=== PATIENT | female | born 1965 | race African-American/Black ===

== ENCOUNTER 2016-11-20 08:23 | Observation (INO) | payer MEDICARE, MEDICAID ==
[~2016-11-20] VITALS: Ht 170.2 cm; Wt 69.8 kg
[~2016-11-20 08:23] MED LIST: INTE30KI IM; MORP1INJ45 PO
--- NOTE | 2016-11-20 14:21 | MH ---
cc: Donnell MALDONADO M.D. DATE OF ADMISSION: 11/21/2016 ADMITTING DIAGNOSIS Bilateral knee contractures with multiple sclerosis. HISTORY OF PRESENT ILLNESS This is a 51-year-old female, known multiple sclerosis patient, being admitted today due to contractures of both knees. She states she has been like this for about a month, is being followed by Dr. Costello her neurologist as well and will most likely need aggressive therapy after surgery. PAST MEDICAL HISTORY 1. Multiple sclerosis. 2. She has developed an ulcer on the skin of her left anterior collins. 3. Anxiety. MEDICATIONS Current medication includes Percocet. REVIEW OF SYSTEMS Noncontributory. FAMILY HISTORY Noncontributory. SOCIAL HISTORY She does not smoke or drink. ALLERGIES No known allergies. PAST SURGICAL HISTORY Right total knee arthroplasty in the past. PHYSICAL EXAMINATION GENERAL: I find a 51-year-old female cachectic, well-nourished, oriented x3, complaining of pain in her legs. VITAL SIGNS: Blood pressure 102/82, pulse 78 and regular, respirations 22, temperature 98.0. Pulse oximetry 98% on room air. HEENT: PERRLA. EOMI. Ears, nose and mouth clear. NECK: Supple. LUNGS: Clear. HEART: Regular rate. ABDOMEN: Soft. Positive bowel sounds. Nontender. EXTREMITIES: Both lower extremities are contracted to 120 degrees of flexion. Any attempt of motion elicits pain. She has an abrasion on the left lower extremity on the anterior collins just above her ankle from pressure. Otherwise she is neurovascularly intact. IMPRESSION The impression at this time is bilateral knee contractures. PLAN The plan is for the patient to undergo manipulation under anesthesia today to see how much range of motion we can get with her, followed by consult and follow-up with Dr. Costello, neurologist, and possible admission to [place] for aggressive therapy after hospital stay. MD SHILO Herrera/NEVA /2:03 PM /2:13 PM
[2016-11-21] MEDS: SODIUM CHLORID 0.9% 500 ML IV SCH (09:00)
[2016-11-21] MEDS ORDERED: METOPROLOL TARTRATE 25 MG TAB PO PRN (09:00)
[2016-11-21] MEDS ORDERED: INSULIN HUMAN REGULAR 1,000 UNITS/10 ML VIAL SQ PRN (09:00)
[2016-11-21 09:05] VITALS: BP 151/82; PULSE 87; RESP 18; TEMP 98.8; O2SAT 99
[2016-11-21] MEDS: LACTATED RINGER'S 1000 ML IV SCH (09:15)
[2016-11-21] MEDS ORDERED: DULO1CAP3 PO (09:34)
[2016-11-21] MEDS ORDERED: ZINC220C3 PO (09:34)
[2016-11-21] MEDS ORDERED: HYDR-3366 PO (09:34)
[2016-11-21] MEDS ORDERED: SENN8.6T8 PO (09:34)
[2016-11-21] MEDS ORDERED: B-COINJ IM (09:34)
[2016-11-21] MEDS ORDERED: MORP15TA73 PO (09:34)
[2016-11-21] MEDS ORDERED: MULT1TAB84 PO (09:34)
[2016-11-21] MEDS ORDERED: BACL10TA PO (09:34)
[2016-11-21] MEDS ORDERED: DULC10SU3 RECTAL (09:34)
[2016-11-21] MEDS ORDERED: COLA100C3 PO (09:34)
[2016-11-21] MEDS ORDERED: MILKSUS PO (09:34)
[2016-11-21] MEDS ORDERED: COLL30T TOPICAL (09:34)
[2016-11-21] MEDS ORDERED: INTE1KIT4 IM (09:34)
[2016-11-21] MEDS ORDERED: VITA500T PO ×2 (09:34→10:28)
[2016-11-21] MEDS ORDERED: PROP60TA PO (09:34)
[2016-11-21 09:41] LABS: APTT (PATIENT) 27.8 SEC (24.3-30.1); INTERNATIONAL NORMALIZED RATIO 1.1 RATIO; PROTHROMBIN TIME - PATIENT 11.8 SEC (9.8-11.6)
[2016-11-21 09:44] LABS: AUTOMATED NEUTROPHIL # 4.8 TH/MM3 (1.8-7.7); BASOPHIL % 0.2 % (0.0-2.0); EOSINOPHIL % 0.6 % (0.0-4.0); HEMATOCRIT 34.7 % (35.0-46.0); LYMPH % 18.2 % (9.0-44.0); LYMPHOCYTE # 1.2 TH/MM3 (1.0-4.8); MEAN CELL VOLUME 69.9 FL (80.0-100.0); MEAN CORPUSCULAR HEMOGLOBIN 22.3 PG (27.0-34.0); MEAN CORPUSCULAR HGB CONC 31.9 % (32.0-36.0); MONO % 8.3 % (0.0-8.0); NEUT % 72.7 % (16.0-70.0); PLATELET COUNT 252 TH/MM3 (150-450); RED BLOOD COUNT 4.96 MIL/MM3 (4.00-5.30); RED CELL DISTRIBUTION WIDTH 17.6 % (11.6-17.2); WHITE BLOOD COUNT 6.7 TH/MM3 (4.0-11.0)
[2016-11-21 09:47] LABS: HEMO FLAGS AUTO DIFF
[2016-11-21 09:56] LABS: ANION GAP 9 MEQ/L (5-15); AST (GOT) 10 U/L (15-37); BICARBONATE 27.9 MEQ/L (21.0-32.0); BLOOD UREA NITROGEN 17 MG/DL (7-18); CHLORIDE 104 MEQ/L (98-107); GLOMERULAR FILTRATION RATE 174 ML/MIN (>89); POTASSIUM 4.1 MEQ/L (3.5-5.1); SODIUM (NA) 141 MEQ/L (136-145)
[2016-11-21 09:59] LABS: ALKALINE PHOSPHATASE 95 U/L (45-117); ALT (GPT) 17 U/L (10-53); TOTAL BILIRUBIN ADULT 0.4 MG/DL (0.2-1.0)
[2016-11-21] MEDS ORDERED: MIDAZOLAM HCL 2 MG/2 ML VIAL ONE (10:05)
[2016-11-21] MEDS ORDERED: MIDAZOLAM HCL 2 MG/2 ML VIAL IVS ONE (10:05)
[2016-11-21] MEDS ORDERED: fentaNYL CITRATE 250 MCG/5 ML AMP ONE (10:06)
[2016-11-21] MEDS ORDERED: SUGAMMADEX SODIUM 200 MG/2 ML VIAL IV PUSH ONE ×2 (10:23)
[2016-11-21] MEDS ORDERED: FERR325T PO (10:28)
[2016-11-21 10:35] LABS: SCAN/DIFF AUTO DIFF CONFIRMED
[2016-11-21] MEDS: LACTATED RINGER'S 1000 ML INJ 1,000 ML IV SCH ×2 (10:52→22:51)
[2016-11-21] MEDS ORDERED: SODIUM CHLORIDE 0.9% FLUSH 5 ML FLUSH IVF PRN (11:00)
[2016-11-21] MEDS ORDERED: ACETAMINOPHEN 325 MG TAB PO PRN (11:00)
[2016-11-21] MEDS ORDERED: Post-op Orders (for Pharmacy) MISC XX ONE (11:00)
[2016-11-21] MEDS ORDERED: BISACODYL 10 MG SUPP RECTAL PRN (11:00)
[2016-11-21] MEDS ORDERED: INTERFERON BETA 30 MCG IM SCH ×2 (11:00→20:45)
[2016-11-21] MEDS ORDERED: ONDANSETRON HCL 4 MG/2 ML VIAL IVP PRN (11:00)
[2016-11-21] MEDS ORDERED: MAGNESIUM HYDROXIDE SUSP 30 ML CUP PO PRN (11:00)
[2016-11-21] MEDS ORDERED: NALOXONE HCL 0.4 MG/ML AMP IV PRN (11:00)
[2016-11-21] MEDS ORDERED: TEMAZEPAM 15 MG CAP PO PRN (11:00)
[2016-11-21] MEDS ORDERED: B COMPLEX VITAMINS IM SCH (11:00)
[2016-11-21] MEDS ORDERED: diphenhydrAMINE HCL 50 MG/ML VIAL IV PRN (11:00)
[2016-11-21] MEDS ORDERED: *HYDROmorphone PF 1 MG VIAL PERIprocedural Use ONLY ONE (11:23)
[2016-11-21] MEDS ORDERED: fentaNYL 2MCG-BUPIV 0.125% INJ 100 ML ONE ×2 (11:26→21:01)
[2016-11-21] MEDS ORDERED: DO NOT ADM ANY ANTICOAGULANT DRUGS XX PRN (11:30)
[2016-11-21] MEDS ORDERED: *morphine SULFATE 8 MG/ML PERIprocedure ONLY ONE (11:32)
[2016-11-21] MEDS ORDERED: PROPOFOL 200 MG/20 ML AMP IV ONE (12:00)
[2016-11-21] MEDS ORDERED: ONDANSETRON HCL 4 MG/2 ML VIAL IV PUSH ONE (12:00)
[2016-11-21 12:35] VITALS: BP 108/69; PULSE 89; RESP 18; TEMP 98.5; O2SAT 100
[2016-11-21] MEDS ORDERED: ePHEDrine/NS 25 MG/5 ML SYR IV PRN (12:45)
[2016-11-21] MEDS ORDERED: NO SYSTEM NARCOTICS XX PRN (12:45)
[2016-11-21] MEDS ORDERED: DO NOT ADMINISTER ANTICOAGULANTS XX PRN (12:45)
--- NOTE | 2016-11-21 13:26 | PD.CONS ---
[facility] Request[facility] By Reason for Consult medical management Primary Care Physician Kt Costello MD Diagnoses: History of Present Illness patient is a 51 y/o female with history of multiple sclerosis with knee contractures who underwent manipulation of the knees today. at the time of my evaluation she was in no acute distress-however- complaining of pain to both knees. she denies any other complaints ; no chest pain, abdominal pain, nausea. Review of Systems Constitutional: DENIES: Fever, Weight loss, Chills, Night Sweats Eyes: DENIES: Blurred vision, Diplopia, Vision loss, Double Vision Ears, nose, mouth, throat: DENIES: Tinnitus, Vertigo, Throat pain, Epistaxis Respiratory: DENIES: Apneas, Cough, Snoring, Wheezing, Hemoptysis, Sputum production, Shortness of breath Cardiovascular: DENIES: Chest pain, Palpitations, Syncope, Dyspnea on Exertion , PND, Lower Extremity Edema, Orthopnea, Claudication Gastrointestinal: DENIES: Abdominal pain, Black stools, Bloody stools, Constipation, Diarrhea, Nausea, Vomiting, Difficulty Swallowing, Anorexia Genitourinary: DENIES: Urinary frequency, Urgency, Hematuria, Dysuria Musculoskeletal: COMPLAINS OF: Joint pain (knees), DENIES: Muscle aches, Stiffness, Joint Swelling Integumentary: DENIES: Rash Neurologic: DENIES: Abnormal gait, Headache, Localized weakness, Paresthesias, Seizures, Speech Problems, Tremor, Poor Balance Psychiatric: DENIES: Anxiety, Confusion, Mood changes, Depression, Hallucinations, Agitation, Suicidal Ideation, Homicidal Ideation, Delusions Past Family Social History Allergies: Coded Allergies: Lortab (Unverified Allergy, Mild, patient states no allergy, 11/21/16) Past Medical History multiple sclerosis Past Surgical History knee arthroplasty Reported Medications vitamic C vitamin B zinc ferrous sulfate morphine interferon cymbalta propranolol Active Ordered Medications Current Medications Lactated Ringer's 1,000 ml @ 30 mls/hr Q24H IV Last administered on 11/21/16t 09:15; Start 11/21/16 at 09:00 Sodium Chloride (NS 500 ml Inj) 500 ml @ 30 mls/hr [id number] IV ; Start 11/21/16 at 09:00; Stop 11/22/16 at 08:59 Insulin Human Regular (NovoLIN R INJ) See Protocol Table ... UNSCH X1 PRN SQ SEE PROTOCOL; Start 11/21/16 at 09:00; Stop 11/22/16 at 08:59 Metoprolol Tartrate (Lopressor) 25 mg UNSCH X1 PRN PO SEE LABEL COMMENTS; Start 11/21/16 at 09:00; Stop 11/22/16 at 08:59 Midazolam HCl (Versed Inj) 2 mg STK-MED ONCE .ROUTE ; Start 11/21/16 at 10:05; Stop 11/21/16 at 10:06; Status DC Fentanyl Citrate (fentaNYL INJ) 250 mcg STK-MED ONCE .ROUTE ; Start 11/21/16 at 10:06; Stop 11/21/16 at 10:07; Status DC Midazolam HCl (Versed Inj) 2 mg STK-MED ONCE IVS Last administered on 11/21/16t 10:05; Start 11/21/16 at 10:05; Stop 11/21/16 at 10:10; Status DC Sugammadex Sodium (Bridion Inj) 200 mg STK-MED ONCE IV PUSH ; Start 11/21/16 at 10:23; Stop 11/21/16 at 10:24; Status DC Ascorbic Acid (Vitamin C) 500 mg BID PO ; Start 11/21/16 at 21:00 Baclofen (Lioresal) 10 mg TID PO ; Start 11/21/16 at 13:00 Bisacodyl (Dulcolax Supp) 10 mg DAILY PRN RECTAL CONSTIPATION; Start 11/21/16 at 11:00 Collagenase (Santyl Oint) 1 applic DAILY TOP ; Start 11/22/16 at 09:00 Docusate Sodium (Colace) 100 mg BID PO ; Start 11/21/16 at 21:00 Duloxetine HCl (Cymbalta Dr) 60 mg DAILY PO ; Start 11/22/16 at 09:00 Ferrous Sulfate (Ferrous Sulfate) 325 mg DAILY PO ; Start 11/22/16 at 09:00 Acetaminophen/ Hydrocodone Bitart (Jessup 10-325 Mg) 1 tab Q6H PRN PO PAIN 1-10 ; Start 11/21/16 at 11:00 Magnesium Hydroxide (Milk Of Magnesia Liq) 30 ml DAILY PRN PO INDIGESTION OR UPSET STOMACH; Start 11/21/16 at 11:00 Morphine Sulfate (Oramorph Sr) 15 mg BID PO ; Start 11/21/16 at 21:00 Multivitamins/ Minerals Therapeutic (Theragran M Tab) 1 tab DAILY PO ; Start 11/22/16 at 09:00; Status UNV Propranolol HCl (Inderal) 60 mg DAILY PO ; Start 11/22/16 at 09:00 Zinc Sulfate (Zinc Sulfate) 220 mg DAILY PO ; Start 11/22/16 at 09:00 Non-Formulary Medication 1 injection MONTHLY IM ; Start 11/21/16 at 11:00; Status UNV Non-Formulary Medication 30 mcg 30 mcg DIRECTED IM Multiple sclerosis; Start 11/21/16 at 11:00; Status UNV Lactated Ringer's (Lr 1000 ml Inj) 1,000 ml @ 80 mls/hr [id number] IV ; Start 11/21 at 10:52 IV Flush (NS Flush) 2 ml UNSCH PRN IVF FLUSH AFTER USING IV ACCESS; Start at 11:00 IV Flush (NS Flush) 2 ml BID IVF ; Start 11/21/16 at 21:00 Miscellaneous Information (Post-op Orders (for Pharmacy)) STAT ONCE XX ; Start 11/21/16 at 11:00; Stop 11/21/16 at 11:30; Status DC Acetaminophen (Tylenol) 650 mg Q6H PRN PO temp over 101; Start 11/21/16 at 11:00 Multivitamins/ Minerals Therapeutic (Theragran M Tab) 1 tab BID PO ; Start at 21:00; Stop 01/21/17 at 20:59 Ondansetron HCl (Zofran Inj) 4 mg Q6H PRN IVP NAUSEA OR VOMITING; Start at 11:00 Docusate Sodium (Colace) 100 mg BID PO ; Start 11/22/16 at 21:00; Status UNV Temazepam (Restoril) 15 mg HS PRN PO SLEEP; Start 11/21/16 at 11:00 Naloxone HCl (Narcan Inj) 0.4 mg UNSCH PRN IV RESPIRATORY RATE LESS THAN 10; Start 11/21/16 at 11:00 Diphenhydramine HCl (Benadryl Inj) 25 mg Q6H PRN IV ITCHING; Start 11/21/16 at 11:00 Hydromorphone HCl 1 mg 1 mg STK-MED ONCE .ROUTE ; Start 11/21/16 at 11:23; Stop 11/21/16 at 11:24; Status DC Fentanyl/ Bupivacaine HCl (fentaNYL 2MCG-BUPIV 0.125% INJ) 100 ml @ As Directed STK-MED ONCE .ROUTE ; Start 11/21/16 at 11:26; Stop 11/21/16 at 11:27; Status DC Morphine Sulfate (*morphine INJ PERIprocedure ONLY) 8 mg STK-MED ONCE .ROUTE ; Start 11/21/16 at 11:32; Stop 11/21/16 at 11:33; Status DC Miscellaneous Information ALL NURSING DEPARTME... UNSCH PRN XX SEE LABEL COMMENTS; Start 11/21/16 at 11:30; Stop 11/22/16 at 11:29 Fentanyl Citrate (fentaNYL INJ) 100 mcg STK-MED ONCE .ROUTE ; Start 11/21/16 at 11:39; Stop 11/21/16 at 11:40; Status DC Senna/Docusate Sodium (Heather-Colace) 2 tab HS PO ; Start 11/21/16 at 21:00 Miscellaneous Information No systemic narcotics to be given except... UNSCH PRN XX SEE DOSE INSTRUCTIONS; Start 11/21/16 at 12:45; Stop 11/22/16 at 12:44 Miscellaneous Information DO NOT ADMINISTER ANY ANTICOAGUL... UNSCH PRN XX SEE DOSE INSTRUCTIONS; Start 11/21/16 at 12:45; Stop 11/22/16 at 12:44 Ephedrine Sulfate (ePHEDrine/NS 25 MG/5 ML SYR) 10 mg UNSCH PRN IV SEE LABEL COMMENTS; Start 11/21/16 at 12:45; Stop 11/22/16 at 12:44 Family History not relevant to this consult. Social History no smoking or drinking. Physical Exam Vital Signs Vital Signs Date Time Temp Pulse Resp B/P Pulse Ox O2 Delivery O2 Flow Rate FiO2 11/21/16 12:30 85 20 139/82 100 Nasal Cannula 2 11/21/16 12:15 85 20 140/83 100 Nasal Cannula 2 11/21/16 12:00 85 20 142/82 100 Nasal Cannula 2 11/21/16 11:45 85 20 141/84 100 Nasal Cannula 2 11/21/16 11:30 108 20 172/93 100 Nasal Cannula 2 11/21/16 11:13 97.8 117 20 171/103 100 Nasal Cannula 2 11/21/16 09:05 98.8 87 18 151/82 99 Physical Exam GENERAL: in no apparent distress. SKIN: No rashes, ecchymoses or lesions. Cool and dry. HEAD: Atraumatic. Normocephalic. No temporal or scalp tenderness. EYES: Pupils equal round and reactive. Extraocular motions intact. No scleral icterus. No injection or drainage. ENT: Nose without bleeding, purulent drainage or septal hematoma. Throat without erythema, tonsillar hypertrophy or exudate. Uvula midline. Airway patent. NECK: Trachea midline. No JVD or lymphadenopathy. Supple, nontender, no meningeal signs. CARDIOVASCULAR: Regular rate and rhythm without murmurs, gallops, or rubs. RESPIRATORY: Clear to auscultation. Breath sounds equal bilaterally. No wheezes , rales, or rhonchi. GASTROINTESTINAL: Abdomen soft, non-tender, nondistended. No hepato-splenomegaly , or palpable masses. No guarding. MUSCULOSKELETAL: Extremities with no pedal edema. NEUROLOGICAL: Awake and alert. Cranial nerves II through XII intact. Motor and sensory grossly within normal limits. Five out of 5 muscle strength in all muscle groups. Normal speech. Laboratory Laboratory Tests Test 11/21/16 09:05 White Blood Count 6.7 Red Blood Count 4.96 Hemoglobin 11.1 Hematocrit 34.7 Mean Corpuscular Volume 69.9 Mean Corpuscular Hemoglobin 22.3 Mean Corpuscular Hemoglobin 31.9 Concent Red Cell Distribution Width 17.6 Platelet Count 252 Mean Platelet Volume 7.5 Neutrophils (%) (Auto) 72.7 Lymphocytes (%) (Auto) 18.2 Monocytes (%) (Auto) 8.3 Eosinophils (%) (Auto) 0.6 Basophils (%) (Auto) 0.2 Neutrophils # (Auto) 4.8 Lymphocytes # (Auto) 1.2 Monocytes # (Auto) 0.6 Eosinophils # (Auto) 0.0 Basophils # (Auto) 0.0 CBC Comment AUTO DIFF Differential Comment AUTO DIFF CONFIRMED Prothrombin Time 11.8 Prothromb Time International 1.1 Ratio Activated Partial 27.8 Thromboplast Time Sodium Level 141 Potassium Level 4.1 Chloride Level 104 Carbon Dioxide Level 27.9 Anion Gap 9 Blood Urea Nitrogen 17 Creatinine 0.46 Estimat Glomerular Filtration 174 Rate Random Glucose 91 Calcium Level 9.4 Total Bilirubin 0.4 Aspartate Amino Transf 10 (AST/SGOT) Alanine Aminotransferase 17 (ALT/SGPT) Alkaline Phosphatase 95 Total Protein 8.2 Albumin 3.2 Result Diagram: 11/21/1690411/21/16904 Assessment and Plan Assessment and Plan A/P - knee contractures- s/p manipulation under anesthesia continue pain control and rehab efforts- management per ortho. -multiple sclerosis- resumed home meds- neurology consulted. -DVT prophylaxis; SCD's -per ortho. thank you for the consult. Discussed Condition With the patient. Chase Rosales MD Nov 21, 2016 13:26
[2016-11-21 15:48] VITALS: O2SAT 99
[2016-11-21 16:00] VITALS: BP 117/69; PULSE 94; RESP 18; TEMP 99.9; O2SAT 100
[2016-11-21] MEDS: BACLOFEN 10 MG TAB PO SCH (16:00)
--- NOTE | 2016-11-21 16:44 | RADRPT ---
EXAM DATE/TIME: 11/21/2016 16:16 [place] COMPARISON: No previous studies available for comparison. INDICATIONS : Post op Left knee manipulation in the operating room. MEDICAL HISTORY : None. SURGICAL HISTORY : None. ENCOUNTER: Initial ACUITY: 1 day PAIN SCORE: Non-responsive. LOCATION: Left knee FINDINGS: Two view examination of the left knee demonstrates no evidence of fracture or dislocation. Bony mine ralization is normal. The suprapatellar soft tissues have a normal configuration. CONCLUSION: Unremarkable limited examination of the left knee. Tobi Cannon MD on November 21, 2016 at 16:43 Board Certified Radiologist. This report was verified electronically.
[2016-11-21 20:00] VITALS: BP 149/88; PULSE 96; RESP 17; TEMP 98.2; O2SAT 100
[2016-11-21] MEDS: DOCUSATE SODIUM 100 MG CAP PO SCH (21:00)
[2016-11-21] MEDS: SODIUM CHLORIDE 0.9% FLUSH 5 ML FLUSH IVF SCH (21:00)
[2016-11-21] MEDS: DOCUSATE SODIUM 50 MG/SENNA 8.6 MG TAB PO SCH (21:00)
[2016-11-21] MEDS: ASCORBIC ACID 500 MG TAB PO SCH (22:53)
[2016-11-21] MEDS: MORPHINE SULFATE 15 MG CONTROLLED RELEASE TAB PO SCH (22:56)
--- NOTE | 2016-11-21 23:36 | EKG ---
Date Performed: 11/21/2016 Time Performed: 08:49:25 PTAGE: 51 years EKG: Sinus rhythm NORMAL ECG PREVIOUS TRACING : 11/18/2012 11.25 Compared to the previous tracing, sinus tachycardia is no longer present DOCTOR: Tristen Patterson Interpretating Date/Time 11/21/2016 23:35:28
[2016-11-22] VITALS (7 sets, daily range): BP systolic 88–135; BP diastolic 54–76; PULSE 80–122; RESP 14–18; TEMP 96.4–100.1; O2SAT 98–100
[2016-11-22] MEDS: BACLOFEN 10 MG TAB PO SCH ×4 (00:57→18:00)
[2016-11-22] MEDS: SODIUM CHLORID 0.9% 500 ML IV SCH (01:40)
[2016-11-22] MEDS: PROPRANOLOL HCL 20 MG TAB PO SCH (08:20)
[2016-11-22] MEDS: MORPHINE SULFATE 15 MG CONTROLLED RELEASE TAB PO SCH ×2 (08:20→22:05)
[2016-11-22] MEDS: DOCUSATE SODIUM 100 MG CAP PO SCH ×2 (08:20→21:00)
[2016-11-22] MEDS: ASCORBIC ACID 500 MG TAB PO SCH ×2 (08:20→22:04)
[2016-11-22] MEDS: FERROUS SULFATE 325 MG (65 MG ELEMENTAL IRON) TAB PO SCH (08:20)
[2016-11-22] MEDS: DULoxetine HCl DR 60 MG CAP PO SCH (08:21)
--- NOTE | 2016-11-22 08:25 | HHI.PR ---
Objective Vital Signs Date Time Temp Pulse Resp B/P Pulse Ox O2 Delivery O2 Flow Rate FiO2 11/22/16 04:00 99.7 122 16 135/71 100 11/22/16 00:00 99.8 122 16 127/72 100 11/21/16 20:00 98.2 96 17 149/88 100 11/21/16 19:47 3.00 11/21/16 16:00 99.9 94 18 117/69 100 11/21/16 15:48 99 Nasal Cannula 3.00 11/21/16 15:48 99 Nasal Cannula 21 11/21/16 12:35 98.5 89 18 108/69 100 11/21/16 12:30 85 20 139/82 100 Nasal Cannula 2 11/21/16 12:15 85 20 140/83 100 Nasal Cannula 2 11/21/16 12:00 85 20 142/82 100 Nasal Cannula 2 11/21/16 11:45 85 20 141/84 100 Nasal Cannula 2 11/21/16 11:30 108 20 172/93 100 Nasal Cannula 2 11/21/16 11:13 97.8 117 20 171/103 100 Nasal Cannula 2 11/21/16 09:05 98.8 87 18 151/82 99 I/O 11/21/16 11/21/16 11/21/16 11/22/16 11/22/16 11/22/16 06:59 14:59 22:59 06:59 14:59 22:59 Intake Total 600 ml 956 ml 566 ml Output Total 0 ml Balance 600 ml 956 ml 566 ml Intake Oral 0 ml 120 ml IV Total 400 ml 956 ml 446 ml Other 200 ml Output Urine Total 0 ml Estimated Blood Loss 0 ml Other 0 ml # Voids 1 # Bowel Movements 0 Result Diagram: 11/21/16 0905 11/21/16 0905 Other Results b12 nl Objective Remarks pain inc still bad ctx Assessment and Plan Assessment and Plan imp i am hoping rehab can do botox today I put in contact with dr hinson needs pain drip inc? Kt Costello MD Nov 22, 2016 08:25
[2016-11-22] MEDS ORDERED: MORPHINE SULFATE PF 5 MG/10 ML VIAL ONE (08:30)
--- NOTE | 2016-11-22 08:40 | MB ---
cc: ASH LAO DATE OF CONSULTATION: 11/21/2016 HISTORY OF PRESENT ILLNESS The patient is well-known to me for many years with MS, somewhat atypical MS on MRI findings, been on Avonex for years. Had chronic lower extremity pain, some pain in her knees but was ambulatory up until about a [id number] or two months ago when she wound up in the hospital [facility] in [facility] in [facility]. Since that time she has not walked and developed contractures of the knees where she keeps her knees flexed about almost 180 degrees and unable to straighten out due to so much pain in the knees however with rehab. So we brought her in the hospital today and Dr. Colon was kind enough to try to under anesthesia straighten her knees out; unfortunately, he could only get her to about 80 degrees and we are going to try Botox on her. MEDICATIONS She has got a fentanyl epidural drip in. She is on other meds - 1. Multivitamin. 2. Cymbalta 60 a day. 3. Inderal 60 a day. 4. Some vitamins. 5. Morphine orally 15 b.i.d. 6. Baclofen 10 t.i.d. ALLERGIES LORTAB. SOCIAL HISTORY Not a smoker or drinker. Used to live alone independently in [facility] and walk down the sidewalk, walk to [facility] but not anymore. NEUROLOGIC EXAMINATION VITAL SIGNS: 99 is her T-max but generally afebrile, 94, 18, 117/69. She is awake and alert. She recognizes me. Visual sinha are full. Face is symmetric. Moves her upper extremities well. She still has marked spasm of the hamstring with some atrophy there bilaterally. She is at about 80 degrees on the left, 60 degrees on the right now. We can move her knees a bit better than we could before without her yelling out in too much pain. LABORATORY DATA Her CBC is essentially unremarkable. Basic metabolic profile, LFTs normal. Albumin is 3.2. Coags normal. IMAGING Knee x-ray unremarkable, limited of the left knee. IMPRESSION AND RECOMMENDATION MS, spasticity in bilateral lower extremities. At this point, we will contact Dr. Mccollum of Rehab and she is going to try to set her up for Botox and maybe try to get her up into [place]. We need to get the Botox done MARIEL while she is still on the pain drip as we have had a lot of difficulty trying to straighten her legs out at the skilled nursing due to so much knee pain, i.e., pain in the knee itself. MD LARRY Calderón/BJF /5:57 PM /8:31 AM
--- NOTE | 2016-11-22 08:42 | PD.ORT.PN ---
Subjective Subjective Remarks patient still very painful. Range of Motion On CPMs. No calf tenderness. Moving toes well. Objective Vitals Vital Signs Date Time Temp Pulse Resp B/P Pulse Ox O2 Delivery O2 Flow Rate FiO2 11/22/16 04:00 99.7 122 16 135/71 100 11/22/16 00:00 99.8 122 16 127/72 100 11/21/16 20:00 98.2 96 17 149/88 100 11/21/16 19:47 3.00 11/21/16 16:00 99.9 94 18 117/69 100 11/21/16 15:48 99 Nasal Cannula 3.00 11/21/16 15:48 99 Nasal Cannula 21 11/21/16 12:35 98.5 89 18 108/69 100 11/21/16 12:30 85 20 139/82 100 Nasal Cannula 2 11/21/16 12:15 85 20 140/83 100 Nasal Cannula 2 11/21/16 12:00 85 20 142/82 100 Nasal Cannula 2 11/21/16 11:45 85 20 141/84 100 Nasal Cannula 2 11/21/16 11:30 108 20 172/93 100 Nasal Cannula 2 11/21/16 11:13 97.8 117 20 171/103 100 Nasal Cannula 2 11/21/16 09:05 98.8 87 18 151/82 99 I/O 11/21/16 11/21/16 11/21/16 11/22/16 11/22/16 11/22/16 07:00 15:00 23:00 07:00 15:00 23:00 Intake Total 600 ml 956 ml 566 ml Output Total 0 ml Balance 600 ml 956 ml 566 ml Intake Oral 0 ml 120 ml IV Total 400 ml 956 ml 446 ml Other 200 ml Output Urine Total 0 ml Estimated Blood Loss 0 ml Other 0 ml # Voids 1 # Bowel Movements 0 Result Diagram: 11/21/16 0905 11/21/16 0905 Other Results Laboratory Tests Test 11/21/16 09:05 Prothrombin Time 11.8 SEC (9.8-11.6) Prothromb Time International 1.1 RATIO Ratio Imaging Last 24 hours Impressions Knee X-Ray 11/21/16 1052 Signed Impressions: Service Date/Time: November 16:16 - CONCLUSION: Unremarkable limited examination of the left knee. Tobi Cannon MD Assessment & Plan Ortho Post Op Day #: 1 Problem List: Assessment and Plan Rehab per Dr Hernandes. Donnell Colon MD Nov 22, 2016 08:42
[2016-11-22] MEDS: COLLAGENASE OINT 30 GM TUBE TOP SCH (09:00)
[2016-11-22] MEDS ORDERED: HYDROmorphone HCL PF 1 MG/ML VIAL IV PUSH ONE (09:00)
[2016-11-22] MEDS ORDERED: MULTIVITAMINS/MINERALS THERAPEUTIC TAB PO SCH (09:00)
[2016-11-22] MEDS: ZINC SULFATE 220 MG CAP PO SCH (09:00)
[2016-11-22] MEDS: LACTATED RINGER'S 1000 ML IV SCH (09:08)
[2016-11-22] MEDS: SODIUM CHLORIDE 0.9% FLUSH 5 ML FLUSH IVF SCH ×2 (09:08→21:00)
--- NOTE | 2016-11-22 10:00 | MP ---
cc: Donnell COLON DATE OF SURGERY: 11/21/2016 PREOPERATIVE DIAGNOSIS Knee contractures, both right and left knees. POSTOPERATIVE DIAGNOSIS Knee contractures, both right and left knees. SURGERY PERFORMED Manipulation under anesthesia, both knees. SURGEON Dr. Colon ANESTHESIA General intubation. PROCEDURE The patient was brought to the operating room and was placed on the operating table in supine position. After successful induction of general anesthesia and muscle relaxants, the patient's right and left knees were manipulated. Prior to manipulation she had 120 degrees of flexion contracture both knees. After manipulation she had 80-120 degrees. The knees were placed in CPM machines and the patient received an epidural for postoperative pain control to help with physical therapy. She will be receiving treatment by Dr. Costello and hopefully transfer her to [place] for rehab. The patient left the operating room in satisfactory condition. J. MD SHILO Jimenez/NEVA /11:22 AM /9:43 AM
[2016-11-22] MEDS ORDERED: ONABOTULINUMTOXINA INJ 100 UNITS/VIAL SCH (11:00)
--- NOTE | 2016-11-22 11:19 | HHI.PR ---
Subjective Remarks in no distress. pain is better controlled. looks more comfortable now. d/w the RN. Objective Vitals Vital Signs Date Time Temp Pulse Resp B/P Pulse Ox O2 Delivery O2 Flow Rate FiO2 11/22/16 09:56 99 Nasal Cannula 2.00 11/22/16 08:00 98.3 84 14 120/69 100 11/22/16 04:00 99.7 122 16 135/71 100 11/22/16 00:00 99.8 122 16 127/72 100 11/21/16 20:00 98.2 96 17 149/88 100 11/21/16 19:47 3.00 11/21/16 16:00 99.9 94 18 117/69 100 11/21/16 15:48 99 Nasal Cannula 3.00 11/21/16 15:48 99 Nasal Cannula 21 11/21/16 12:35 98.5 89 18 108/69 100 11/21/16 12:30 85 20 139/82 100 Nasal Cannula 2 11/21/16 12:15 85 20 140/83 100 Nasal Cannula 2 11/21/16 12:00 85 20 142/82 100 Nasal Cannula 2 11/21/16 11:45 85 20 141/84 100 Nasal Cannula 2 11/21/16 11:30 108 20 172/93 100 Nasal Cannula 2 I/O 11/21/16 11/21/16 11/21/16 11/22/16 11/22/16 11/22/16 07:00 15:00 23:00 07:00 15:00 23:00 Intake Total 600 ml 956 ml 566 ml Output Total 0 ml Balance 600 ml 956 ml 566 ml Intake Oral 0 ml 120 ml IV Total 400 ml 956 ml 446 ml Other 200 ml Output Urine Total 0 ml Estimated Blood Loss 0 ml Other 0 ml # Voids 1 # Bowel Movements 0 Result Diagram: 11/21/16 0905 11/21/16 0905 Imaging Last Impressions Knee X-Ray 11/21/16 1052 Signed Impressions: Service Date/Time: November 16:16 - CONCLUSION: Unremarkable limited examination of the left knee. Tobi Cannon MD Objective Remarks GENERAL: This is a well-nourished, well-developed patient, in no apparent distress. CARDIOVASCULAR: Regular rate and regular rhythm without murmurs, gallops, or rubs. RESPIRATORY: Clear to auscultation. Breath sounds equal bilaterally. No wheezes , rales, or rhonchi. GASTROINTESTINAL: Abdomen soft, non-tender, nondistended. Normal, active bowel sounds MUSCULOSKELETAL: Extremities without clubbing, cyanosis, or edema. NEURO: awake and alert Medications and IVs Current Medications Lactated Ringer's 1,000 ml @ 30 mls/hr Q24H IV Last administered on 11/22/16 09:08; Start 11/21/16 at 09:00 Sodium Chloride (NS 500 ml Inj) 500 ml @ 30 mls/hr [id number] IV ; Start 11/21/16 at 09:00; Stop 11/22/16 at 08:59; Status DC Insulin Human Regular (NovoLIN R INJ) See Protocol Table ... UNSCH X1 PRN SQ SEE PROTOCOL; Start 11/21/16 at 09:00; Stop 11/22/16 at 08:59; Status DC Metoprolol Tartrate (Lopressor) 25 mg UNSCH X1 PRN PO SEE LABEL COMMENTS; Start 11/21/16 at 09:00; Stop 11/22/16 at 08:59; Status DC Midazolam HCl (Versed Inj) 2 mg STK-MED ONCE .ROUTE ; Start 11/21/16 at 10:05; Stop 11/21/16 at 10:06; Status DC Fentanyl Citrate (fentaNYL INJ) 250 mcg STK-MED ONCE .ROUTE ; Start 11/21/16 at 10:06; Stop 11/21/16 at 10:07; Status DC Midazolam HCl (Versed Inj) 2 mg STK-MED ONCE IVS Last administered on 11/21/16 10:05; Start 11/21/16 at 10:05; Stop 11/21/16 at 10:10; Status DC Sugammadex Sodium (Bridion Inj) 200 mg STK-MED ONCE IV PUSH ; Start 11/21/16 at 10:23; Stop 11/21/16 at 10:24; Status DC Ascorbic Acid (Vitamin C) 500 mg BID PO Last administered on 11/22/16 08:20; Start 11/21/16 at 21:00 Baclofen (Lioresal) 10 mg TID PO Last administered on 11/22/16 08:20; Start 11/21/16 at 13:00 Bisacodyl (Dulcolax Supp) 10 mg DAILY PRN RECTAL CONSTIPATION; Start 11/21/16 at 11:00 Collagenase (Santyl Oint) 1 applic DAILY TOP ; Start 11/22/16 at 09:00 Docusate Sodium (Colace) 100 mg BID PO Last administered on 11/22/16 08:20; Start 11/21/16 at 21:00 Duloxetine HCl (Cymbalta Dr) 60 mg DAILY PO Last administered on 11/22/16 08:21 ; Start 11/22/16 at 09:00 Ferrous Sulfate (Ferrous Sulfate) 325 mg DAILY PO Last administered on 08:20; Start 11/22/16 at 09:00 Acetaminophen/ Hydrocodone Bitart ([place] 10-325 Mg) 1 tab Q6H PRN PO PAIN 1-10 ; Start 11/21/16 at 11:00 Magnesium Hydroxide (Milk Of Magnesia Liq) 30 ml DAILY PRN PO INDIGESTION OR UPSET STOMACH; Start 11/21/16 at 11:00 Morphine Sulfate (Oramorph Sr) 15 mg BID PO Last administered on 11/22/16 08:20 ; Start 11/21/16 at 21:00 Multivitamins/ Minerals Therapeutic (Theragran M Tab) 1 tab DAILY PO ; Start 11/22/16 at 09:00; Status UNV Propranolol HCl (Inderal) 60 mg DAILY PO Last administered on 11/22/16 08:20; Start 11/22/16 at 09:00 Zinc Sulfate (Zinc Sulfate) 220 mg DAILY PO ; Start 11/22/16 at 09:00 Non-Formulary Medication 1 injection MONTHLY IM ; Start 11/21/16 at 11:00; Status UNV Non-Formulary Medication 30 mcg 30 mcg DIRECTED IM Multiple sclerosis; Start 11/21/16 at 11:00; Stop 11/21/16 at 20:37; Status DC Lactated Ringer's (Lr 1000 ml Inj) 1,000 ml @ 80 mls/hr [id number] IV Last administered on 11/21/16 22:51; Start 11/21/16 at 10:52 IV Flush (NS Flush) 2 ml UNSCH PRN IVF FLUSH AFTER USING IV ACCESS; Start at 11:00 IV Flush (NS Flush) 2 ml BID IVF Last administered on 11/22/16 09:08; Start 11/21/16 at 21:00 Miscellaneous Information (Post-op Orders (for Pharmacy)) STAT ONCE XX ; Start 11/21/16 at 11:00; Stop 11/21/16 at 11:30; Status DC Acetaminophen (Tylenol) 650 mg Q6H PRN PO temp over 101; Start 11/21/16 at 11:00 Multivitamins/ Minerals Therapeutic (Theragran M Tab) 1 tab BID PO ; Start at 21:00; Stop 01/21/17 at 20:59 Ondansetron HCl (Zofran Inj) 4 mg Q6H PRN IVP NAUSEA OR VOMITING; Start at 11:00 Docusate Sodium (Colace) 100 mg BID PO ; Start 11/22/16 at 21:00; Status UNV Temazepam (Restoril) 15 mg HS PRN PO SLEEP; Start 11/21/16 at 11:00 Naloxone HCl (Narcan Inj) 0.4 mg UNSCH PRN IV RESPIRATORY RATE LESS THAN 10; Start 11/21/16 at 11:00 Diphenhydramine HCl (Benadryl Inj) 25 mg Q6H PRN IV ITCHING; Start 11/21/16 at 11:00 Hydromorphone HCl 1 mg 1 mg STK-MED ONCE .ROUTE Last administered on 11/21/16 11:23; Start 11/21/16 at 11:23; Stop 11/21/16 at 11:24; Status DC Fentanyl/ Bupivacaine HCl (fentaNYL 2MCG-BUPIV 0.125% INJ) 100 ml @ As Directed STK-MED ONCE .ROUTE ; Start 11/21/16 at 11:26; Stop 11/21/16 at 11:27; Status DC Morphine Sulfate (*morphine INJ PERIprocedure ONLY) 8 mg STK-MED ONCE .ROUTE Last administered on 11/21/16 11:32; Start 11/21/16 at 11:32; Stop 11/21/16 at 11: 33; Status DC Miscellaneous Information ALL NURSING DEPARTME... UNSCH PRN XX SEE LABEL COMMENTS; Start 11/21/16 at 11:30; Stop 11/22/16 at 11:29 Fentanyl Citrate (fentaNYL INJ) 100 mcg STK-MED ONCE .ROUTE ; Start 11/21/16 at 11:39; Stop 11/21/16 at 11:40; Status DC Senna/Docusate Sodium (Heather-Colace) 2 tab HS PO ; Start 11/21/16 at 21:00 Miscellaneous Information No systemic narcotics to be given except... UNSCH PRN XX SEE DOSE INSTRUCTIONS; Start 11/21/16 at 12:45; Stop 11/22/16 at 12:44 Miscellaneous Information DO NOT ADMINISTER ANY ANTICOAGUL... UNSCH PRN XX SEE DOSE INSTRUCTIONS; Start 11/21/16 at 12:45; Stop 11/22/16 at 12:44 Ephedrine Sulfate (ePHEDrine/NS 25 MG/5 ML SYR) 10 mg UNSCH PRN IV SEE LABEL COMMENTS; Start 11/21/16 at 12:45; Stop 11/22/16 at 12:44 Non-Formulary Medication 30 mcg 30 mcg DIRECTED IM Multiple sclerosis; Start 11/21/16 at 20:45; Status UNV Fentanyl/ Bupivacaine HCl (fentaNYL 2MCG-BUPIV 0.125% INJ) 100 ml @ As Directed STK-MED ONCE .ROUTE ; Start 11/21/16 at 21:01; Stop 11/21/16 at 21:02; Status DC Onabotulinumtoxina (Botox Inj) 200 units UNSCH .XX ; Start 11/22/16 at 11:00 Hydromorphone HCl (Dilaudid Pf Inj) 0.5 mg NOW ONCE IV PUSH Last administered on 11/22/16t 09:01; Start 11/22/16 at 09:00; Stop 11/22/16 at 09:01; Status DC Morphine Sulfate (Duramorph Pf 0.5 Mg/ml Inj) 5 mg STK-MED ONCE .ROUTE ; Start 11/22/16 at 08:30; Stop 11/22/16 at 08:56; Status DC Fentanyl Citrate (fentaNYL INJ) 100 mcg STK-MED ONCE .ROUTE ; Start 11/22/16 at 08:31; Stop 11/22/16 at 08:56; Status DC Propofol (Diprivan 200 Mg/20 ml Inj) 200 mg STK-MED ONCE IV ; Start 11/21/16 at 12:00; Stop 11/22/16 at 10:45; Status DC Ondansetron HCl (Zofran Inj) 4 mg STK-MED ONCE IV PUSH ; Start 11/21/16 at 12:00 ; Stop 11/22/16 at 10:45; Status DC A/P Assessment and Plan - knee contractures- s/p manipulation under anesthesia continue pain control and rehab efforts- management per ortho. rehab medicine consulted- -multiple sclerosis- resumed home meds- neurology following. -DVT prophylaxis; SCD's -per ortho. Chase Rosales MD Nov 22, 2016 11:19
[2016-11-22] MEDS: LACTATED RINGER'S 1000 ML INJ 1,000 ML IV SCH (11:52)
[2016-11-22] MEDS ORDERED: fentaNYL 2MCG-BUPIV 0.125% INJ 100 ML ONE (12:35)
--- NOTE | 2016-11-22 17:54 | PD.CONS ---
[facility] Service Rehabilitation Medicine Consult Requested By Luis Colon M.D. and Kt Costello M.D. Reason for Consult Comprehensive rehabilitation evaluation. Primary Care Physician Unknown History of Present Illness Denia Anaya is a 51-year-old right-hand dominant female admitted [facility] 11/21/16 with history of multiple sclerosis. Patient apparently was able to ambulate with a walker until approximately 2 months ago when she was hospitalized. She was subsequently transferred to alf facility and developed significant lower extremity spasticity/contracture. She's undergone manipulation under anesthesia for knee flexion contractures of 120. Postmanipulation she is at [address] Costello is currently requesting chemodenervation botulinum toxin A to the knee flexors. Patient reports pain in the lower extremities primarily the knees bilaterally. She has an epidural in place which is being adjusted by anesthesia for better pain control. She denies any history of neuromuscular disorders and no allergies except for Lortab. She does not feel that baclofen has been helpful with her lower extremity spasticity and pain. Review of Systems ROS Limitations: Clinical Condition (patient with epidural steroid in place but reporting significant pain) Eyes: DENIES: Diplopia Respiratory: DENIES: Shortness of breath Cardiovascular: DENIES: Chest pain Gastrointestinal: DENIES: Abdominal pain Musculoskeletal: COMPLAINS OF: Joint pain (bilateral knees and hips), Stiffness Neurologic: COMPLAINS OF: Localized weakness Past Family Social History Allergies: Coded Allergies: Lortab (Unverified Allergy, Mild, patient states no allergy, 11/21/16) Past Medical History Multiple sclerosis Anxiety Left anterior collins wound Past Surgical History None noted except for knee manipulation under anesthesia Current Medications Current Medications Medications (Trade) Dose Ordered Sig/Raffi Route Start Time Stop Time Status Last Admin (Lr 1000 ml Inj) 1,000 ml @ 30 mls/hr Q24H IV 11/21/16 09:00 11/22/16 09:08 (Vitamin C) 500 mg BID PO 11/21/16 21:00 11/22/16 08:20 (Lioresal) 10 mg TID PO 11/21/16 13:00 11/22/16 08:20 (Dulcolax Supp) 10 mg DAILY PRN RECTAL 11/21/16 11:00 (Santyl Oint) 1 applic DAILY TOP 11/22/16 09:00 (Colace) 100 mg BID PO 11/21/16 21:00 11/22/16 08:20 (Cymbalta Dr) 60 mg DAILY PO 11/22/16 09:00 11/22/16 08:21 (Ferrous Sulfate) 325 mg DAILY PO 11/22/16 09:00 11/22/16 08:20 ([place] 10-325 Mg) 1 tab Q6H PRN PO 11/21/16 11:00 (Milk Of Magnesia Liq) 30 ml DAILY PRN PO 11/21/16 11:00 (Oramorph Sr) 15 mg BID PO 11/21/16 21:00 11/22/16 08:20 (Inderal) 60 mg DAILY PO 11/22/16 09:00 11/22/16 08:20 Zinc Sulfate 220 mg 220 mg DAILY PO 11/22/16 09:00 (Lr 1000 ml Inj) 1,000 ml @ 80 mls/hr [id number] IV 11/21/16 10:52 11/21/16 22:51 (NS Flush) 2 ml UNSCH PRN IVF 11/21/16 11:00 (NS Flush) 2 ml BID IVF 11/21/16 21:00 11/22/16 09:08 (Tylenol) 650 mg Q6H PRN PO 11/21/16 11:00 (Theragran M Tab) 1 tab BID PO 11/22/16 21:00 01/21/17 20:59 (Zofran Inj) 4 mg Q6H PRN IVP 11/21/16 11:00 (Restoril) 15 mg HS PRN PO 11/21/16 11:00 (Narcan Inj) 0.4 mg UNSCH PRN IV 11/21/16 11:00 (Benadryl Inj) 25 mg Q6H PRN IV 11/21/16 11:00 (Heather-Colace) 2 tab HS PO 11/21/16 21:00 (Botox Inj) 200 units UNSCH .XX 11/22/16 11:00 Family History Mother with multiple sclerosis Social History Prior to previous hospital admission patient ambulated with a walker and lived in [place], [place] Exam I&O / VS 11/21/16 11/21/16 11/22/16 15:00 23:00 07:00 Intake Total 600 ml 956 ml 566 ml Output Total 0 ml Balance 600 ml 956 ml 566 ml Intake Oral 0 ml 120 ml IV Total 400 ml 956 ml 446 ml Other 200 ml Output Urine Total 0 ml Estimated Blood Loss 0 ml Other 0 ml # Voids 1 # Bowel Movements 0 Vital Signs Date Time Temp Pulse Resp B/P Pulse Ox O2 Delivery O2 Flow Rate FiO2 11/22/16 12:00 96.4 80 14 88/54 100 11/22/16 09:56 99 Nasal Cannula 2.00 11/22/16 08:00 98.3 84 14 120/69 100 11/22/16 04:00 99.7 122 16 135/71 100 11/22/16 00:00 99.8 122 16 127/72 100 11/21/16 20:00 98.2 96 17 149/88 100 11/21/16 19:47 3.00 General: Moderate distress (patient reporting significant knee pain) Respiratory: Lungs CTA, Non-labored respirations, BS equal Gastrointestinal: Positive Bowel Sounds, Non-Distended Cardiovascular: Normal rate, Regular Rhythm Skin: Wound(s) (left anterior collins wound with dressing in place) Musculoskeletal: Swelling (none) Psychiatric: Cooperative ( in the lower extremities) Orientation: oriented to Self, oriented to Place Neurologic: Speech (intelligible) Motor: Right Upper Extremity (4/5 with ataxia), Left Upper Extremity (4/5 with ataxia), Right Lower Extremity (CPM in place and knee flexor tone MAS 34 with prominence of the medial hamstring), Left Lower Extremity (CPM in place and knee flexor tone MAS 34 with prominence of the medial hamstring) Spasticity No increased tone in the upper extremities; hip flexors MAS 34; ankle plantar flexors NAS2 Sensory Intact to light touch DTRs: Abnormal Clonus: Negative Assessment and Plan Diagnosis: (1) Multiple sclerosis (2) Bilateral knee contractures (3) Spastic paraplegia Assessment 1. 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 Anxiety 3. Left anterior collins wound Plan 1. Will proceed with chemodenervation botulinum toxin A to bilateral hamstrings to help facilitate range of motion status post manipulation under anesthesia to bilateral knees 2. Continue with continuous passive motion to bilateral knees 3. Pain management per anesthesia. Currently with epidural steroid. Anticipate patient will need ongoing narcotics likely Duragesic patch 4. Physical therapy to mobilize to sitting once epidural catheter has been removed 5. Anticipate the patient will need ongoing inpatient rehabilitation. We'll follow in conjunction with case management. Thank you for this consult Lety Mccollum MD Nov 22, 2016 17:54
--- NOTE | 2016-11-22 17:59 | HHI.PR ---
Assessment and Plan Diagnosis: (1) Multiple sclerosis (2) Bilateral knee contractures (3) Spastic paraplegia Plan CHEMODENERVATION WITH BOTULINUM TOXIN A TO THE Right and Left Medial Hamstrings Informed consent for the above procedure obtained using the standard form. See worksheet for the changes in medications, intercurring medical illnesses, vital signs, and exam. All were reviewed with no contraindications to the above procedure were noted. The patient was placed in the supine position. Ground electrode was then placed over the right patella and reference electrode was placed over the right medial hamstrings. The area was prepped with alcohol. Needle electrode was inserted and when increased electrical activity was noted with right knee extension, the right medial hamstrings was injected with 100 units of Botulinum Toxin A (25 units in 4 sites). Ground electrode was then placed over the left patella and reference electrode was placed over the left medial hamstrings. The area was prepped with alcohol. Needle electrode was inserted and when increased electrical activity was noted with left knee extension, the leftt medial hamstrings was injected with 100 units of Botulinum Toxin A (25 units in 4 sites). Electromyography was used to determine the proper injection site. Care was taken to aspirate prior to all injections. Muscles injected / Number of units used: Right medial hamstrings/100 units (25 units in 4 sites) Left medial hamstrings/100 units (25 units in 4 sites) Total number of units used: 200 Total number of units discarded: 0 Lot number: [id number] Expiration: May 2019 Lety Mccollum MD Nov 22, 2016 17:59
[2016-11-22] MEDS ORDERED: DOCUSATE SODIUM 100 MG CAP PO SCH (21:00)
[2016-11-22] MEDS: DOCUSATE SODIUM 50 MG/SENNA 8.6 MG TAB PO SCH (21:00)
[2016-11-22] MEDS: MULTIVITAMINS/MINERALS THERAPEUTIC TAB PO SCH (22:04)
[2016-11-22] MEDS ORDERED: fentaNYL 2MCG-BUPIV 0.125% INJ 100 ML EPIDURAL SCH (22:30)
[2016-11-23] VITALS (7 sets, daily range): BP systolic 92–121; BP diastolic 51–72; PULSE 90–100; RESP 15–18; TEMP 96.5–99.8; O2SAT 98–100
[2016-11-23] MEDS: LACTATED RINGER'S 1000 ML INJ 1,000 ML IV SCH ×3 (00:22→21:38)
[2016-11-23] MEDS: SODIUM CHLORIDE 0.9% FLUSH 5 ML FLUSH IVF SCH ×2 (09:00→21:00)
[2016-11-23] MEDS: DOCUSATE SODIUM 100 MG CAP PO SCH ×2 (09:00→21:00)
[2016-11-23] MEDS: ZINC SULFATE 220 MG CAP PO SCH (09:33)
[2016-11-23] MEDS: ASCORBIC ACID 500 MG TAB PO SCH ×2 (09:33→20:16)
[2016-11-23] MEDS: FERROUS SULFATE 325 MG (65 MG ELEMENTAL IRON) TAB PO SCH (09:33)
[2016-11-23] MEDS: MULTIVITAMINS/MINERALS THERAPEUTIC TAB PO SCH ×2 (09:33→20:16)
[2016-11-23] MEDS: PROPRANOLOL HCL 20 MG TAB PO SCH (09:33)
[2016-11-23] MEDS: MORPHINE SULFATE 15 MG CONTROLLED RELEASE TAB PO SCH ×2 (09:34→20:16)
[2016-11-23] MEDS: BACLOFEN 10 MG TAB PO SCH ×3 (09:34→17:39)
[2016-11-23] MEDS: DULoxetine HCl DR 60 MG CAP PO SCH (09:34)
[2016-11-23] MEDS: LACTATED RINGER'S 1000 ML IV SCH (09:36)
[2016-11-23] MEDS: COLLAGENASE OINT 30 GM TUBE TOP SCH (10:12)
--- NOTE | 2016-11-23 10:57 | HHI.PR ---
Subjective Remarks in no acute distress. complaining of pain to the right leg. on Fentanyl drip. low grade fever last night. d/w the RN and no other acute issues over night. Objective Vitals Vital Signs Date Time Temp Pulse Resp B/P Pulse Ox O2 Delivery O2 Flow Rate FiO2 11/23/16 09:35 Nasal Cannula 2.00 21 11/23/16 04:45 98.1 93 18 113/61 99 11/23/16 00:30 98.9 97 18 92/53 100 11/22/16 20:55 100.1 90 18 132/76 98 11/22/16 19:19 3.00 11/22/16 16:00 97.1 90 16 115/70 100 11/22/16 12:00 96.4 80 14 88/54 100 I/O 11/22/16 11/22/16 11/22/16 11/23/16 11/23/16 11/23/16 07:00 15:00 23:00 07:00 15:00 23:00 Intake Total 566 ml 480 ml 948 ml 463 ml Output Total 500 ml Balance 566 ml -20 ml 948 ml 463 ml Intake Oral 120 ml 480 ml 240 ml 240 ml IV Total 446 ml 708 ml 223 ml Output Urine Total 500 ml # Voids 1 1 1 1 # Bowel Movements 0 0 0 Result Diagram: 11/21/1690411/21/16 0905 Imaging Last Impressions Knee X-Ray 11/21/16 1052 Signed Impressions: Service Date/Time: November 16:16 - CONCLUSION: Unremarkable limited examination of the left knee. Tobi Cannon MD Objective Remarks GENERAL: in no apparent distress. CARDIOVASCULAR: Regular rate and regular rhythm without murmurs, gallops, or rubs. RESPIRATORY: Clear to auscultation. Breath sounds equal bilaterally. No wheezes , rales, or rhonchi. GASTROINTESTINAL: Abdomen soft, non-tender, nondistended. Normal, active bowel sounds MUSCULOSKELETAL: Extremities without clubbing, cyanosis, or edema. NEURO: awake and alert Medications and IVs Current Medications Lactated Ringer's 1,000 ml @ 30 mls/hr Q24H IV Last administered on 11/23/16t 09:36; Start 11/21/16 at 09:00 Sodium Chloride (NS 500 ml Inj) 500 ml @ 30 mls/hr [id number] IV ; Start 11/21/16 at 09:00; Stop 11/22/16 at 08:59; Status DC Insulin Human Regular (NovoLIN R INJ) See Protocol Table ... UNSCH X1 PRN SQ SEE PROTOCOL; Start 11/21/16 at 09:00; Stop 11/22/16 at 08:59; Status DC Metoprolol Tartrate (Lopressor) 25 mg UNSCH X1 PRN PO SEE LABEL COMMENTS; Start 11/21/16 at 09:00; Stop 11/22/16 at 08:59; Status DC Midazolam HCl (Versed Inj) 2 mg STK-MED ONCE .ROUTE ; Start 11/21/16 at 10:05; Stop 11/21/16 at 10:06; Status DC Fentanyl Citrate (fentaNYL INJ) 250 mcg STK-MED ONCE .ROUTE ; Start 11/21/16 at 10:06; Stop 11/21/16 at 10:07; Status DC Midazolam HCl (Versed Inj) 2 mg STK-MED ONCE IVS Last administered on 11/21/16 10:05; Start 11/21/16 at 10:05; Stop 11/21/16 at 10:10; Status DC Sugammadex Sodium (Bridion Inj) 200 mg STK-MED ONCE IV PUSH ; Start 11/21/16 at 10:23; Stop 11/21/16 at 10:24; Status DC Ascorbic Acid (Vitamin C) 500 mg BID PO Last administered on 11/23/16 09:33; Start 11/21/16 at 21:00 Baclofen (Lioresal) 10 mg TID PO Last administered on 11/23/16 09:34; Start 11/21/16 at 13:00 Bisacodyl (Dulcolax Supp) 10 mg DAILY PRN RECTAL CONSTIPATION; Start 11/21/16 at 11:00 Collagenase (Santyl Oint) 1 applic DAILY TOP ; Start 11/22/16 at 09:00 Docusate Sodium (Colace) 100 mg BID PO Last administered on 11/22/16 08:20; Start 11/21/16 at 21:00 Duloxetine HCl (Cymbalta Dr) 60 mg DAILY PO Last administered on 11/23/16 09:34 ; Start 11/22/16 at 09:00 Ferrous Sulfate (Ferrous Sulfate) 325 mg DAILY PO Last administered on 09:33; Start 11/22/16 at 09:00 Acetaminophen/ Hydrocodone Bitart ([place] 10-325 Mg) 1 tab Q6H PRN PO PAIN 1-10 ; Start 11/21/16 at 11:00 Magnesium Hydroxide (Milk Of Magnesau Liq) 30 ml DAILY PRN PO INDIGESTION OR UPSET STOMACH; Start 11/21/16 at 11:00 Morphine Sulfate (Oramorph Sr) 15 mg BID PO Last administered on 11/23/16 09:34 ; Start 11/21/16 at 21:00 Multivitamins/ Minerals Therapeutic (Theragran M Tab) 1 tab DAILY PO ; Start 11/22/16 at 09:00; Status UNV Propranolol HCl (Inderal) 60 mg DAILY PO Last administered on 11/23/16 09:33; Start 11/22/16 at 09:00 Zinc Sulfate (Zinc Sulfate) 220 mg DAILY PO Last administered on 11/23/16 09:33 ; Start 11/22/16 at 09:00 Non-Formulary Medication 1 injection MONTHLY IM ; Start 11/21/16 at 11:00; Status UNV Non-Formulary Medication 30 mcg 30 mcg DIRECTED IM Multiple sclerosis; Start 11/21/16 at 11:00; Stop 11/21/16 at 20:37; Status DC Lactated Ringer's (Lr 1000 ml Inj) 1,000 ml @ 80 mls/hr [id number] IV Last administered on 11/21/16 22:51; Start 11/21/16 at 10:52 IV Flush (NS Flush) 2 ml UNSCH PRN IVF FLUSH AFTER USING IV ACCESS; Start at 11:00 IV Flush (NS Flush) 2 ml BID IVF Last administered on 11/22/16 09:08; Start 11/21/16 at 21:00 Miscellaneous Information (Post-op Orders (for Pharmacy)) STAT ONCE XX ; Start 11/21/16 at 11:00; Stop 11/21/16 at 11:30; Status DC Acetaminophen (Tylenol) 650 mg Q6H PRN PO temp over 101; Start 11/21/16 at 11:00 Multivitamins/ Minerals Therapeutic (Theragran M Tab) 1 tab BID PO Last administered on 11/23/16 09:33; Start 11/22/16 at 21:00; Stop 01/21/17 at 20:59 Ondansetron HCl (Zofran Inj) 4 mg Q6H PRN IVP NAUSEA OR VOMITING; Start at 11:00 Docusate Sodium (Colace) 100 mg BID PO ; Start 11/22/16 at 21:00; Status UNV Temazepam (Restoril) 15 mg HS PRN PO SLEEP; Start 11/21/16 at 11:00 Naloxone HCl (Narcan Inj) 0.4 mg UNSCH PRN IV RESPIRATORY RATE LESS THAN 10; Start 11/21/16 at 11:00 Diphenhydramine HCl (Benadryl Inj) 25 mg Q6H PRN IV ITCHING; Start 11/21/16 at 11:00 Hydromorphone HCl 1 mg 1 mg STK-MED ONCE .ROUTE Last administered on 11/21/16 11:23; Start 11/21/16 at 11:23; Stop 11/21/16 at 11:24; Status DC Fentanyl/ Bupivacaine HCl (fentaNYL 2MCG-BUPIV 0.125% INJ) 100 ml @ As Directed STK-MED ONCE .ROUTE ; Start 11/21/16 at 11:26; Stop 11/21/16 at 11:27; Status DC Morphine Sulfate (*morphine INJ PERIprocedure ONLY) 8 mg STK-MED ONCE .ROUTE Last administered on 11/21/16 11:32; Start 11/21/16 at 11:32; Stop 11/21/16 at 11: 33; Status DC Miscellaneous Information ALL NURSING DEPARTME... UNSCH PRN XX SEE LABEL COMMENTS; Start 11/21/16 at 11:30; Stop 11/22/16 at 11:29; Status DC Fentanyl Citrate (fentaNYL INJ) 100 mcg STK-MED ONCE .ROUTE ; Start 11/21/16 at 11:39; Stop 11/21/16 at 11:40; Status DC Senna/Docusate Sodium (Heather-Colace) 2 tab HS PO ; Start 11/21/16 at 21:00 Miscellaneous Information No systemic narcotics to be given except... UNSCH PRN XX SEE DOSE INSTRUCTIONS; Start 11/21/16 at 12:45; Stop 11/22/16 at 12:44; Status DC Miscellaneous Information DO NOT ADMINISTER ANY ANTICOAGUL... UNSCH PRN XX SEE DOSE INSTRUCTIONS; Start 11/21/16 at 12:45; Stop 11/22/16 at 12:44; Status DC Ephedrine Sulfate (ePHEDrine/NS 25 MG/5 ML SYR) 10 mg UNSCH PRN IV SEE LABEL COMMENTS; Start 11/21/16 at 12:45; Stop 11/22/16 at 12:44; Status DC Non-Formulary Medication 30 mcg 30 mcg DIRECTED IM Multiple sclerosis; Start 11/21/16 at 20:45; Status UNV Fentanyl/ Bupivacaine HCl (fentaNYL 2MCG-BUPIV 0.125% INJ) 100 ml @ As Directed STK-MED ONCE .ROUTE ; Start 11/21/16 at 21:01; Stop 11/21/16 at 21:02; Status DC Onabotulinumtoxina (Botox Inj) 200 units UNSCH .XX ; Start 11/22/16 at 11:00 Hydromorphone HCl (Dilaudid Pf Inj) 0.5 mg NOW ONCE IV PUSH Last administered on 11/22/16t 09:01; Start 11/22/16 at 09:00; Stop 11/22/16 at 09:01; Status DC Morphine Sulfate (Duramorph Pf 0.5 Mg/ml Inj) 5 mg STK-MED ONCE .ROUTE ; Start 11/22/16 at 08:30; Stop 11/22/16 at 08:56; Status DC Fentanyl Citrate (fentaNYL INJ) 100 mcg STK-MED ONCE .ROUTE ; Start 11/22/16 at 08:31; Stop 11/22/16 at 08:56; Status DC Propofol (Diprivan 200 Mg/20 ml Inj) 200 mg STK-MED ONCE IV ; Start 11/21/16 at 12:00; Stop 11/22/16 at 10:45; Status DC Ondansetron HCl 4 mg 4 mg STK-MED ONCE IV PUSH ; Start 11/21/16 at 12:00; Stop at 10:45; Status DC Fentanyl/ Bupivacaine HCl 100 ml @ As Directed STK-MED ONCE .ROUTE ; Start 11/22 at 12:35; Stop 11/22/16 at 12:36; Status DC Fentanyl/ Bupivacaine HCl (fentaNYL 2MCG-BUPIV 0.125% INJ) 100 ml @ 0 mls/hr Q0M EPIDURAL ; Start 11/22/16 at 22:30; Stop 11/23/16 at 05:59; Status DC A/P Assessment and Plan - knee contractures- s/p manipulation under anesthesia s/p botox injection to the right and left medial hamstrings continue pain control and rehab efforts- management per ortho. rehab medicine following. -low grade fever; missy monitor temps for now -multiple sclerosis- resumed home meds- neurology following. -DVT prophylaxis; SCD's -per ortho. Chase Rosales MD Nov 23, 2016 10:57
[2016-11-23] MEDS ORDERED: fentaNYL 2MCG-BUPIV 0.125% INJ 100 ML ONE (17:46)
[2016-11-23] MEDS: DOCUSATE SODIUM 50 MG/SENNA 8.6 MG TAB PO SCH (21:00)
[2016-11-24] VITALS (7 sets, daily range): BP systolic 94–128; BP diastolic 58–72; PULSE 76–88; RESP 16–20; TEMP 96.7–98.7; O2SAT 94–100
[2016-11-24] MEDS ORDERED: fentaNYL 2MCG-BUPIV 0.125% INJ 100 ML ONE ×2 (07:36→18:20)
[2016-11-24] MEDS: COLLAGENASE OINT 30 GM TUBE TOP SCH (09:00)
[2016-11-24] MEDS: DULoxetine HCl DR 60 MG CAP PO SCH (10:30)
[2016-11-24] MEDS: FERROUS SULFATE 325 MG (65 MG ELEMENTAL IRON) TAB PO SCH (10:30)
[2016-11-24] MEDS: MULTIVITAMINS/MINERALS THERAPEUTIC TAB PO SCH ×2 (10:30→20:16)
[2016-11-24] MEDS: BACLOFEN 10 MG TAB PO SCH ×3 (10:31→18:27)
[2016-11-24] MEDS: MORPHINE SULFATE 15 MG CONTROLLED RELEASE TAB PO SCH ×2 (10:31→20:16)
[2016-11-24] MEDS: ASCORBIC ACID 500 MG TAB PO SCH ×2 (10:31→20:16)
[2016-11-24] MEDS: LACTATED RINGER'S 1000 ML IV SCH (10:31)
[2016-11-24] MEDS: SODIUM CHLORIDE 0.9% FLUSH 5 ML FLUSH IVF SCH ×2 (10:31→20:16)
[2016-11-24] MEDS: DOCUSATE SODIUM 100 MG CAP PO SCH ×2 (10:31→20:16)
[2016-11-24] MEDS: PROPRANOLOL HCL 20 MG TAB PO SCH (10:31)
[2016-11-24] MEDS: ZINC SULFATE 220 MG CAP PO SCH (10:32)
--- NOTE | 2016-11-24 11:58 | HHI.PR ---
Subjective Remarks pain is fairly controlled on Fentanyl drip. no other complaints. d/w the RN and no acute issues over night. Objective Vitals Vital Signs Date Time Temp Pulse Resp B/P Pulse Ox O2 Delivery O2 Flow Rate FiO2 11/24/16 09:15 94 Nasal Cannula 2.00 11/24/16 08:00 96.8 88 18 95/63 100 11/24/16 04:00 96.7 88 16 113/64 97 11/24/16 00:05 98.7 85 16 128/72 100 11/23/16 20:43 98 Nasal Cannula 2.00 11/23/16 20:00 99.8 95 16 121/72 100 11/23/16 16:00 98.5 91 16 106/58 100 11/23/16 12:25 98.6 90 15 96/51 100 I/O 11/23/16 11/23/16 11/23/16 11/24/16 11/24/16 11/24/16 07:00 15:00 23:00 07:00 15:00 23:00 Intake Total 463 ml 480 ml 120 ml 240 ml Balance 463 ml 480 ml 120 ml 240 ml Intake Oral 240 ml 480 ml 120 ml 240 ml IV Total 223 ml # Voids 1 1 1 1 # Bowel Movements 0 1 Result Diagram: 11/21/16 0905 11/21/16 0905 Imaging Last Impressions Knee X-Ray 11/21/16 1052 Signed Impressions: Service Date/Time: November 16:16 - CONCLUSION: Unremarkable limited examination of the left knee. Tobi Cannon MD Objective Remarks GENERAL: in no apparent distress. CARDIOVASCULAR: Regular rate and regular rhythm without murmurs, gallops, or rubs. RESPIRATORY: Clear to auscultation. Breath sounds equal bilaterally. No wheezes , rales, or rhonchi. GASTROINTESTINAL: Abdomen soft, non-tender, nondistended. Normal, active bowel sounds MUSCULOSKELETAL: Extremities without clubbing, cyanosis, or edema. NEURO: awake and alert Medications and IVs Current Medications Lactated Ringer's 1,000 ml @ 30 mls/hr Q24H IV Last administered on 11/24/16t 10:31; Start 11/21/16 at 09:00 Sodium Chloride (NS 500 ml Inj) 500 ml @ 30 mls/hr [id number] IV ; Start 11/21/16 at 09:00; Stop 11/22/16 at 08:59; Status DC Insulin Human Regular (NovoLIN R INJ) See Protocol Table ... UNSCH X1 PRN SQ SEE PROTOCOL; Start 11/21/16 at 09:00; Stop 11/22/16 at 08:59; Status DC Metoprolol Tartrate (Lopressor) 25 mg UNSCH X1 PRN PO SEE LABEL COMMENTS; Start 11/21/16 at 09:00; Stop 11/22/16 at 08:59; Status DC Midazolam HCl (Versed Inj) 2 mg STK-MED ONCE .ROUTE ; Start 11/21/16 at 10:05; Stop 11/21/16 at 10:06; Status DC Fentanyl Citrate (fentaNYL INJ) 250 mcg STK-MED ONCE .ROUTE ; Start 11/21/16 at 10:06; Stop 11/21/16 at 10:07; Status DC Midazolam HCl (Versed Inj) 2 mg STK-MED ONCE IVS Last administered on 11/21/16 10:05; Start 11/21/16 at 10:05; Stop 11/21/16 at 10:10; Status DC Sugammadex Sodium (Bridion Inj) 200 mg STK-MED ONCE IV PUSH ; Start 11/21/16 at 10:23; Stop 11/21/16 at 10:24; Status DC Ascorbic Acid (Vitamin C) 500 mg BID PO Last administered on 11/24/16 10:31; Start 11/21/16 at 21:00 Baclofen (Lioresal) 10 mg TID PO Last administered on 11/24/16 10:31; Start 11/21/16 at 13:00 Bisacodyl (Dulcolax Supp) 10 mg DAILY PRN RECTAL CONSTIPATION; Start 11/21/16 at 11:00 Collagenase (Santyl Oint) 1 applic DAILY TOP ; Start 11/22/16 at 09:00 Docusate Sodium (Colace) 100 mg BID PO Last administered on 11/24/16 10:31; Start 11/21/16 at 21:00 Duloxetine HCl (Cymbalta Dr) 60 mg DAILY PO Last administered on 11/24/16 10:30 ; Start 11/22/16 at 09:00 Ferrous Sulfate (Ferrous Sulfate) 325 mg DAILY PO Last administered on 10:30; Start 11/22/16 at 09:00 Acetaminophen/ Hydrocodone Bitart ([place] 10-325 Mg) 1 tab Q6H PRN PO PAIN 1-10 ; Start 11/21/16 at 11:00 Magnesium Hydroxide (Milk Of [place] Liq) 30 ml DAILY PRN PO INDIGESTION OR UPSET STOMACH; Start 11/21/16 at 11:00 Morphine Sulfate (Oramorph Sr) 15 mg BID PO Last administered on 11/24/16 10:31 ; Start 11/21/16 at 21:00 Multivitamins/ Minerals Therapeutic (Theragran M Tab) 1 tab DAILY PO ; Start 11/22/16 at 09:00; Status UNV Propranolol HCl (Inderal) 60 mg DAILY PO Last administered on 11/24/16 10:31; Start 11/22/16 at 09:00 Zinc Sulfate (Zinc Sulfate) 220 mg DAILY PO Last administered on 11/23/16 09:33 ; Start 11/22/16 at 09:00 Non-Formulary Medication 1 injection MONTHLY IM ; Start 11/21/16 at 11:00; Status UNV Non-Formulary Medication 30 mcg 30 mcg DIRECTED IM Multiple sclerosis; Start 11/21/16 at 11:00; Stop 11/21/16 at 20:37; Status DC Lactated Ringer's (Lr 1000 ml Inj) 1,000 ml @ 80 mls/hr [id number] IV Last administered on 11/21/16 22:51; Start 11/21/16 at 10:52 IV Flush (NS Flush) 2 ml UNSCH PRN IVF FLUSH AFTER USING IV ACCESS; Start at 11:00 IV Flush (NS Flush) 2 ml BID IVF Last administered on 11/24/16 10:31; Start 11/21/16 at 21:00 Miscellaneous Information (Post-op Orders (for Pharmacy)) STAT ONCE XX ; Start 11/21/16 at 11:00; Stop 11/21/16 at 11:30; Status DC Acetaminophen (Tylenol) 650 mg Q6H PRN PO temp over 101; Start 11/21/16 at 11:00 Multivitamins/ Minerals Therapeutic (Theragran M Tab) 1 tab BID PO Last administered on 11/24/16 10:30; Start 11/22/16 at 21:00; Stop 01/21/17 at 20:59 Ondansetron HCl (Zofran Inj) 4 mg Q6H PRN IVP NAUSEA OR VOMITING; Start at 11:00 Docusate Sodium (Colace) 100 mg BID PO ; Start 11/22/16 at 21:00; Status UNV Temazepam (Restoril) 15 mg HS PRN PO SLEEP; Start 11/21/16 at 11:00 Naloxone HCl (Narcan Inj) 0.4 mg UNSCH PRN IV RESPIRATORY RATE LESS THAN 10; Start 11/21/16 at 11:00 Diphenhydramine HCl (Benadryl Inj) 25 mg Q6H PRN IV ITCHING; Start 11/21/16 at 11:00 Hydromorphone HCl 1 mg 1 mg STK-MED ONCE .ROUTE Last administered on 11/21/16 11:23; Start 11/21/16 at 11:23; Stop 11/21/16 at 11:24; Status DC Fentanyl/ Bupivacaine HCl (fentaNYL 2MCG-BUPIV 0.125% INJ) 100 ml @ As Directed STK-MED ONCE .ROUTE ; Start 11/21/16 at 11:26; Stop 11/21/16 at 11:27; Status DC Morphine Sulfate (*morphine INJ PERIprocedure ONLY) 8 mg STK-MED ONCE .ROUTE Last administered on 11/21/16 11:32; Start 11/21/16 at 11:32; Stop 11/21/16 at 11: 33; Status DC Miscellaneous Information ALL NURSING DEPARTME... UNSCH PRN XX SEE LABEL COMMENTS; Start 11/21/16 at 11:30; Stop 11/22/16 at 11:29; Status DC Fentanyl Citrate (fentaNYL INJ) 100 mcg STK-MED ONCE .ROUTE ; Start 11/21/16 at 11:39; Stop 11/21/16 at 11:40; Status DC Senna/Docusate Sodium (Heather-Colace) 2 tab HS PO ; Start 11/21/16 at 21:00 Miscellaneous Information No systemic narcotics to be given except... UNSCH PRN XX SEE DOSE INSTRUCTIONS; Start 11/21/16 at 12:45; Stop 11/22/16 at 12:44; Status DC Miscellaneous Information DO NOT ADMINISTER ANY ANTICOAGUL... UNSCH PRN XX SEE DOSE INSTRUCTIONS; Start 11/21/16 at 12:45; Stop 11/22/16 at 12:44; Status DC Ephedrine Sulfate (ePHEDrine/NS 25 MG/5 ML SYR) 10 mg UNSCH PRN IV SEE LABEL COMMENTS; Start 11/21/16 at 12:45; Stop 11/22/16 at 12:44; Status DC Non-Formulary Medication 30 mcg 30 mcg DIRECTED IM Multiple sclerosis; Start 11/21/16 at 20:45; Status UNV Fentanyl/ Bupivacaine HCl (fentaNYL 2MCG-BUPIV 0.125% INJ) 100 ml @ As Directed STK-MED ONCE .ROUTE ; Start 11/21/16 at 21:01; Stop 11/21/16 at 21:02; Status DC Onabotulinumtoxina (Botox Inj) 200 units UNSCH .XX ; Start 11/22/16 at 11:00 Hydromorphone HCl (Dilaudid Pf Inj) 0.5 mg NOW ONCE IV PUSH Last administered on 11/22/16t 09:01; Start 11/22/16 at 09:00; Stop 11/22/16 at 09:01; Status DC Morphine Sulfate (Duramorph Pf 0.5 Mg/ml Inj) 5 mg STK-MED ONCE .ROUTE ; Start 11/22/16 at 08:30; Stop 11/22/16 at 08:56; Status DC Fentanyl Citrate (fentaNYL INJ) 100 mcg STK-MED ONCE .ROUTE ; Start 11/22/16 at 08:31; Stop 11/22/16 at 08:56; Status DC Propofol (Diprivan 200 Mg/20 ml Inj) 200 mg STK-MED ONCE IV ; Start 11/21/16 at 12:00; Stop 11/22/16 at 10:45; Status DC Ondansetron HCl 4 mg 4 mg STK-MED ONCE IV PUSH ; Start 11/21/16 at 12:00; Stop at 10:45; Status DC Fentanyl/ Bupivacaine HCl 100 ml @ As Directed STK-MED ONCE .ROUTE ; Start 11/22 at 12:35; Stop 11/22/16 at 12:36; Status DC Fentanyl/ Bupivacaine HCl 100 ml @ 0 mls/hr Q0M EPIDURAL ; Start 11/22/16 at 22: 30; Stop 11/23/16 at 05:59; Status DC Fentanyl/ Bupivacaine HCl 100 ml @ As Directed STK-MED ONCE .ROUTE ; Start 11/23 at 17:46; Stop 11/23/16 at 17:47; Status DC Fentanyl/ Bupivacaine HCl (fentaNYL 2MCG-BUPIV 0.125% INJ) 100 ml @ As Directed STK-MED ONCE .ROUTE ; Start 11/24/16 at 07:36; Stop 11/24/16 at 07:37; Status DC A/P Assessment and Plan A/P - knee contractures- s/p manipulation under anesthesia s/p botox injection to the right and left medial hamstrings continue pain control and rehab efforts- management per ortho. rehab medicine following. -low grade fever; temps better- missy monitor temps for now -multiple sclerosis- resumed home meds- neurology following. -DVT prophylaxis; SCD's -per ortho. Chase Rosales MD Nov 24, 2016 11:58
[2016-11-24] MEDS: LACTATED RINGER'S 1000 ML INJ 1,000 ML IV SCH ×2 (13:52→22:51)
[2016-11-24] MEDS: DOCUSATE SODIUM 50 MG/SENNA 8.6 MG TAB PO SCH (20:17)
--- NOTE | 2016-11-24 21:10 | PD.ORT.PN ---
Subjective Subjective Remarks According to RN patient is less painful today and being weaned off epidural. Objective Vitals Vital Signs Date Time Temp Pulse Resp B/P Pulse Ox O2 Delivery O2 Flow Rate FiO2 11/24/16 20:25 Nasal Cannula 2.00 Humidified 11/24/16 16:00 97.7 77 18 100/61 99 11/24/16 12:00 98.0 76 18 94/58 99 11/24/16 09:15 94 Nasal Cannula 2.00 11/24/16 08:00 96.8 88 18 95/63 100 11/24/16 04:00 96.7 88 16 113/64 97 11/24/16 00:05 98.7 85 16 128/72 100 I/O 11/23/16 11/23/16 11/23/16 11/24/16 11/24/16 11/24/16 07:00 15:00 23:00 07:00 15:00 23:00 Intake Total 463 ml 480 ml 120 ml 240 ml Balance 463 ml 480 ml 120 ml 240 ml Intake Oral 240 ml 480 ml 120 ml 240 ml IV Total 223 ml # Voids 1 1 1 1 1 # Bowel Movements 0 1 Result Diagram: 11/21/16 0905 11/21/16 0905 Imaging Last 24 hours Impressions Knee X-Ray 11/21/16 1052 Signed Impressions: Service Date/Time: November 16:16 - CONCLUSION: Unremarkable limited examination of the left knee. Tobi Cannon MD Objective Remarks RN states patient is on CPM Assessment & Plan Ortho Post Op Day #: 3 Problem List: Assessment and Plan Rehab per Dr Hernandes. Donnell Colon MD Nov 24, 2016 21:10
[2016-11-24] MEDS: ACETAMINOPHEN/HYDROcodone 325 MG/10 MG TAB PO PRN (21:22)
[2016-11-25] VITALS: BP 105/63; PULSE 88; RESP 22; TEMP 98.4; O2SAT 96
[2016-11-25] MEDS: ACETAMINOPHEN/HYDROcodone 325 MG/10 MG TAB PO PRN ×3 (03:41→17:44)
[2016-11-25 04:00] VITALS: BP 142/75; PULSE 99; RESP 24; TEMP 98; O2SAT 94
[2016-11-25] MEDS ORDERED: fentaNYL 50 MCG/HR PATCH TD SCH (07:00)
[2016-11-25 08:00] VITALS: BP 125/73; PULSE 88; RESP 18; TEMP 97.3; O2SAT 97
[2016-11-25] MEDS: PROPRANOLOL HCL 20 MG TAB PO SCH (08:41)
[2016-11-25] MEDS: MULTIVITAMINS/MINERALS THERAPEUTIC TAB PO SCH ×2 (08:42→21:22)
[2016-11-25] MEDS: FERROUS SULFATE 325 MG (65 MG ELEMENTAL IRON) TAB PO SCH (08:42)
[2016-11-25] MEDS: ASCORBIC ACID 500 MG TAB PO SCH ×2 (08:42→21:22)
[2016-11-25] MEDS: BACLOFEN 10 MG TAB PO SCH ×3 (08:42→17:55)
[2016-11-25] MEDS: MORPHINE SULFATE 15 MG CONTROLLED RELEASE TAB PO SCH ×2 (08:42→21:22)
[2016-11-25] MEDS: DULoxetine HCl DR 60 MG CAP PO SCH (08:42)
[2016-11-25] MEDS: ZINC SULFATE 220 MG CAP PO SCH (08:42)
--- NOTE | 2016-11-25 08:46 | HHI.PR ---
Objective Vital Signs Date Time Temp Pulse Resp B/P Pulse Ox O2 Delivery O2 Flow Rate FiO2 11/25/16 08:00 97.3 88 18 125/73 97 11/25/16 04:00 98.0 99 24 142/75 94 11/25/16 00:00 98.4 88 22 105/63 96 11/24/16 20:25 Nasal Cannula 2.00 Humidified 11/24/16 20:00 97.3 82 20 110/70 98 11/24/16 16:00 97.7 77 18 100/61 99 11/24/16 12:00 98.0 76 18 94/58 99 11/24/16 09:15 94 Nasal Cannula 2.00 I/O 11/24/16 11/24/16 11/24/16 11/25/16 11/25/16 11/25/16 07:00 15:00 23:00 07:00 15:00 23:00 Intake Total 240 ml 220 ml 160 ml Balance 240 ml 220 ml 160 ml Intake Oral 240 ml 220 ml 160 ml # Voids 1 1 2 3 # Bowel Movements 1 0 0 Result Diagram: 11/21/1690411/21/16904 Objective Remarks pain maybe a little less r knee up in chest i can get to 90 degrees still bad ctx Assessment and Plan Assessment and Plan imp ok to rehab by wi Kt Costello MD Nov 25, 2016 08:46
[2016-11-25] MEDS: DOCUSATE SODIUM 100 MG CAP PO SCH ×2 (08:47→21:00)
[2016-11-25] MEDS: SODIUM CHLORIDE 0.9% FLUSH 5 ML FLUSH IVF SCH ×2 (08:47→21:22)
[2016-11-25] MEDS: COLLAGENASE OINT 30 GM TUBE TOP SCH (08:48)
[2016-11-25] MEDS: LACTATED RINGER'S 1000 ML IV SCH (09:00)
--- NOTE | 2016-11-25 10:13 | PD.ORT.PN ---
Subjective Subjective Remarks pt comfortable as long as she is not moving. Objective Vitals Vital Signs Date Time Temp Pulse Resp B/P Pulse Ox O2 Delivery O2 Flow Rate FiO2 11/25/16 08:00 97.3 88 18 125/73 97 11/25/16 04:00 98.0 99 24 142/75 94 11/25/16 00:00 98.4 88 22 105/63 96 11/24/16 20:25 Nasal Cannula 2.00 Humidified 11/24/16 20:00 97.3 82 20 110/70 98 11/24/16 16:00 97.7 77 18 100/61 99 11/24/16 12:00 98.0 76 18 94/58 99 I/O 11/24/16 11/24/16 11/24/16 11/25/16 11/25/16 11/25/16 07:00 15:00 23:00 07:00 15:00 23:00 Intake Total 240 ml 220 ml 160 ml Balance 240 ml 220 ml 160 ml Intake Oral 240 ml 220 ml 160 ml # Voids 1 1 2 3 # Bowel Movements 1 0 0 Result Diagram: 11/21/16 0905 11/21/16 0905 Imaging Last 24 hours Impressions Knee X-Ray 11/21/16 1052 Signed Impressions: Service Date/Time: November 16:16 - CONCLUSION: Unremarkable limited examination of the left knee. Tobi Cannon MD Objective Remarks Still contracted. On CPM. Assessment & Plan Ortho Post Op Day #: 4 Problem List: Assessment and Plan Rehab per Dr Hernandes. Donnell Colon MD Nov 25, 2016 10:13
[2016-11-25 11:00] LABS: CKMB 1.5 NG/ML (0.5-3.6)
--- NOTE | 2016-11-25 11:28 | HHI.PR ---
Subjective Remarks in no acute distress. knee pain is fairly controlled. has mild headache. Objective Vitals Vital Signs Date Time Temp Pulse Resp B/P Pulse Ox O2 Delivery O2 Flow Rate FiO2 11/25/16 08:00 97.3 88 18 125/73 97 11/25/16 04:00 98.0 99 24 142/75 94 11/25/16 00:00 98.4 88 22 105/63 96 11/24/16 20:25 Nasal Cannula 2.00 Humidified 11/24/16 20:00 97.3 82 20 110/70 98 11/24/16 16:00 97.7 77 18 100/61 99 11/24/16 12:00 98.0 76 18 94/58 99 I/O 11/24/16 11/24/16 11/24/16 11/25/16 11/25/16 11/25/16 07:00 15:00 23:00 07:00 15:00 23:00 Intake Total 240 ml 220 ml 160 ml Balance 240 ml 220 ml 160 ml Intake Oral 240 ml 220 ml 160 ml # Voids 1 1 2 3 # Bowel Movements 1 0 0 Result Diagram: 11/21/1690411/21/16904 Imaging Last Impressions Knee X-Ray 11/21/16 1052 Signed Impressions: Service Date/Time: November 16:16 - CONCLUSION: Unremarkable limited examination of the left knee. Tobi Cnanon MD Objective Remarks GENERAL: in no apparent distress. CARDIOVASCULAR: Regular rate and regular rhythm without murmurs, gallops, or rubs. RESPIRATORY: Clear to auscultation. Breath sounds equal bilaterally. No wheezes , rales, or rhonchi. GASTROINTESTINAL: Abdomen soft, non-tender, nondistended. Normal, active bowel sounds MUSCULOSKELETAL: Extremities without clubbing, cyanosis, or edema. NEURO: awake and alert Medications and IVs Current Medications Lactated Ringer's 1,000 ml @ 30 mls/hr Q24H IV Last administered on 11/24/16t 10:31; Start 11/21/16 at 09:00 Sodium Chloride (NS 500 ml Inj) 500 ml @ 30 mls/hr [id number] IV ; Start 11/21/16 at 09:00; Stop 11/22/16 at 08:59; Status DC Insulin Human Regular (NovoLIN R INJ) See Protocol Table ... UNSCH X1 PRN SQ SEE PROTOCOL; Start 11/21/16 at 09:00; Stop 11/22/16 at 08:59; Status DC Metoprolol Tartrate (Lopressor) 25 mg UNSCH X1 PRN PO SEE LABEL COMMENTS; Start 11/21/16 at 09:00; Stop 11/22/16 at 08:59; Status DC Midazolam HCl (Versed Inj) 2 mg STK-MED ONCE .ROUTE ; Start 11/21/16 at 10:05; Stop 11/21/16 at 10:06; Status DC Fentanyl Citrate (fentaNYL INJ) 250 mcg STK-MED ONCE .ROUTE ; Start 11/21/16 at 10:06; Stop 11/21/16 at 10:07; Status DC Midazolam HCl (Versed Inj) 2 mg STK-MED ONCE IVS Last administered on 11/21/16 10:05; Start 11/21/16 at 10:05; Stop 11/21/16 at 10:10; Status DC Sugammadex Sodium (Bridion Inj) 200 mg STK-MED ONCE IV PUSH ; Start 11/21/16 at 10:23; Stop 11/21/16 at 10:24; Status DC Ascorbic Acid (Vitamin C) 500 mg BID PO Last administered on 11/25/16 08:42; Start 11/21/16 at 21:00 Baclofen (Lioresal) 10 mg TID PO Last administered on 11/25/16 08:42; Start 11/21/16 at 13:00 Bisacodyl (Dulcolax Supp) 10 mg DAILY PRN RECTAL CONSTIPATION; Start 11/21/16 at 11:00 Collagenase (Santyl Oint) 1 applic DAILY TOP Last administered on 11/25/16 08: 48; Start 11/22/16 at 09:00 Docusate Sodium (Colace) 100 mg BID PO Last administered on 11/24/16 10:31; Start 11/21/16 at 21:00 Duloxetine HCl (Cymbalta Dr) 60 mg DAILY PO Last administered on 11/25/16 08:42 ; Start 11/22/16 at 09:00 Ferrous Sulfate (Ferrous Sulfate) 325 mg DAILY PO Last administered on 08:42; Start 11/22/16 at 09:00 Acetaminophen/ Hydrocodone Bitart ([place] 10-325 Mg) 1 tab Q6H PRN PO PAIN 1-10 Last administered on 11/25/16 11:13; Start 11/21/16 at 11:00 Magnesium Hydroxide (Milk Of [place] Liq) 30 ml DAILY PRN PO INDIGESTION OR UPSET STOMACH; Start 11/21/16 at 11:00 Morphine Sulfate (Oramorph Sr) 15 mg BID PO Last administered on 11/25/16 08:42 ; Start 11/21/16 at 21:00 Multivitamins/ Minerals Therapeutic (Theragran M Tab) 1 tab DAILY PO ; Start 11/22/16 at 09:00; Status UNV Propranolol HCl (Inderal) 60 mg DAILY PO Last administered on 11/25/16 08:41; Start 11/22/16 at 09:00 Zinc Sulfate (Zinc Sulfate) 220 mg DAILY PO Last administered on 11/25/16 08:42 ; Start 11/22/16 at 09:00 Non-Formulary Medication 1 injection MONTHLY IM ; Start 11/21/16 at 11:00; Status UNV Non-Formulary Medication 30 mcg 30 mcg DIRECTED IM Multiple sclerosis; Start 11/21/16 at 11:00; Stop 11/21/16 at 20:37; Status DC Lactated Ringer's (Lr 1000 ml Inj) 1,000 ml @ 80 mls/hr [id number] IV Last administered on 11/21/16 22:51; Start 11/21/16 at 10:52 IV Flush (NS Flush) 2 ml UNSCH PRN IVF FLUSH AFTER USING IV ACCESS; Start at 11:00 IV Flush (NS Flush) 2 ml BID IVF Last administered on 11/25/16 08:47; Start 11/21/16 at 21:00 Miscellaneous Information (Post-op Orders (for Pharmacy)) STAT ONCE XX ; Start 11/21/16 at 11:00; Stop 11/21/16 at 11:30; Status DC Acetaminophen (Tylenol) 650 mg Q6H PRN PO temp over 101; Start 11/21/16 at 11:00 Multivitamins/ Minerals Therapeutic (Theragran M Tab) 1 tab BID PO Last administered on 11/25/16 08:42; Start 11/22/16 at 21:00; Stop 01/21/17 at 20:59 Ondansetron HCl (Zofran Inj) 4 mg Q6H PRN IVP NAUSEA OR VOMITING; Start at 11:00 Docusate Sodium (Colace) 100 mg BID PO ; Start 11/22/16 at 21:00; Status UNV Temazepam (Restoril) 15 mg HS PRN PO SLEEP; Start 11/21/16 at 11:00 Naloxone HCl (Narcan Inj) 0.4 mg UNSCH PRN IV RESPIRATORY RATE LESS THAN 10; Start 11/21/16 at 11:00 Diphenhydramine HCl (Benadryl Inj) 25 mg Q6H PRN IV ITCHING; Start 11/21/16 at 11:00 Hydromorphone HCl 1 mg 1 mg STK-MED ONCE .ROUTE Last administered on 11/21/16 11:23; Start 11/21/16 at 11:23; Stop 11/21/16 at 11:24; Status DC Fentanyl/ Bupivacaine HCl (fentaNYL 2MCG-BUPIV 0.125% INJ) 100 ml @ As Directed STK-MED ONCE .ROUTE ; Start 11/21/16 at 11:26; Stop 11/21/16 at 11:27; Status DC Morphine Sulfate (*morphine INJ PERIprocedure ONLY) 8 mg STK-MED ONCE .ROUTE Last administered on 11/21/16 11:32; Start 11/21/16 at 11:32; Stop 11/21/16 at 11: 33; Status DC Miscellaneous Information ALL NURSING DEPARTME... UNSCH PRN XX SEE LABEL COMMENTS; Start 11/21/16 at 11:30; Stop 11/22/16 at 11:29; Status DC Fentanyl Citrate (fentaNYL INJ) 100 mcg STK-MED ONCE .ROUTE ; Start 11/21/16 at 11:39; Stop 11/21/16 at 11:40; Status DC Senna/Docusate Sodium (Heather-Colace) 2 tab HS PO ; Start 11/21/16 at 21:00 Miscellaneous Information No systemic narcotics to be given except... UNSCH PRN XX SEE DOSE INSTRUCTIONS; Start 11/21/16 at 12:45; Stop 11/22/16 at 12:44; Status DC Miscellaneous Information DO NOT ADMINISTER ANY ANTICOAGUL... UNSCH PRN XX SEE DOSE INSTRUCTIONS; Start 11/21/16 at 12:45; Stop 11/22/16 at 12:44; Status DC Ephedrine Sulfate (ePHEDrine/NS 25 MG/5 ML SYR) 10 mg UNSCH PRN IV SEE LABEL COMMENTS; Start 11/21/16 at 12:45; Stop 11/22/16 at 12:44; Status DC Non-Formulary Medication 30 mcg 30 mcg DIRECTED IM Multiple sclerosis; Start 11/21/16 at 20:45; Status UNV Fentanyl/ Bupivacaine HCl (fentaNYL 2MCG-BUPIV 0.125% INJ) 100 ml @ As Directed STK-MED ONCE .ROUTE ; Start 11/21/16 at 21:01; Stop 11/21/16 at 21:02; Status DC Onabotulinumtoxina (Botox Inj) 200 units UNSCH .XX ; Start 11/22/16 at 11:00 Hydromorphone HCl (Dilaudid Pf Inj) 0.5 mg NOW ONCE IV PUSH Last administered on 11/22/16t 09:01; Start 11/22/16 at 09:00; Stop 11/22/16 at 09:01; Status DC Morphine Sulfate (Duramorph Pf 0.5 Mg/ml Inj) 5 mg STK-MED ONCE .ROUTE ; Start 11/22/16 at 08:30; Stop 11/22/16 at 08:56; Status DC Fentanyl Citrate (fentaNYL INJ) 100 mcg STK-MED ONCE .ROUTE ; Start 11/22/16 at 08:31; Stop 11/22/16 at 08:56; Status DC Propofol (Diprivan 200 Mg/20 ml Inj) 200 mg STK-MED ONCE IV ; Start 11/21/16 at 12:00; Stop 11/22/16 at 10:45; Status DC Ondansetron HCl 4 mg 4 mg STK-MED ONCE IV PUSH ; Start 11/21/16 at 12:00; Stop at 10:45; Status DC Fentanyl/ Bupivacaine HCl 100 ml @ As Directed STK-MED ONCE .ROUTE ; Start 11/22 at 12:35; Stop 11/22/16 at 12:36; Status DC Fentanyl/ Bupivacaine HCl 100 ml @ 0 mls/hr Q0M EPIDURAL ; Start 11/22/16 at 22: 30; Stop 11/23/16 at 05:59; Status DC Fentanyl/ Bupivacaine HCl 100 ml @ As Directed STK-MED ONCE .ROUTE ; Start 11/23 at 17:46; Stop 11/23/16 at 17:47; Status DC Fentanyl/ Bupivacaine HCl (fentaNYL 2MCG-BUPIV 0.125% INJ) 100 ml @ As Directed STK-MED ONCE .ROUTE ; Start 11/24/16 at 07:36; Stop 11/24/16 at 07:37; Status DC Fentanyl 1 patch 1 patch Q3D TD Last administered on 11/25/16t 05:52; Start 11/25 at 07:00 Fentanyl/ Bupivacaine HCl (fentaNYL 2MCG-BUPIV 0.125% INJ) 100 ml @ As Directed STK-MED ONCE .ROUTE ; Start 11/24/16 at 18:20; Stop 11/24/16 at 18:21; Status DC A/P Assessment and Plan A/P - knee contractures- s/p manipulation under anesthesia s/p botox injection to the right and left medial hamstrings continue pain control Fentanyl drip was converted to Fentanyl patch- continue rehab efforts- ortho f/u appreciated. rehab medicine following. -low grade fever; temps better- missy monitor temps for now -multiple sclerosis- resumed home meds- neurology following. -DVT prophylaxis; SCD's -per ortho. Discharge Planning dc planning to inpatient rehab- providing that long-term post-rehab dc planning is in place. d/w the case management. Chase Rosales MD Nov 25, 2016 11:28
[2016-11-25 12:00] VITALS: BP 124/70; PULSE 87; RESP 18; TEMP 97.9; O2SAT 93
[2016-11-25] MEDS ORDERED: PILL SPLITTER OTHER PRN (13:00)
[2016-11-25] MEDS: LACTATED RINGER'S 1000 ML INJ 1,000 ML IV SCH ×2 (14:52→23:28)
--- NOTE | 2016-11-25 15:11 | HHI.PR ---
Subjective Subjective Comments Patient awake and alert. Resting comfortably in bed. Sitting with physical therapy. Pain with knee range of motion left greater than right but able to tolerate to 90 on the right with distraction. Allergies: Coded Allergies: Lortab (Unverified Allergy, Mild, patient states no allergy, 11/21/16) Review of Systems All other ROS: ROS reviewed as documented in chart Exam I&O / VS 11/24/16 11/24/16 11/25/16 15:00 23:00 07:00 Intake Total 220 ml 160 ml Balance 220 ml 160 ml Intake Oral 220 ml 160 ml # Voids 1 2 3 # Bowel Movements 0 0 Vital Signs Date Time Temp Pulse Resp B/P Pulse Ox O2 Delivery O2 Flow Rate FiO2 11/25/16 12:00 97.9 87 18 124/70 93 11/25/16 08:00 97.3 88 18 125/73 97 11/25/16 04:00 98.0 99 24 142/75 94 11/25/16 00:00 98.4 88 22 105/63 96 11/24/16 20:25 Nasal Cannula 2.00 Humidified 11/24/16 20:00 97.3 82 20 110/70 98 11/24/16 16:00 97.7 77 18 100/61 99 General: No acute distress Skin: Wound(s) (Left anterior collins wound with dressing in place) Musculoskeletal: Swelling (None in the distal lower extremities) Psychiatric: Cooperative Orientation: oriented to Self, oriented to Situation Neurologic: Speech (Clear) Motor: Right Upper Extremity (5/5 with decreased coordination), Left Upper Extremity (5/5 decreased coordination), Right Lower Extremity (knee extension to 90), Left Lower Extremity (difficult to assess due to pain but knee extension is approximately 90) Clonus: Negative Objective Micro and Labs Laboratory Tests Test 11/25/16 09:45 Total Creatine Kinase 299 Creatine Kinase MB 1.5 Creatine Kinase MB % 0.5 C-Reactive Protein 10.80 Date/Time Procedure Status Source Growth 11/25/16 14:00 Gram Stain Received Wound Other Pending 11/25/16 14:00 Wound Culture Received Wound Other Pending Assessment and Plan Diagnosis: (1) Multiple sclerosis (2) Bilateral knee contractures (3) Spastic paraplegia Assessment 1. 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 Anxiety 3. Left anterior collins wound Plan 1. Continue daily physical therapy for range of motion mobilizing up to sitting as tolerated. 2. Continue with continuous passive motion to bilateral knees 3. Increase baclofen to 15 mg by mouth 3 times a day 4. Occupational therapy for ADL training 5. Anticipate the patient will need ongoing inpatient rehabilitation. Clarification of discharge disposition is in process. 6. Will follow. Lety Mccollum MD Nov 25, 2016 15:11
[2016-11-25 16:00] VITALS: BP 126/72; PULSE 88; RESP 18; TEMP 97.2; O2SAT 93
[2016-11-25 21:00] VITALS: BP 107/69; PULSE 111; RESP 17; TEMP 98.4; O2SAT 99
[2016-11-25] MEDS: DOCUSATE SODIUM 50 MG/SENNA 8.6 MG TAB PO SCH (21:00)
[2016-11-26 00:35] VITALS: BP 97/60; PULSE 106; RESP 17; TEMP 96.4; O2SAT 99
[2016-11-26 04:55] VITALS: BP 105/63; PULSE 105
[2016-11-26] MEDS: DULoxetine HCl DR 60 MG CAP PO SCH (08:22)
[2016-11-26] MEDS: ASCORBIC ACID 500 MG TAB PO SCH ×2 (08:23→20:33)
[2016-11-26] MEDS: FERROUS SULFATE 325 MG (65 MG ELEMENTAL IRON) TAB PO SCH (08:23)
[2016-11-26] MEDS: MORPHINE SULFATE 15 MG CONTROLLED RELEASE TAB PO SCH ×2 (08:23→20:33)
[2016-11-26] MEDS: PROPRANOLOL HCL 20 MG TAB PO SCH (08:23)
[2016-11-26] MEDS: BACLOFEN 10 MG TAB PO SCH ×3 (08:23→17:32)
[2016-11-26] MEDS: ZINC SULFATE 220 MG CAP PO SCH (08:23)
[2016-11-26] MEDS: MULTIVITAMINS/MINERALS THERAPEUTIC TAB PO SCH ×2 (08:23→20:32)
[2016-11-26 08:30] VITALS: BP 112/64; PULSE 101; RESP 16; TEMP 97.4; O2SAT 99
[2016-11-26] MEDS: SODIUM CHLORIDE 0.9% FLUSH 5 ML FLUSH IVF SCH ×2 (08:30→20:33)
[2016-11-26] MEDS: LACTATED RINGER'S 1000 ML IV SCH ×2 (08:31→23:10)
[2016-11-26] MEDS: DOCUSATE SODIUM 100 MG CAP PO SCH ×2 (08:31→20:32)
[2016-11-26] MEDS: LACTATED RINGER'S 1000 ML INJ 1,000 ML IV SCH ×2 (08:32→23:10)
[2016-11-26] MEDS: COLLAGENASE OINT 30 GM TUBE TOP SCH (08:32)
--- NOTE | 2016-11-26 09:42 | HHI.PR ---
Subjective Subjective Comments Patient denies any sedation with increased baclofen and feels that her lower extremity spasticity is slightly improved. Slept fairly well last night. Allergies: Coded Allergies: No Known Allergies (Unverified , 11/28/16) Review of Systems All other ROS: ROS reviewed as documented in chart Exam I&O / VS 11/25/16 11/25/16 11/26/16 15:00 23:00 07:00 Intake Total 480 ml 120 ml Balance 480 ml 120 ml Intake Oral 480 ml 120 ml # Voids 2 2 # Bowel Movements 2 1 Vital Signs Date Time Temp Pulse Resp B/P Pulse Ox O2 Delivery O2 Flow Rate FiO2 11/26/16 04:55 105 105/63 11/26/16 00:35 96.4 106 17 97/60 99 11/25/16 21:00 98.4 111 17 107/69 99 11/25/16 19:08 Room Air 11/25/16 16:00 97.2 88 18 126/72 93 11/25/16 12:00 97.9 87 18 124/70 93 General: No acute distress Skin: Wound(s) (Left anterior collins wound with dressing in place) Musculoskeletal: Swelling (None in the distal lower extremities) Psychiatric: Cooperative Orientation: oriented to Self, oriented to Situation Motor: Right Upper Extremity (4+/5), Left Upper Extremity (4+/5), Right Lower Extremity (Unable to tolerate range of motion), Left Lower Extremity (Unable to tolerate range of motion) Objective Micro and Labs Laboratory Tests Test 11/25/16 09:45 Total Creatine Kinase 299 Creatine Kinase MB 1.5 Creatine Kinase MB % 0.5 C-Reactive Protein 10.80 Date/Time Procedure Status Source Growth 11/25/16 14:00 Gram Stain - Final Resulted Wound Other 11/25/16 14:00 Wound Culture Resulted Wound Other Pending Assessment and Plan Diagnosis: (1) Multiple sclerosis (2) Bilateral knee contractures (3) Spastic paraplegia Assessment 1. 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 Anxiety 3. Left anterior collins wound Plan 1. Continue daily physical therapy for range of motion. Patient is max assist of 2 for sitting 2. Continue with continuous passive motion to bilateral knees 3. Tolerating increase in baclofen to 15 mg by mouth 3 times a day. Will further adjust as tolerated. 4. Occupational therapy following for ADLs 5. Anticipate the patient will need ongoing inpatient rehabilitation. Clarification of discharge disposition is in process per case management. 6. Will continue to follow. Lety Mccollum MD Nov 26, 2016 09:42
--- NOTE | 2016-11-26 10:45 | PD.ORT.PN ---
Subjective Subjective Remarks pt more comfortable today. Objective Vitals Vital Signs Date Time Temp Pulse Resp B/P Pulse Ox O2 Delivery O2 Flow Rate FiO2 11/26/16 08:30 97.4 101 16 112/64 99 11/26/16 04:55 105 105/63 11/26/16 00:35 96.4 106 17 97/60 99 11/25/16 21:00 98.4 111 17 107/69 99 11/25/16 19:08 Room Air 11/25/16 16:00 97.2 88 18 126/72 93 11/25/16 12:00 97.9 87 18 124/70 93 I/O 11/25/16 11/25/16 11/25/16 11/26/16 11/26/16 11/26/16 07:00 15:00 23:00 07:00 15:00 23:00 Intake Total 160 ml 480 ml 120 ml 120 ml Balance 160 ml 480 ml 120 ml 120 ml Intake Oral 160 ml 480 ml 120 ml 120 ml # Voids 3 2 2 2 # Bowel Movements 0 2 1 0 Imaging Last 24 hours Impressions Knee X-Ray 11/21/16 1052 Signed Impressions: Service Date/Time: November 16:16 - CONCLUSION: Unremarkable limited examination of the left knee. Tobi Cannon MD Objective Remarks Still contracted. Wound culture neg. Assessment & Plan Ortho Post Op Day #: 5 Problem List: Assessment and Plan Rehab per Dr Hernandes. Donnell Colon MD Nov 26, 2016 10:45
--- NOTE | 2016-11-26 10:45 | HHI.PR ---
Subjective Remarks Follow-up visit knee contractures, status post manipulation under anesthesia status post Botox injection to the right and left medial hamstrings. Patient seen today. Reports she is doing well. States she is eating well. Pain is manageable with pain medications. Denies pain and discomfort. Denies SOB/ dyspnea. Denies chest pain, palpitations, headaches, dizziness. Denies fevers, chills, n/v/d. Objective Vitals Vital Signs Date Time Temp Pulse Resp B/P Pulse Ox O2 Delivery O2 Flow Rate FiO2 11/26/16 08:30 97.4 101 16 112/64 99 11/26/16 04:55 105 105/63 11/26/16 00:35 96.4 106 17 97/60 99 11/25/16 21:00 98.4 111 17 107/69 99 11/25/16 19:08 Room Air 11/25/16 16:00 97.2 88 18 126/72 93 11/25/16 12:00 97.9 87 18 124/70 93 I/O 11/25/16 11/25/16 11/25/16 11/26/16 11/26/16 11/26/16 07:00 15:00 23:00 07:00 15:00 23:00 Intake Total 160 ml 480 ml 120 ml 120 ml Balance 160 ml 480 ml 120 ml 120 ml Intake Oral 160 ml 480 ml 120 ml 120 ml # Voids 3 2 2 2 # Bowel Movements 0 2 1 0 Imaging Last Impressions Knee X-Ray 11/21/16 1052 Signed Impressions: Service Date/Time: November 16:16 - CONCLUSION: Unremarkable limited examination of the left knee. Tobi Cannon MD Objective Remarks GENERAL: This is a thin-appearing, pleasant patient, in no apparent distress. HEENT: Normocephalic. Pupils equal round and reactive. Nose without bleeding. Airway patent. NECK: Trachea midline. No JVD. Supple. CARDIOVASCULAR: Regular rate and rhythm without murmurs, gallops, or rubs. RESPIRATORY: Clear to auscultation. Breath sounds equal bilaterally. No wheezes , rales, or rhonchi. GASTROINTESTINAL: Abdomen soft, non-tender, nondistended. Bowel Sounds normoactive x4. MUSCULOSKELETAL: Extremities without clubbing, cyanosis, or edema. Contracture right knee. NEUROLOGICAL: Awake and alert. Oriented to self and place. Normal speech. 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 She states she has been like this for about a month, is being followed by Dr. Costello her neurologist as well and will most likely need aggressive therapy after surgery. - knee contractures- s/p manipulation under anesthesia s/p botox injection to the right and left medial hamstrings continue pain control previously on Fentanyl drip was converted to Fentanyl patch, with relief continue rehab efforts- ortho f/u appreciated. Continues to contractures. rehab medicine following. -low grade fever; temps better- missy monitor temps for now No temps reported in the past 3 days. - Tachycardia -may be pain related. Encouraged by mouth fluid intake. On exam , heart rate in the 90s. Check BMP. -multiple sclerosis- resumed home meds- neurology following. -DVT prophylaxis; SCD's -per ortho. Discussed with patient, nursing Written by Wilman Escobar, on behalf of Dr. Doran on 11/26/16 at 10:44. Discharge Planning DC planning to inpatient rehab- providing that long-term post-rehab dc planning is in place. D/W the case management. Attending Statement patient was seen today. overall doing fine. pain is controlled. awaiting discharge planning to be finalized. rest of assessment and plan as noted above. Wilman Ferrer Nov 26, 2016 10:45 Chase Rosales MD Nov 26, 2016 11:18
[2016-11-26] MEDS: ACETAMINOPHEN/HYDROcodone 325 MG/10 MG TAB PO PRN (11:21)
[2016-11-26 12:50] VITALS: BP 124/70; PULSE 106; RESP 18; TEMP 97.6; O2SAT 98
[2016-11-26 16:46] VITALS: BP 100/62; PULSE 98; RESP 16; TEMP 96.2; O2SAT 100
--- NOTE | 2016-11-26 18:37 | HHI.PR ---
Subjective Subjective Comments Patient resting comfortably in bed. Reports the pain is well-controlled at rest but increases with movement. Reports that she slept well last night. Allergies: Coded Allergies: Lortab (Unverified Allergy, Mild, patient states no allergy, 11/21/16) Review of Systems All other ROS: ROS reviewed as documented in chart Exam I&O / VS 11/25/16 11/25/16 11/26/16 15:00 23:00 07:00 Intake Total 480 ml 120 ml Balance 480 ml 120 ml Intake Oral 480 ml 120 ml # Voids 2 2 # Bowel Movements 2 1 Vital Signs Date Time Temp Pulse Resp B/P Pulse Ox O2 Delivery O2 Flow Rate FiO2 11/26/16 16:46 96.2 98 16 100/62 100 11/26/16 12:50 97.6 106 18 124/70 98 11/26/16 08:30 97.4 101 16 112/64 99 11/26/16 04:55 105 105/63 11/26/16 00:35 96.4 106 17 97/60 99 11/25/16 21:00 98.4 111 17 107/69 99 11/25/16 19:08 Room Air General: No acute distress Skin: Wound(s) (Left anterior collins wound with dressing in place) Musculoskeletal: Swelling (None in the distal lower extremities) Psychiatric: Cooperative Orientation: oriented to Self, oriented to Situation Neurologic: Speech (Clear) Motor: Right Lower Extremity (Unable to perform range of motion due to pain), Left Lower Extremity (Knee extension to approximately 90) Objective Micro and Labs Date/Time Procedure Status Source Growth 11/25/16 14:00 Gram Stain - Final Resulted Wound Other 11/25/16 14:00 Wound Culture - Preliminary Resulted Proteus Species Assessment and Plan Diagnosis: (1) Multiple sclerosis (2) Bilateral knee contractures (3) Spastic paraplegia Assessment 1. 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 Anxiety 3. Left anterior collins wound Plan 1. Continue daily physical therapy for range of motion. Patient is max assist of 2 for for bed mobility. Patient seen in conjunction with rehabilitation therapist today 2. Continue with continuous passive motion to bilateral knees 3. Tolerating increase in baclofen to 15 mg by mouth 3 times a day. Will further adjust as tolerated. 4. Occupational therapy following for ADLs 5. Anticipate the patient will need ongoing inpatient rehabilitation. Clarification of discharge disposition is in process per case management. 6. Will continue to follow. Lety Mccollum MD Nov 26, 2016 18:37
[2016-11-26] MEDS: DOCUSATE SODIUM 50 MG/SENNA 8.6 MG TAB PO SCH (20:32)
[2016-11-26 21:04] VITALS: BP 100/60; PULSE 78; RESP 18; TEMP 98.6; O2SAT 99
[2016-11-27 00:30] VITALS: BP 97/58; PULSE 100; RESP 18; TEMP 97.7; O2SAT 96
[2016-11-27] MEDS: ACETAMINOPHEN/HYDROcodone 325 MG/10 MG TAB PO PRN ×2 (06:47→11:26)
[2016-11-27 08:00] VITALS: BP 93/58; PULSE 93; RESP 16; TEMP 98; O2SAT 98
--- NOTE | 2016-11-27 08:06 | HHI.PR ---
Objective Vital Signs Date Time Temp Pulse Resp B/P Pulse Ox O2 Delivery O2 Flow Rate FiO2 11/27/16 00:30 97.7 100 18 97/58 96 11/26/16 21:04 98.6 78 18 100/60 99 11/26/16 18:52 Room Air 11/26/16 16:46 96.2 98 16 100/62 100 11/26/16 12:50 97.6 106 18 124/70 98 11/26/16 08:30 97.4 101 16 112/64 99 I/O 11/26/16 11/26/16 11/26/16 11/27/16 11/27/16 11/27/16 07:00 15:00 23:00 07:00 15:00 23:00 Intake Total 600 ml 480 ml 240 ml Balance 600 ml 480 ml 240 ml Intake Oral 600 ml 480 ml 240 ml # Voids 5 3 3 # Bowel Movements 0 0 0 Objective Remarks pain maybe a little less b knee up in chest i can get to 90 degrees still bad ctx Assessment and Plan Assessment and Plan imp ok to rehab by me crp and esr up ua pend i believe i checked a lot of rheum labs in office i will check Kt Costello MD Nov 27, 2016 08:06
[2016-11-27 08:31] LABS: BACTERIA, URINE OCC /hpf; BLOOD, URINE NEG (NEG); COMMENT (UR) CULT NOT INDICATED; CULTURE IF INDICATED CULT NOT INDICATED; GLUCOSE,URINE NEG (NEG); KETONE, URINE NEG (NEG); MUCUS URINE FEW /lpf (OCC); NITRITE,URINE NEG (NEG); PH, URINE 5.5 (5.0-8.5); SQUAMOUS EPITHELIAL CELL URINE <1 /hpf (0-5); URINE COLOR YELLOW (YELLW/STRAW)
[2016-11-27] MEDS: DOCUSATE SODIUM 100 MG CAP PO SCH (09:00)
[2016-11-27] MEDS: ZINC SULFATE 220 MG CAP PO SCH (09:02)
[2016-11-27] MEDS: BACLOFEN 10 MG TAB PO SCH (09:02)
[2016-11-27] MEDS: DULoxetine HCl DR 60 MG CAP PO SCH (09:02)
[2016-11-27] MEDS: PROPRANOLOL HCL 20 MG TAB PO SCH (09:03)
[2016-11-27] MEDS: MULTIVITAMINS/MINERALS THERAPEUTIC TAB PO SCH (09:03)
[2016-11-27] MEDS: FERROUS SULFATE 325 MG (65 MG ELEMENTAL IRON) TAB PO SCH (09:04)
[2016-11-27] MEDS: MORPHINE SULFATE 15 MG CONTROLLED RELEASE TAB PO SCH (09:04)
[2016-11-27] MEDS: ASCORBIC ACID 500 MG TAB PO SCH (09:04)
--- NOTE | 2016-11-27 10:06 | HHI.PR ---
Subjective Remarks resting comfortably with no distress. pain is controlled. no new complaints. Objective Vitals Vital Signs Date Time Temp Pulse Resp B/P Pulse Ox O2 Delivery O2 Flow Rate FiO2 11/27/16 08:00 98.0 93 16 93/58 98 11/27/16 00:30 97.7 100 18 97/58 96 11/26/16 21:04 98.6 78 18 100/60 99 11/26/16 18:52 Room Air 11/26/16 16:46 96.2 98 16 100/62 100 11/26/16 12:50 97.6 106 18 124/70 98 I/O 11/26/16 11/26/16 11/26/16 11/27/16 11/27/16 11/27/16 07:00 15:00 23:00 07:00 15:00 23:00 Intake Total 600 ml 480 ml 240 ml Balance 600 ml 480 ml 240 ml Intake Oral 600 ml 480 ml 240 ml # Voids 5 3 3 # Bowel Movements 0 0 0 Imaging Last Impressions Knee X-Ray 11/21/16 1052 Signed Impressions: Service Date/Time: November 16:16 - CONCLUSION: Unremarkable limited examination of the left knee. Tobi Cannon MD Objective Remarks GENERAL: in no apparent distress. CARDIOVASCULAR: Regular rate and regular rhythm without murmurs, gallops, or rubs. RESPIRATORY: Clear to auscultation. Breath sounds equal bilaterally. No wheezes , rales, or rhonchi. GASTROINTESTINAL: Abdomen soft, non-tender, nondistended. Normal, active bowel sounds MUSCULOSKELETAL: Extremities without clubbing, cyanosis, or edema. NEURO: awake and alert Procedures knee manipulation under anesthesia Medications and IVs Current Medications Lactated Ringer's 1,000 ml @ 30 mls/hr Q24H IV Last administered on 11/24/16t 10:31; Start 11/21/16 at 09:00 Sodium Chloride (NS 500 ml Inj) 500 ml @ 30 mls/hr [id number] IV ; Start 11/21/16 at 09:00; Stop 11/22/16 at 08:59; Status DC Insulin Human Regular (NovoLIN R INJ) See Protocol Table ... UNSCH X1 PRN SQ SEE PROTOCOL; Start 11/21/16 at 09:00; Stop 11/22/16 at 08:59; Status DC Metoprolol Tartrate (Lopressor) 25 mg UNSCH X1 PRN PO SEE LABEL COMMENTS; Start 11/21/16 at 09:00; Stop 11/22/16 at 08:59; Status DC Midazolam HCl (Versed Inj) 2 mg STK-MED ONCE .ROUTE ; Start 11/21/16 at 10:05; Stop 11/21/16 at 10:06; Status DC Fentanyl Citrate (fentaNYL INJ) 250 mcg STK-MED ONCE .ROUTE ; Start 11/21/16 at 10:06; Stop 11/21/16 at 10:07; Status DC Midazolam HCl (Versed Inj) 2 mg STK-MED ONCE IVS Last administered on 11/21/16 10:05; Start 11/21/16 at 10:05; Stop 11/21/16 at 10:10; Status DC Sugammadex Sodium (Bridion Inj) 200 mg STK-MED ONCE IV PUSH ; Start 11/21/16 at 10:23; Stop 11/21/16 at 10:24; Status DC Ascorbic Acid (Vitamin C) 500 mg BID PO Last administered on 11/27/16 09:04; Start 11/21/16 at 21:00 Baclofen (Lioresal) 10 mg TID PO Last administered on 11/25/16 08:42; Start 11/21/16 at 13:00; Stop 11/25/16 at 11:29; Status DC Bisacodyl (Dulcolax Supp) 10 mg DAILY PRN RECTAL CONSTIPATION; Start 11/21/16 at 11:00 Collagenase (Santyl Oint) 1 applic DAILY TOP Last administered on 11/25/16 08: 48; Start 11/22/16 at 09:00 Docusate Sodium (Colace) 100 mg BID PO Last administered on 11/26/16 20:32; Start 11/21/16 at 21:00 Duloxetine HCl (Cymbalta Dr) 60 mg DAILY PO Last administered on 11/27/16 09:02 ; Start 11/22/16 at 09:00 Ferrous Sulfate (Ferrous Sulfate) 325 mg DAILY PO Last administered on 09:04; Start 11/22/16 at 09:00 Acetaminophen/ Hydrocodone Bitart (Felicity 10-325 Mg) 1 tab Q6H PRN PO PAIN 1-10 Last administered on 11/27/16 06:47; Start 11/21/16 at 11:00 Magnesium Hydroxide (Milk Of Magnesau Liq) 30 ml DAILY PRN PO INDIGESTION OR UPSET STOMACH; Start 11/21/16 at 11:00 Morphine Sulfate (Oramorph Sr) 15 mg BID PO Last administered on 11/27/16 09:04 ; Start 11/21/16 at 21:00 Multivitamins/ Minerals Therapeutic (Theragran M Tab) 1 tab DAILY PO ; Start 11/22/16 at 09:00; Status UNV Propranolol HCl (Inderal) 60 mg DAILY PO Last administered on 11/27/16 09:03; Start 11/22/16 at 09:00 Zinc Sulfate (Zinc Sulfate) 220 mg DAILY PO Last administered on 11/27/16 09:02 ; Start 11/22/16 at 09:00 Non-Formulary Medication 1 injection MONTHLY IM ; Start 11/21/16 at 11:00; Status UNV Non-Formulary Medication 30 mcg 30 mcg DIRECTED IM Multiple sclerosis; Start 11/21/16 at 11:00; Stop 11/21/16 at 20:37; Status DC Lactated Ringer's (Lr 1000 ml Inj) 1,000 ml @ 80 mls/hr [id number] IV Last administered on 11/21/16 22:51; Start 11/21/16 at 10:52 IV Flush (NS Flush) 2 ml UNSCH PRN IVF FLUSH AFTER USING IV ACCESS; Start at 11:00 IV Flush (NS Flush) 2 ml BID IVF Last administered on 11/26/16 20:33; Start 11/21/16 at 21:00 Miscellaneous Information (Post-op Orders (for Pharmacy)) STAT ONCE XX ; Start 11/21/16 at 11:00; Stop 11/21/16 at 11:30; Status DC Acetaminophen (Tylenol) 650 mg Q6H PRN PO FEVER/HEADACHE; Start 11/21/16 at 11: 00 Multivitamins/ Minerals Therapeutic (Theragran M Tab) 1 tab BID PO Last administered on 11/27/16 09:03; Start 11/22/16 at 21:00; Stop 01/21/17 at 20:59 Ondansetron HCl (Zofran Inj) 4 mg Q6H PRN IVP NAUSEA OR VOMITING; Start at 11:00 Docusate Sodium (Colace) 100 mg BID PO ; Start 11/22/16 at 21:00; Status UNV Temazepam (Restoril) 15 mg HS PRN PO SLEEP; Start 11/21/16 at 11:00 Naloxone HCl (Narcan Inj) 0.4 mg UNSCH PRN IV RESPIRATORY RATE LESS THAN 10; Start 11/21/16 at 11:00 Diphenhydramine HCl (Benadryl Inj) 25 mg Q6H PRN IV ITCHING; Start 11/21/16 at 11:00 Hydromorphone HCl 1 mg 1 mg STK-MED ONCE .ROUTE Last administered on 11/21/16 11:23; Start 11/21/16 at 11:23; Stop 11/21/16 at 11:24; Status DC Fentanyl/ Bupivacaine HCl (fentaNYL 2MCG-BUPIV 0.125% INJ) 100 ml @ As Directed STK-MED ONCE .ROUTE ; Start 11/21/16 at 11:26; Stop 11/21/16 at 11:27; Status DC Morphine Sulfate (*morphine INJ PERIprocedure ONLY) 8 mg STK-MED ONCE .ROUTE Last administered on 11/21/16 11:32; Start 11/21/16 at 11:32; Stop 11/21/16 at 11: 33; Status DC Miscellaneous Information ALL NURSING DEPARTME... UNSCH PRN XX SEE LABEL COMMENTS; Start 11/21/16 at 11:30; Stop 11/22/16 at 11:29; Status DC Fentanyl Citrate (fentaNYL INJ) 100 mcg STK-MED ONCE .ROUTE ; Start 11/21/16 at 11:39; Stop 11/21/16 at 11:40; Status DC Senna/Docusate Sodium (Heather-Colace) 2 tab HS PO Last administered on 11/26/16 20:32; Start 11/21/16 at 21:00 Miscellaneous Information No systemic narcotics to be given except... UNSCH PRN XX SEE DOSE INSTRUCTIONS; Start 11/21/16 at 12:45; Stop 11/22/16 at 12:44; Status DC Miscellaneous Information DO NOT ADMINISTER ANY ANTICOAGUL... UNSCH PRN XX SEE DOSE INSTRUCTIONS; Start 11/21/16 at 12:45; Stop 11/22/16 at 12:44; Status DC Ephedrine Sulfate (ePHEDrine/NS 25 MG/5 ML SYR) 10 mg UNSCH PRN IV SEE LABEL COMMENTS; Start 11/21/16 at 12:45; Stop 11/22/16 at 12:44; Status DC Non-Formulary Medication 30 mcg 30 mcg DIRECTED IM Multiple sclerosis; Start 11/21/16 at 20:45; Status UNV Fentanyl/ Bupivacaine HCl (fentaNYL 2MCG-BUPIV 0.125% INJ) 100 ml @ As Directed STK-MED ONCE .ROUTE ; Start 11/21/16 at 21:01; Stop 11/21/16 at 21:02; Status DC Onabotulinumtoxina (Botox Inj) 200 units UNSCH .XX ; Start 11/22/16 at 11:00 Hydromorphone HCl (Dilaudid Pf Inj) 0.5 mg NOW ONCE IV PUSH Last administered on 11/22/16t 09:01; Start 11/22/16 at 09:00; Stop 11/22/16 at 09:01; Status DC Morphine Sulfate (Duramorph Pf 0.5 Mg/ml Inj) 5 mg STK-MED ONCE .ROUTE ; Start 11/22/16 at 08:30; Stop 11/22/16 at 08:56; Status DC Fentanyl Citrate (fentaNYL INJ) 100 mcg STK-MED ONCE .ROUTE ; Start 11/22/16 at 08:31; Stop 11/22/16 at 08:56; Status DC Propofol (Diprivan 200 Mg/20 ml Inj) 200 mg STK-MED ONCE IV ; Start 11/21/16 at 12:00; Stop 11/22/16 at 10:45; Status DC Ondansetron HCl 4 mg 4 mg STK-MED ONCE IV PUSH ; Start 11/21/16 at 12:00; Stop at 10:45; Status DC Fentanyl/ Bupivacaine HCl 100 ml @ As Directed STK-MED ONCE .ROUTE ; Start 11/22 at 12:35; Stop 11/22/16 at 12:36; Status DC Fentanyl/ Bupivacaine HCl 100 ml @ 0 mls/hr Q0M EPIDURAL ; Start 3/3/17 at 22: 30; Stop 11/23/16 at 05:59; Status DC Fentanyl/ Bupivacaine HCl 100 ml @ As Directed STK-MED ONCE .ROUTE ; Start 11/23 at 17:46; Stop 11/23/16 at 17:47; Status DC Fentanyl/ Bupivacaine HCl (fentaNYL 2MCG-BUPIV 0.125% INJ) 100 ml @ As Directed STK-MED ONCE .ROUTE ; Start 11/24/16 at 07:36; Stop 11/24/16 at 07:37; Status DC Fentanyl 1 patch 1 patch Q3D TD Last administered on 11/25/16 05:52; Start 11/25 at 07:00 Fentanyl/ Bupivacaine HCl (fentaNYL 2MCG-BUPIV 0.125% INJ) 100 ml @ As Directed STK-MED ONCE .ROUTE ; Start 11/24/16 at 18:20; Stop 11/24/16 at 18:21; Status DC Baclofen (Lioresal) 15 mg TID PO Last administered on 11/27/16 09:02; Start 11/25/16 at 13:00 Miscellaneous (Pill Splitter) 1 ea UNSCH PRN OTHER SEE LABEL COMMENTS; Start at 13:00 A/P Assessment and Plan A/P - knee contractures- s/p manipulation under anesthesia s/p botox injection to the right and left medial hamstrings continue pain control Fentanyl drip was converted to Fentanyl patch- continue rehab efforts- ortho f/u appreciated. rehab medicine following. -low grade fever; temps better- missy monitor temps for now -multiple sclerosis- resumed home meds- neurology following. -wound of the left- wound care -DVT prophylaxis; SCD's -per ortho. Discharge Planning dc to inpatient rehab. f/u; pcp and neurology. see med list. d/w the patient and RN. Chase Rosales MD Nov 27, 2016 10:06
[2016-11-27] MEDS ORDERED: FENT50T TD (10:08)
[2016-11-27] MEDS ORDERED: BACL10TA PO (10:08)
--- NOTE | 2016-11-27 10:09 | HHI.DCPOC ---
Discharge Care Plan Diagnosis: (1) Bilateral knee contractures Your Health Problems Are: Chronic Pain Goals to Promote Your Health * To prevent worsening of your condition and complications * To maintain your health at the optimal level Directions to Meet Your Goals Take your medications as prescribed Follow your dietary instruction Follow activity as directed Keep your appointments as scheduled Take your immunizations and boosters as scheduled If your symptoms worsen call your PCP, if no PCP go to Urgent Care Center or Emergency Room Smoking is Dangerous to Your Health. Avoid second hand smoke Call the 24-hour hour crisis hotline for domestic abuse at Chase Rosales MD Nov 27, 2016 10:09
--- NOTE | 2016-11-27 10:10 | HHI.DS ---
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 at the time of my evaluation she was in no acute distress-however- complaining of pain to both knees. she denies any other complaints ; no chest pain, abdominal pain, nausea. Significant Findings Laboratory Tests Test 11/25/16 11/27/16 09:45 07:40 Total Creatine Kinase 299 U/L (26-192) C-Reactive Protein 10.80 MG/DL (0.00-0.30) Urine Turbidity HAZY (CLEAR) Urine Leukocyte Esterase SMALL (NEG) Urine Bacteria OCC /hpf (NONE) Urine Mucus FEW /lpf (OCC) Imaging Last Impressions Knee X-Ray 11/21/16 1052 Signed Impressions: Service Date/Time: November 16:16 - CONCLUSION: Unremarkable limited examination of the left knee. Tobi Cannon MD PE at Discharge GENERAL: This is a thin-appearing, pleasant patient, in no apparent distress. HEENT: Normocephalic. Pupils equal round and reactive. Nose without bleeding. Airway patent. NECK: Trachea midline. No JVD. Supple. CARDIOVASCULAR: Regular rate and rhythm without murmurs, gallops, or rubs. RESPIRATORY: Clear to auscultation. Breath sounds equal bilaterally. No wheezes , rales, or rhonchi. GASTROINTESTINAL: Abdomen soft, non-tender, nondistended. Bowel Sounds normoactive x4. MUSCULOSKELETAL: Extremities without clubbing, cyanosis, or edema. Contracture right knee. NEUROLOGICAL: Awake and alert. Oriented to self and place. Normal speech. Hospital Course - knee contractures- s/p manipulation under anesthesia s/p botox injection to the right and left medial hamstrings continue pain control Fentanyl drip was converted to Fentanyl patch- continue rehab efforts- ortho f/u appreciated. rehab medicine following. -low grade fever; temps better- missy monitor temps for now -multiple sclerosis- resumed home meds- neurology following. -DVT prophylaxis; SCD's -per ortho. Pt Condition on Discharge: Good Discharge Disposition: Rehab Inpatient Discharge Time: <= 30 minutes Discharge Instructions DIET: Follow Instructions for: As Tolerated, No Restrictions Activities you can perform: Regular-No Restrictions Follow up Referrals: Neurology PCP Follow-up Wound [facility] New Medications: Baclofen (Baclofen) 10 Mg Tab 15 MG PO TID spasm Days 30 Ref 0 TAB Fentanyl Patch 72 HR (Duragesic Patch 72 HR) 50 Mcg/Hr Patch 1 PATCH TD Q3D Pain Management #2 PATCH Continued Medications: Ascorbic Acid (Vitamin C) 500 Mg Tab 500 MG PO BID Nutritional Supplement Ref 0 TAB B-Complex Vitamins Inj (Vitamin B-Complex 100 Inj) 1 Inj Inj 1 INJECTION IM MONTHLY Bisacodyl Supp (Dulcolax Supp) 10 Mg Supp 10 MG RECTAL DAILY PRN CONSTIPATION #12 Ref 0 SUPP Collagenase Topical (Santyl Topical) 250 Unit/Gm Oint 1 APPLIC TOPICAL DAILY Wound Management #15 Ref 0 GM Docusate Sodium (Colace) 100 Mg Cap 100 MG PO BID Constipation #[address] (Duloxetine DR) 60 Mg Capdr 60 MG PO DAILY #30 Ref 0 CAP Ferrous Sulfate (Ferrous Sulfate) 325 Mg Tab 325 MG PO DAILY Nutritional Supplement #30 Ref 0 TAB Hydrocodone-Acetaminophen ([place]) 10-325 Mg Tab 1 TAB PO Q6H PRN PAIN Ref 0 TAB Interferon Beta-1A Pen Inj Kit (Avonex Pen Inj Kit) 30 Mcg/0.5 Ml Pen 30 MCG IM DIRECTED on Multiple sclerosis Ref 0 KIT Magnesium Hydroxide Liq (Milk of Magnesia Liq) 400 Mg/5 Ml Susp 30 ML PO DAILY PRN INDIGESTION OR UPSET STOMACH #1 Ref 0 BOTTLE Morphine Sulfate CR (Morphine Sulfate CR) 15 Mg Tab 15 MG PO BID Multiple Vitamins W/ Minerals (Multivitamin Adults) 1 Tab 1 TAB PO DAILY Nutritional Supplement Ref 0 TAB Propranolol (Propranolol) 60 Mg Tab 60 MG PO DAILY #60 Ref 0 TAB Sennosides-Docusate Sodium (Senna S) 8.6-50 Mg Tab 2 PO HS Constipation Zinc Sulfate (Zinc Sulfate) 220 Mg Cap 220 MG PO DAILY Nutritional Supplement Ref 0 CAP Discontinued Medications: Baclofen (Baclofen) 10 Mg Tab 10 MG PO TID Muscle Spasm Ref 0 TAB Chase Rosales MD Nov 27, 2016 10:10
[2016-11-27 14:39] LABS: TOTAL PROTEIN SPE 6.3 GM/DL (6.0-7.6)
[2016-11-28 10:16] LABS: RAPID PLASMA REAGIN SCREEN NON-REACTIVE (NON-REACTVE)
[2016-11-28 11:45] LABS: ALBUMIN SPE 2.47 GM/DL (3.50-5.00); ALPHA 1 GLOBULIN 0.47 GM/DL (0.11-0.29); ALPHA 2 GLOBULIN 1.06 GM/DL (0.22-1.00); BETA GLOBULINS (SPE) 0.86 GM/DL (0.53-1.03)
[2016-11-29 14:23] LABS: ANA SCREEN NEG (NEG)
[2016-12-12] MEDS ORDERED: PRED20 PO (08:29)
[2016-12-12] MEDS ORDERED: MULT1TAB84 PO (08:29)
[2016-12-12] MEDS ORDERED: B-COINJ IM (08:29)
[2016-12-12] MEDS ORDERED: BACL10TA PO (08:29)
[2016-12-12] MEDS ORDERED: SENN8.6T8 PO (08:29)
[2016-12-12] MEDS ORDERED: VITA500T PO (08:29)
[2016-12-12] MEDS ORDERED: DULO1CAP3 PO (08:29)
[2016-12-12] MEDS ORDERED: AQUAOIN2 TOP (08:29)
[2016-12-12] MEDS ORDERED: PROP60TA PO (08:29)
[2016-12-12] MEDS ORDERED: PANT40TA3 PO (08:29)
[2016-12-12] MEDS ORDERED: GABA100C4 PO (08:29)
[2016-12-12] MEDS ORDERED: FERR325T PO (08:29)
[2016-12-12] MEDS ORDERED: POLY17S PO (08:29)
[2016-12-12] MEDS ORDERED: ZINC220C3 PO (08:29)
[2016-12-12] MEDS ORDERED: TIZA4 PO (08:32)
[2016-12-12] MEDS ORDERED: HEPA10003 SQ (08:42)
[2016-12-12] MEDS ORDERED: MORP1TAB25 PO (08:49)
[2016-12-12] MEDS ORDERED: HYDR-3583 PO (08:49)
[2017-01-10] MEDS ORDERED: PRED20 PO (15:10)
[2017-02-24] MEDS ORDERED: TYLE325T PO (10:36)
[2017-02-24] MEDS ORDERED: MULTTAB67 PO (10:36)
== END 2016-11-27 11:30 ==
LOC: HSDI 11-21 08:31 → UNDOADMIN 11-21 08:31 → HSDI 11-21 08:31 → EDSTATUS 11-21 10:30 → HSDI 11-21 12:39 → N06A 11-21 12:39
PROVIDERS: ADMIT Internal Medicine; ATTEND Internal Medicine
DX: M24.561 Contracture, right knee (principal); M24.562 Contracture, left knee; G35 Multiple sclerosis; M16.0 Bilateral primary osteoarthritis of hip; Q65.89 Other specified congenital deformities of hip; M24.551 Contracture, right hip; B96.4 Proteus (mirabilis) (morganii) as the cause of diseases classified elsewhere
CPT/HCPCS: 01380; 27570; 73560; 76000; 80053; 82550; 82552; 82607; 83921; 85025; 85610; 85652; 85730; 86140; 87070; 87077; 87186; 87205; 93005; 94150; 97110; 97161; 97167; 97530; G0378; G8987; G8988; J0585; J1170; J2250; J2270; J2274; J2405; J3010; J7120; L1830; 81001; 84165; 86038; 86592

== ENCOUNTER 2017-01-30 19:24 | Inpatient (IN) | payer MEDICARE, OTHER ==
[~2017-01-30] VITALS: Ht 154.9 cm; Wt 43.0 kg
[~2017-01-30 19:24] MED LIST changes: +AQUAOIN2 TOP; +BACL10TA PO; +DULO1CAP3 PO; +FERR325T PO; +GABA100C4 PO; +HYDR-3583 PO; -INTE30KI IM; -MORP1INJ45 PO; +MORP1TAB25 PO; +MULT1TAB84 PO; +PANT40TA3 PO; +POLY17S PO; +PRED20 PO; +PROP60TA PO; +SENN8.6T8 PO; +TIZA4 PO; +VITA500T PO; +ZINC220C3 PO
[2017-01-30] MEDS ORDERED: SODIUM CHLOR 0.9% 1000 ML INJ 1,000 ML IV ONE ×2 (19:31)
[2017-01-30] MEDS ORDERED: SODIUM CHLOR 0.9% 1000 ML INJ 100 ML IV ONE (19:31)
--- NOTE | 2017-01-30 19:53 | PD ---
HPI Chief Complaint: altered mental status Time Seen by Provider: 19:36 Travel History International Travel<30 days: No Contact w/Intl Traveler<30days: No History of Present Illness HPI 52 year old female with PMH of MS, spastic paraplegia, HTN, anxiety, chronic R knee pain presents to the ED via EMS for evaluation of altered mental status. According to EMS the patient was administered her pain meds as per normal, but upon return to the room the patient was found crying out, unresponsive. It is unknown what time she was last normal. On presentation the patient is squeezing her eyes shut, crying out, pushing the care providers away. She is not answering questions and is unavailable to provide any meaningful history. PFSH Past Medical History Arthritis: Yes Autoimmune Disease: Yes (ms) Anxiety: No Depression: No Cancer: No Cardiovascular Problems: Yes Chest Pain: No Congestive Heart Failure: No Cerebrovascular Accident: No Diabetes: No Endocrine: No Genitourinary: No Hiatal Hernia: No Immune Disorder: Yes (ms) Musculoskeletal: Yes Neurologic: Yes (ms) Psychiatric: No Reproductive: No Respiratory: No Migraines: No Seizures: No Thyroid Disease: No Past Surgical History AICD: No Joint Replacement: Yes (right knee) Pacemaker: No Social History Alcohol Use: Yes Tobacco Use: No Substance Use: No Allergies-Medications (Allergen,Severity, Reaction): Coded Allergies: No Known Allergies (Unverified , 01/30/17) Reported Meds & Prescriptions Reported Meds & Active Scripts Active Morphine ER (Morphine Sulfate) 30 Mg Tab 30 Mg PO Q8HR Hydrocodone-Acetaminophen 10-325 mg Tab 1 Tab PO Q6H PRN Zanaflex (Tizanidine HCl) 4 Mg Tab 2 Mg PO Q6HR PRN 30 Days Polyethylene Glycol 3350 Powder (Polyethylene Glycol) 17 Gm Pow 17 Gm PO DAILY PRN 30 Days Vitamin C (Ascorbic Acid) 500 Mg Tab 500 Mg PO BID 30 Days Ferrous Sulfate 325 Mg Tab 325 Mg PO DAILY Zinc Sulfate 220 Mg Cap 220 Mg PO DAILY 30 Days Multivitamin Adults (Multiple Vitamins W/ Minerals) 1 Tab 1 Tab PO DAILY [address] (Duloxetine HCl) 60 Mg Capdr 60 Mg PO DAILY 30 Days Propranolol (Propranolol HCl) 60 Mg Tab 60 Mg PO DAILY 30 Days Senna S (Sennosides-Docusate Sodium) 8.6-50 Mg Tab 1 Cap PO HS 30 Days Reported Milk of Magnesia Liq (Magnesium Hydroxide) 400 Mg/5 Ml Susp 30 Ml PO HS PRN Fleet Enema Rectal (Sodium Phosphates Rectal) 7-19 Gm/118 Ml Enem 118 Ml RECTAL DAILY PRN Dulcolax Supp (Bisacodyl) 10 Mg Supp 10 Mg RECTAL DAILY IN THE MORNING PRN Magnesium Citrate Liq (Magnesium Citrate) 300 Ml Liq 296 Ml PO DAILY IN THE MORNING PRN Baclofen 10 Mg Tab 10 Mg PO TID Gabapentin 100 Mg Cap 200 Mg PO BID Prednisone 5 Mg Tab 5 Mg PO DAILY Omeprazole 40 Mg Cap 40 Mg PO DAILY Avonex Inj Kit (Interferon Beta 1a) 30 Mcg/0.5 Ml Syr 30 Mcg IM FRIDAY IN AM Review of Systems ROS Limitations: Clinical Condition, Other: (unable to obtain any meaningful ROS ) Physical Exam Exam Limitations: Altered Mental Status, Uncooperative, Combative Narrative GENERAL: Well-nourished black female, crying out, resistant to exam SKIN: Focused skin assessment warm/dry. Pressure ulcers right knee and foot. No signs of infection. HEAD: Normocephalic. EYES: No scleral icterus. No injection or drainage. NECK: Supple, trachea midline. No JVD or lymphadenopathy. CARDIOVASCULAR: Regular rate and rhythm without murmurs, gallops, or rubs. RESPIRATORY: Breath sounds clear and equal bilaterally. No accessory muscle use. GASTROINTESTINAL: Abdomen non-tender, nondistended. Voluntary guarding. MUSCULOSKELETAL: No cyanosis, or edema. Contractures of bilateral knees and hips. Patient is moving the upper extremities freely, strongly pushing the providers away. BACK: Nontender. No CVA tenderness. Data Data Last Documented VS Vital Signs Date Time Temp Pulse Resp B/P Pulse Ox O2 Delivery O2 Flow Rate FiO2 01/30/17 21:24 114 18 110/53 99 01/30/17 19:56 102.9 Orders Electrocardiogram (01/30/17 19:31) Complete Blood Count With Diff (01/30/17 19:31) Comprehensive Metabolic Panel (01/30/17 19:31) Prothrombin Time / Inr (Pt) (01/30/17 19:31) Act Partial Throm Time (Ptt) (01/30/17 19:31) Lactic Acid Sepsis Protocol (01/30/17 19:31) Magnesium (Mg) (01/30/17 19:31) Lipase (01/30/17:31) Ckmb (Isoenzyme) Profile (01/30/17:) Troponin I (01/30/17:) Urinalysis - C+S If Indicated (01/30/17 19:31) Blood Culture (01/30/17:) Chest, Single Ap (01/30/17:31) Blood Glucose (01/30/17:) Ecg Monitoring (01/30/17) Iv Access Insert/Monitor (01/30/17:) Cath For Specimen (01/30/17:) Oximetry (01/30/17:) Oxygen Administration (01/30/17:) Ct Brain W/O Iv Contrast(Rout) (01/30/17 19:31) Sodium Chlor 0.9% 1000 Ml Inj (Ns 1000 M (01/30/17 19:31) Sodium Chlor 0.9% 1000 Ml Inj (Ns 1000 M (01/30/17:31) Sodium Chlor 0.9% 1000 Ml Inj (Ns 1000 M (01/30/17 19:31) Acetaminophen Supp (Tylenol Supp) (01/30/17 20:00) Vancomycin Inj (Vancomycin Inj) (01/30/17 19:58) Piperacil-Tazo 4.5 Gm Premix (Zosyn 4.5 (01/30/17 19:58) Admit Order (Ed Use Only) (01/30/17 21:39) Labs Laboratory Tests Test 01/30/17 19:45 White Blood Count 10.0 TH/MM3 Red Blood Count 5.11 MIL/MM3 Hemoglobin 11.9 GM/DL Hematocrit 37.5 % Mean Corpuscular Volume 73.3 FL Mean Corpuscular Hemoglobin 23.2 PG Mean Corpuscular Hemoglobin 31.7 % Concent Red Cell Distribution Width 18.4 % Platelet Count 258 TH/MM3 Mean Platelet Volume 8.0 FL Neutrophils (%) (Auto) 77.5 % Lymphocytes (%) (Auto) 8.9 % Monocytes (%) (Auto) 13.1 % Eosinophils (%) (Auto) 0.4 % Basophils (%) (Auto) 0.1 % Neutrophils # (Auto) 7.8 TH/MM3 Lymphocytes # (Auto) 0.9 TH/MM3 Monocytes # (Auto) 1.3 TH/MM3 Eosinophils # (Auto) 0.0 TH/MM3 Basophils # (Auto) 0.0 TH/MM3 CBC Comment AUTO DIFF Prothrombin Time 11.4 SEC Prothromb Time International 1.0 RATIO Ratio Activated Partial 27.0 SEC Thromboplast Time Urine Color YELLOW Urine Turbidity CLEAR Urine pH 6.0 Urine Specific [place] 1.016 Urine Protein NEG mg/dL Urine Glucose (UA) NEG mg/dL Urine Ketones NEG mg/dL Urine Occult Blood NEG Urine Nitrite NEG Urine Bilirubin NEG Urine Urobilinogen 4.0 MG/DL Urine Leukocyte Esterase TRACE Urine RBC 1 /hpf Urine WBC 1 /hpf Urine Squamous Epithelial <1 /hpf Cells Microscopic Urinalysis Comment CATH-CULT NOT IND Sodium Level 138 MEQ/L Potassium Level 3.8 MEQ/L Chloride Level 101 MEQ/L Carbon Dioxide Level 28.2 MEQ/L Anion Gap 9 MEQ/L Blood Urea Nitrogen 27 MG/DL Creatinine 0.67 MG/DL Estimat Glomerular Filtration 112 ML/MIN Rate Random Glucose 105 MG/DL Lactic Acid Level 1.5 mmol/L Calcium Level 8.3 MG/DL Magnesium Level 1.6 MG/DL Total Bilirubin 0.6 MG/DL Aspartate Amino Transf 23 U/L (AST/SGOT) Alanine Aminotransferase 40 U/L (ALT/SGPT) Alkaline Phosphatase 76 U/L Total Creatine Kinase 36 U/L Troponin I LESS THAN 0.02 NG/ML Total Protein 6.9 GM/DL Albumin 3.2 GM/DL Lipase 106 U/L MDM Medical Decision Making Medical Screen Exam Complete: Yes Emergency Medical Condition: Yes Differential Diagnosis urosepsis versus pneumonia versus cellulitis versus acute on chronic pain versus Narrative Course 52 year old female with PMH of MS, spastic paraplegia, HTN, anxiety, chronic R knee pain presents to the ED via EMS for evaluation of altered mental status. According to EMS the patient was administered her pain meds as per normal, but upon return to the room the patient was found crying out, unresponsive. It is unknown what time she was last normal. On presentation the patient is squeezing her eyes shut, crying out, pushing the care providers away. She is not answering questions and is unavailable to provide any meaningful history. Patient lives in [facility]. On exam the patient is crying out, clenching her eyes shut, pushing the providers away. No appreciable M/R/G, chest CT AB. Abdomen nontender, nondistended. Voluntary guarding. There are contractures of the bilateral lower extremities. There are 2 pressure ulcers of the right lower extremity without signs of infection. IV was established. Patient was placed on continuous monitoring. Old cultures were obtained. Acetaminophen suppository was administered. Sepsis fluid bolus was administered. IV vancomycin and Zosyn were initiated. Vitals: Temp 102.9. Pulse 120. BP 165/75. RR 18, 98% ORA CBC: WBC 10, hemoglobin 11.9. CMP: BUN 27, creatinine 0.67. UA: indicated. Lactic acid 1.5. Cardiac enzymes negative 1. CXR: No acute disease per radiology read. EKG: Rate 108, sinus tachycardia. OH interval 167, QRS 81, QTC 372. Normal axis. No ST elevations or depressions. Reviewed by Dr. Galdamez. Patient meets SIRS criteria, uncertain of the source of this time. CT of the brain pending. PCP Dr. Luis Bills. Spoke with Dr. Bills by phone. He agrees to admission for further evaluation. Please see his notes for disposition. Sepsis Criteria SIRS Criteria (2 or more): Temp > 100.9 or < 96.8, Heart rate over 90 Criteria Outcome: Meets SIRS criteria Verónica Tinsley January 30, 2017 19:53
[2017-01-30 19:56] VITALS: BP 165/75; PULSE 120; RESP 18; TEMP 102.9; O2SAT 98
[2017-01-30 19:58] VITALS: RESP 18; O2SAT 98
[2017-01-30] MEDS ORDERED: VANCOMYCIN INJ 1,000 MG in SODIUM CHLOR 0.9% 250 ML INJ 250 ML IV STA (19:58)
[2017-01-30] MEDS ORDERED: PIPERACIL-TAZO 4.5 GM PREMIX 100 ML IV STA (19:58)
[2017-01-30] MEDS ORDERED: ACETAMINOPHEN 650 MG SUPP RECTAL ONE (20:00)
--- NOTE | 2017-01-30 20:19 | RADRPT ---
EXAM DATE/TIME: 01/30/2017 19:49 [facility] COMPARISON: No previous studies available for comparison. INDICATIONS : Short of breath. MEDICAL HISTORY : Unobtainable. SURGICAL HISTORY : Unobtainable. ENCOUNTER: Initial ACUITY: 1 day PAIN SCORE: Non-responsive. LOCATION: Bilateral chest FINDINGS: Lungs appear grossly clear. Cardiac contours appears satisfactory accounting for substantial rotation . Thoracic skeleton is grossly intact. CONCLUSION: No acute disease. Miguel Ángel Barajas MD on January 30, 2017 at 20:16 Board Certified Radiologist. This report was verified electronically.
[2017-01-30 20:22] LABS: AUTOMATED NEUTROPHIL # 7.8 TH/MM3 (1.8-7.7); BASOPHIL % 0.1 % (0.0-2.0); BLOOD, URINE NEG (NEG); EOSINOPHIL % 0.4 % (0.0-4.0); GLUCOSE,URINE NEG (NEG); HEMATOCRIT 37.5 % (35.0-46.0); KETONE, URINE NEG (NEG); LYMPH % 8.9 % (9.0-44.0); LYMPHOCYTE # 0.9 TH/MM3 (1.0-4.8); MEAN CELL VOLUME 73.3 FL (80.0-100.0); MEAN CORPUSCULAR HEMOGLOBIN 23.2 PG (27.0-34.0); MEAN CORPUSCULAR HGB CONC 31.7 % (32.0-36.0); MONO % 13.1 % (0.0-8.0); NEUT % 77.5 % (16.0-70.0); NITRITE,URINE NEG (NEG); PLATELET COUNT 258 TH/MM3 (150-450); RED BLOOD COUNT 5.11 MIL/MM3 (4.00-5.30); RED CELL DISTRIBUTION WIDTH 18.4 % (11.6-17.2); SQUAMOUS EPITHELIAL CELL URINE <1 /hpf (0-5); URINE COLOR YELLOW (YELLW/STRAW)
[2017-01-30 20:24] LABS: COMMENT (UR) CATH-CULT NOT IND; CULTURE IF INDICATED CATH CULTURE NOT IND
[2017-01-30 20:28] LABS: HEMO FLAGS AUTO DIFF
[2017-01-30 20:33] LABS: PROTHROMBIN TIME - PATIENT 11.4 SEC (9.8-11.6)
[2017-01-30 20:40] LABS: ANION GAP 9 MEQ/L (5-15); AST (GOT) 23 U/L (15-37); BICARBONATE 28.2 MEQ/L (21.0-32.0); BLOOD UREA NITROGEN 27 MG/DL (7-18); CHLORIDE 101 MEQ/L (98-107); GLOMERULAR FILTRATION RATE 112 ML/MIN (>89); MAGNESIUM 1.6 MG/DL (1.5-2.5); POTASSIUM 3.8 MEQ/L (3.5-5.1); SODIUM (NA) 138 MEQ/L (136-145)
[2017-01-30 20:45] LABS: ALKALINE PHOSPHATASE 76 U/L (45-117); ALT (GPT) 40 U/L (10-53); TOTAL BILIRUBIN ADULT 0.6 MG/DL (0.2-1.0)
[2017-01-30 20:53] LABS: CREATINE KINASE 36 U/L (26-192)
[2017-01-30] MEDS ORDERED: INTE1KIT3 IM (21:17)
[2017-01-30] MEDS ORDERED: PRED5TAB PO (21:17)
[2017-01-30] MEDS ORDERED: OMEP40CA2 PO (21:17)
[2017-01-30] MEDS ORDERED: BACL10TA PO (21:22)
[2017-01-30] MEDS ORDERED: GABA100C4 PO (21:22)
[2017-01-30 21:24] VITALS: BP 110/53; PULSE 114; RESP 18; O2SAT 99
[2017-01-30] MEDS ORDERED: MAGNSOL2 PO (21:30)
[2017-01-30] MEDS ORDERED: FLEEENE3 RECTAL (21:30)
[2017-01-30] MEDS ORDERED: DULC10SU3 RECTAL (21:30)
[2017-01-30] MEDS ORDERED: MILKSUS PO (21:30)
[2017-01-30 21:41] LABS: PLATELET ESTIMATE SMEAR NORMAL (NORMAL); PLATELET MORPHOLOGY NORMAL (NORMAL); SCAN/DIFF AUTO DIFF CONFIRMED; STOMATOCYTES 1+ (NORMAL)
[2017-01-30 22:25] VITALS: BP 116/59; PULSE 107; RESP 18; O2SAT 99
--- NOTE | 2017-01-30 22:44 | RADRPT ---
EXAM DATE/TIME: 01/30/2017 22:34 [facility] COMPARISON: No previous studies available for comparison. INDICATIONS : Altered mental status. RADIATION DOSE: 33.81 CTDIvol (mGy) MEDICAL HISTORY : Multple sclerosis. SURGICAL HISTORY : None. ENCOUNTER: Initial ACUITY: 1 day PAIN SCALE: Non-responsive LOCATION: cranial TECHNIQUE: Multiple contiguous axial images were obtained of the head. Using automated exposure control and adj ustment of the mA and/or kV according to patient size, radiation dose was kept as low as reasonably a chievable to obtain optimal diagnostic quality images. FINDINGS: There is mild periventricular hypodensity most notably in the parietal regions. No evidence of intrac ranial mass or hemorrhage. There is nothing to suggest acute infarction. The ventricles are symmetric and normal. The extracranial structures are benign and intact. CONCLUSION: Mild white matter changes. No acute intracranial findings. Miguel Ángel Barajas MD on January 30, 2017 at 22:41 Board Certified Radiologist. This report was verified electronically.
[2017-01-30] MEDS ORDERED: PIPERACIL-TAZO 3.375 GM PREMIX 50 ML IV SCH (23:00)
[2017-01-30] MEDS ORDERED: Vancomycin Consult Pharmacy 1 EA OTHER SCH (23:00)
[2017-01-30] MEDS: HEPARIN SODIUM - SQ 10,000 UNITS/ML VIAL SQ SCH (23:37)
[2017-01-30] MEDS: SODIUM CHLOR 0.9% 1000 ML INJ 1,000 ML IV SCH (23:37)
[2017-01-31] VITALS: BP 106/66; PULSE 97; RESP 19; TEMP 97.9; O2SAT 100
[2017-01-31] MEDS: PIPERACIL-TAZO 3.375 GM PREMIX 50 ML IV SCH ×2 (01:52→08:45)
[2017-01-31 05:11] LABS: AUTOMATED NEUTROPHIL # 5.8 TH/MM3 (1.8-7.7); BASOPHIL % 0.3 % (0.0-2.0); EOSINOPHIL % 0.2 % (0.0-4.0); LYMPH % 16.3 % (9.0-44.0); LYMPHOCYTE # 1.5 TH/MM3 (1.0-4.8); MEAN CELL VOLUME 73.5 FL (80.0-100.0); MEAN CORPUSCULAR HEMOGLOBIN 23.5 PG (27.0-34.0); MEAN CORPUSCULAR HGB CONC 31.9 % (32.0-36.0); MONO % 18.5 % (0.0-8.0); NEUT % 64.7 % (16.0-70.0); PLATELET COUNT 226 TH/MM3 (150-450); RED BLOOD COUNT 4.76 MIL/MM3 (4.00-5.30); RED CELL DISTRIBUTION WIDTH 18.2 % (11.6-17.2)
[2017-01-31 05:34] LABS: HEMO FLAGS AUTO DIFF
[2017-01-31 05:49] LABS: ALKALINE PHOSPHATASE 65 U/L (45-117); ALT (GPT) 32 U/L (10-53); ANION GAP 8 MEQ/L (5-15); AST (GOT) 16 U/L (15-37); BLOOD UREA NITROGEN 15 MG/DL (7-18); CHLORIDE 102 MEQ/L (98-107); GLOMERULAR FILTRATION RATE 133 ML/MIN (>89); POTASSIUM 3.6 MEQ/L (3.5-5.1); SODIUM (NA) 138 MEQ/L (136-145); TOTAL BILIRUBIN ADULT 0.8 MG/DL (0.2-1.0)
[2017-01-31] MEDS: MORPHINE SULFATE 30 MG CONTROLLED RELEASE TAB PO SCH ×3 (05:58→21:35)
[2017-01-31 06:54] LABS: SCAN/DIFF AUTO DIFF CONFIRMED
[2017-01-31 08:00] VITALS: BP 134/70; PULSE 101; RESP 20; TEMP 100.6; O2SAT 98
[2017-01-31] MEDS: ACETAMINOPHEN/HYDROcodone 325 MG/10 MG TAB PO PRN ×3 (08:54→20:05)
--- NOTE | 2017-01-31 08:55 | HHI.HP ---
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 GENERAL PROGRESSION OF MS OVER THE LAST SEVERAL YEARS. PT HERE RECENTLY THEN DISCHARGED BACK TO [facility]. PT HAS BEEN NONCOOPERATIVE WITH THERAPY AT THE [facility]. INCREASING CONTRACTURES AND PAIN HAS BEEN DIFFICULT TO CONTROL. PT REMAINS DELUSIONAL AND BELIEVES SHE CAN BE AT HOME ALONE. YESTERDAY AT THE [facility] SHE BECAME LETHARGIC, FOUND WITH FEVER 101 DEGREES, I WAS CALLED AND SUGGESTED ER. PT SEEN BY THE ER MD AND GIVEN IV ABX AND SEPSIS PROTOCOL. PT ASKING FOR INCREASED PAIN MEDS, AND SUBSEQUENTLY I HAVE PLACED HER BACK ON HER MS CONTIN TID. Sepsis Criteria SIRS Criteria (2 or more): Temp > 100.9 or < 96.8, Heart rate over 90 Criteria Outcome: Meets sepsis criteria Review of Systems ROS Limitations: Clinical Condition, Altered Mental Status, Uncooperative Past Family Social History Allergies: Coded Allergies: No Known Allergies (Unverified , 01/30/17) Past Medical History Past Medical History Arthritis: Yes Autoimmune Disease: Yes (ms) Anxiety: No Depression: No Cancer: No Cardiovascular Problems: Yes Chest Pain: No Congestive Heart Failure: No Cerebrovascular Accident: No Diabetes: No Endocrine: No Genitourinary: No Hiatal Hernia: No Immune Disorder: Yes (ms) Musculoskeletal: Yes Neurologic: Yes (ms) Psychiatric: No Reproductive: No Respiratory: No Migraines: No Seizures: No Thyroid Disease: No Past Surgical History AICD: No Joint Replacement: Yes (right knee) Pacemaker: No Social History Alcohol Use: Yes Tobacco Use: No Substance Use: No Allergies-Medications Allergies-Medications (Allergen,Severity, Reaction): Coded Allergies: No Known Allergies (Unverified , 01/30/17) Reported Meds & Prescriptions Reported Meds & Active Scripts Active Morphine ER (Morphine Sulfate) 30 Mg Tab 30 Mg PO Q8HR Hydrocodone-Acetaminophen 10-325 mg Tab 1 Tab PO Q6H PRN Zanaflex (Tizanidine HCl) 4 Mg Tab 2 Mg PO Q6HR PRN 30 Days Polyethylene Glycol 3350 Powder (Polyethylene Glycol) 17 Gm Pow 17 Gm PO DAILY PRN 30 Days Vitamin C (Ascorbic Acid) 500 Mg Tab 500 Mg PO BID 30 Days Ferrous Sulfate 325 Mg Tab 325 Mg PO DAILY Zinc Sulfate 220 Mg Cap 220 Mg PO DAILY 30 Days Multivitamin Adults (Multiple Vitamins W/ Minerals) 1 Tab 1 Tab PO DAILY [address] (Duloxetine HCl) 60 Mg Capdr 60 Mg PO DAILY 30 Days Propranolol (Propranolol HCl) 60 Mg Tab 60 Mg PO DAILY 30 Days Senna S (Sennosides-Docusate Sodium) 8.6-50 Mg Tab 1 Cap PO HS 30 Days Reported Milk of Magnesia Liq (Magnesium Hydroxide) 400 Mg/5 Ml Susp 30 Ml PO HS PRN Fleet Enema Rectal (Sodium Phosphates Rectal) 7-19 Gm/118 Ml Enem 118 Ml RECTAL DAILY PRN Dulcolax Supp (Bisacodyl) 10 Mg Supp 10 Mg RECTAL DAILY IN THE MORNING PRN Magnesium Citrate Liq (Magnesium Citrate) 300 Ml Liq 296 Ml PO DAILY IN THE MORNING PRN Baclofen 10 Mg Tab 10 Mg PO TID Gabapentin 100 Mg Cap 200 Mg PO BID Prednisone 5 Mg Tab 5 Mg PO DAILY Omeprazole 40 Mg Cap 40 Mg PO DAILY Avonex Inj Kit (Interferon Beta 1a) 30 Mcg/0.5 Ml Syr 30 Mcg IM FRIDAY IN AM Physical Exam Vital Signs Vital Signs Date Time Temp Pulse Resp B/P Pulse Ox O2 Delivery O2 Flow Rate FiO2 01/31/17 08:00 100.6 101 20 134/70 98 01/31/17 00:00 97.9 97 19 106/66 100 01/30/17 22:25 107 18 116/59 99 01/30/17 21:24 114 18 110/53 99 01/30/17 19:58 18 98 01/30/17 19:56 102.9 120 18 165/75 98 Physical Exam GENERAL: This is a frail, cachectic, in no apparent distress. SKIN: No rashes, ecchymoses or lesions. Cool and dry. B leg ulcers and wounds HEAD: Atraumatic. Normocephalic. No temporal or scalp tenderness. EYES: Pupils equal round and reactive. Extraocular motions intact. No scleral icterus. No injection or drainage. ENT: Nose without bleeding, purulent drainage or septal hematoma. Throat without erythema, tonsillar hypertrophy or exudate. Uvula midline. Airway patent. NECK: Trachea midline. No JVD or lymphadenopathy. Supple, nontender, no meningeal signs. CARDIOVASCULAR: Regular rate and rhythm without murmurs, gallops, or rubs. RESPIRATORY: Clear to auscultation. Breath sounds equal bilaterally. No wheezes , rales, or rhonchi. GASTROINTESTINAL: Abdomen soft, non-tender, nondistended. No hepato-splenomegaly , or palpable masses. No guarding. MUSCULOSKELETAL: Extremities without clubbing, cyanosis, or edema. No joint tenderness, effusion, or edema noted. No calf tenderness. Negative Homans sign bilaterally. NEUROLOGICAL: Awake and alert. Cranial nerves II through XII intact. Upper and lower ext severe contractures. 1 out of 5 muscle strength in all muscle groups. Normal speech. Laboratory Laboratory Tests Test 01/30/17 01/31/17 19:45 04:55 White Blood Count 10.0 9.0 Red Blood Count 5.11 4.76 Hemoglobin 11.9 11.2 Hematocrit 37.5 35.0 Mean Corpuscular Volume 73.3 73.5 Mean Corpuscular Hemoglobin 23.2 23.5 Mean Corpuscular Hemoglobin 31.7 31.9 Concent Red Cell Distribution Width 18.4 18.2 Platelet Count 258 226 Mean Platelet Volume 8.0 7.6 Neutrophils (%) (Auto) 77.5 64.7 Lymphocytes (%) (Auto) 8.9 16.3 Monocytes (%) (Auto) 13.1 18.5 Eosinophils (%) (Auto) 0.4 0.2 Basophils (%) (Auto) 0.1 0.3 Neutrophils # (Auto) 7.8 5.8 Lymphocytes # (Auto) 0.9 1.5 Monocytes # (Auto) 1.3 1.7 Eosinophils # (Auto) 0.0 0.0 Basophils # (Auto) 0.0 0.0 CBC Comment AUTO DIFF AUTO DIFF Differential Comment AUTO DIFF AUTO DIFF CONFIRMED CONFIRMED Platelet Estimate NORMAL Platelet Morphology Comment NORMAL Stomatocytes 1+ Prothrombin Time 11.4 Prothromb Time International 1.0 Ratio Activated Partial 27.0 Thromboplast Time Urine Color YELLOW Urine Turbidity CLEAR Urine pH 6.0 Urine Specific [place] 1.016 Urine Protein NEG Urine Glucose (UA) NEG Urine Ketones NEG Urine Occult Blood NEG Urine Nitrite NEG Urine Bilirubin NEG Urine Urobilinogen 4.0 Urine Leukocyte Esterase TRACE Urine RBC 1 Urine WBC 1 Urine Squamous Epithelial <1 Cells Microscopic Urinalysis Comment CATH-CULT NOT IND Sodium Level 138 138 Potassium Level 3.8 3.6 Chloride Level 101 102 Carbon Dioxide Level 28.2 28.0 Anion Gap 9 8 Blood Urea Nitrogen 27 15 Creatinine 0.67 0.58 Estimat Glomerular Filtration 112 133 Rate Random Glucose 105 101 Lactic Acid Level 1.5 Calcium Level 8.3 8.3 Magnesium Level 1.6 Total Bilirubin 0.6 0.8 Aspartate Amino Transf 23 16 (AST/SGOT) Alanine Aminotransferase 40 32 (ALT/SGPT) Alkaline Phosphatase 76 65 Total Creatine Kinase 36 Troponin I LESS THAN 0.02 Total Protein 6.9 6.2 Albumin 3.2 2.9 Lipase 106 Date/Time Procedure Status Source Growth 01/30/17 19:50 Aerobic Blood Culture Received Blood Peripheral Pending 01/30/17 19:50 Anaerobic Blood Culture Received Blood Peripheral Pending Result Diagram: 01/31/17 0455 01/31/17 0455 Assessment and Plan Problem List: (1) Sepsis Status: Acute (2) Multiple sclerosis Status: Chronic (3) Spastic paraplegia Status: Chronic (4) Impaired mobility and activities of daily living Status: Acute (5) Pressure ulcer of left leg, stage 2 Status: Acute (6) Bilateral knee contractures Status: Chronic (7) Contracture of left hip Status: Chronic (8) Anxiety Status: Acute (9) Contracture of right hip joint Status: Chronic (10) 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 EXPECT 4 D INPT STAY. DISPO: BACK TO [facility]. Luis Bills MD January 31, 2017 08:55
[2017-01-31] MEDS ORDERED: VANCOMYCIN 500 MG/NS 100 ML IV SCH ×2 (09:00)
--- NOTE | 2017-01-31 09:22 | PD.CONS ---
History of Present Illness Service Infectious Disease Consult Requested By Dr Bills Reason for Consult Evaluate patient for sepsis Primary Care Physician Unknown Diagnoses: History of Present Illness Patient seen and examined. Records reviewed. Patient is a 52-year-old female, who is bedridden, has multiple sclerosis, and has significant contractures of her lower extremity, came from the senior care , brought into the hospital for evaluation of some dilutions. She was having the problem the day prior to admission and on the day of admission she was lethargic and had a fever of 101. She was taken to the hospital for further evaluation and treatment. Patient denies any sore throat or any respiratory complaints. She has not had any nausea or vomiting, diarrhea. She denies any dysuria. Patient has chronic pain and complains mostly of pain in her lower extremity. She states she gets Botox injection in her lower extremity for her significant spasticity. Patient has been febrile since admission. Her WBC is normal. Chest x-rays okay. CT of the head did not show any acute finding. Her urinalysis is unremarkable. Infectious disease consultation has been requested to evaluate the patient. Review of Systems Constitutional: COMPLAINS OF: Fever, Chills Eyes: DENIES: Eye pain Ears, nose, mouth, throat: DENIES: Nasal discharge, Oral lesions, Throat pain, Running Nose, Sinus Pain Respiratory: DENIES: Cough, Shortness of breath Cardiovascular: DENIES: Chest pain, Palpitations Gastrointestinal: DENIES: Abdominal pain, Diarrhea, Nausea, Vomiting, Difficulty Swallowing Genitourinary: DENIES: Dysuria Musculoskeletal: COMPLAINS OF: Joint pain, Stiffness Integumentary: DENIES: Rash Hematologic/lymphatic: DENIES: Bruising Neurologic: DENIES: Headache Psychiatric: COMPLAINS OF: Anxiety, Confusion, DENIES: Hallucinations Past Family Social History Allergies: Coded Allergies: No Known Allergies (Unverified , 01/30/17) Past Medical History Multiple sclerosis UTI Contractures Hypertension Anxiety Chronic pain Past Surgical History Right knee replacement 11/22/2016 patient underwent bilateral LE manipulation under anesthesia by Dr. Colon. Botox injection to her bilateral hamstrings by Dr. Mccollum. Active Ordered Medications [place] Heparin Oramorph Zosyn IV vancomycin Social History Rare EtOH use Denies tobacco use Denies illicit drug use Came from [facility] Physical Exam Vital Signs Vital Signs Date Time Temp Pulse Resp B/P Pulse Ox O2 Delivery O2 Flow Rate FiO2 01/31/17 08:00 100.6 101 20 134/70 98 01/31/17 00:00 97.9 97 19 106/66 100 01/30/17 22:25 107 18 116/59 99 01/30/17 21:24 114 18 110/53 99 01/30/17 19:58 18 98 01/30/17 19:56 102.9 120 18 165/75 98 Physical Exam GENERAL: This is a well-nourished, well-developed female, awake and alert, nontoxic appearing, not in respiratory distress. SKIN: Warm and dry. No generalized rash, no ecchymoses. HEAD: Atraumatic. Normocephalic. No temporal or scalp tenderness. EYES: [place] conjunctivae, no petechia or hemorrhage. Pupils equal round and reactive. Extraocular motions intact. No scleral icterus. No injection or drainage. ENT: Nose without bleeding, or purulent drainage. Moist oral mucosa. No oral thrush. Throat without erythema, or exudate. Uvula midline. Airway patent. NECK: Trachea midline. No JVD or lymphadenopathy. Supple, nontender, no meningeal signs. CARDIOVASCULAR: Regular rate and rhythm without murmurs, gallops, or rubs. RESPIRATORY: Clear to auscultation. Breath sounds equal bilaterally. No wheezes , rales, or rhonchi. GASTROINTESTINAL: Abdomen firm, flat, non-tender, bowel sounds are present and hypoactive. No guarding. No rebound. MUSCULOSKELETAL: Extremities without clubbing, cyanosis,. Has significant spasticity of both LE and they are flexed at hip and knee joints. Some pedal edema. No joint effusion noted, and she is not able to move any of her joints due to spasticity. No calf tenderness. NEUROLOGICAL: Awake and alert. Cranial nerves II through XII intact. Good strength in her UE. Normal speech PSYCH: Calm and cooperative LINE: PIV with no evidence of infection Laboratory Laboratory Tests Test 01/30/17 01/31/17 19:45 04:55 White Blood Count 10.0 9.0 Red Blood Count 5.11 4.76 Hemoglobin 11.9 11.2 Hematocrit 37.5 35.0 Mean Corpuscular Volume 73.3 73.5 Mean Corpuscular Hemoglobin 23.2 23.5 Mean Corpuscular Hemoglobin 31.7 31.9 Concent Red Cell Distribution Width 18.4 18.2 Platelet Count 258 226 Mean Platelet Volume 8.0 7.6 Neutrophils (%) (Auto) 77.5 64.7 Lymphocytes (%) (Auto) 8.9 16.3 Monocytes (%) (Auto) 13.1 18.5 Eosinophils (%) (Auto) 0.4 0.2 Basophils (%) (Auto) 0.1 0.3 Neutrophils # (Auto) 7.8 5.8 Lymphocytes # (Auto) 0.9 1.5 Monocytes # (Auto) 1.3 1.7 Eosinophils # (Auto) 0.0 0.0 Basophils # (Auto) 0.0 0.0 CBC Comment AUTO DIFF AUTO DIFF Differential Comment AUTO DIFF AUTO DIFF CONFIRMED CONFIRMED Platelet Estimate NORMAL Platelet Morphology Comment NORMAL Stomatocytes 1+ Prothrombin Time 11.4 Prothromb Time International 1.0 Ratio Activated Partial 27.0 Thromboplast Time Urine Color YELLOW Urine Turbidity CLEAR Urine pH 6.0 Urine Specific [place] 1.016 Urine Protein NEG Urine Glucose (UA) NEG Urine Ketones NEG Urine Occult Blood NEG Urine Nitrite NEG Urine Bilirubin NEG Urine Urobilinogen 4.0 Urine Leukocyte Esterase TRACE Urine RBC 1 Urine WBC 1 Urine Squamous Epithelial <1 Cells Microscopic Urinalysis Comment CATH-CULT NOT IND Sodium Level 138 138 Potassium Level 3.8 3.6 Chloride Level 101 102 Carbon Dioxide Level 28.2 28.0 Anion Gap 9 8 Blood Urea Nitrogen 27 15 Creatinine 0.67 0.58 Estimat Glomerular Filtration 112 133 Rate Random Glucose 105 101 Lactic Acid Level 1.5 Calcium Level 8.3 8.3 Magnesium Level 1.6 Total Bilirubin 0.6 0.8 Aspartate Amino Transf 23 16 (AST/SGOT) Alanine Aminotransferase 40 32 (ALT/SGPT) Alkaline Phosphatase 76 65 Total Creatine Kinase 36 Troponin I LESS THAN 0.02 Total Protein 6.9 6.2 Albumin 3.2 2.9 Lipase 106 Date/Time Procedure Status Source Growth 01/30/17 19:50 Aerobic Blood Culture Received Blood Peripheral Pending 01/30/17 19:50 Anaerobic Blood Culture Received Blood Peripheral Pending Result Diagram: 01/31/17 0455 01/31/17 0455 Imaging RADIOLOGY STUDIES/FILMS REVIEWED Last Impressions Head CT 01/30/17 193 Signed Impressions: Service Date/Time: January 22:34 - CONCLUSION: Mild white matter changes. No acute intracranial findings. Miguel Ángel Barajas MD Chest X-Ray 01/30/17 193 Signed Impressions: Service Date/Time: January 19:49 - CONCLUSION: No acute disease. Miguel Ángel Barajas MD Assessment and Plan Assessment and Plan IMPRESSION Sepsis on presentation, no obvious sourse - ?primary bacteremia - ?viral - WBC yael, CXR ok, UA ok Known MS, with significant spacticity/contractures of her LE RECOMMENDATION Change to Abx Influenza testing Monitor temps Follow C/S If no fevers and C/S negative, D/C Abx and D/C on no Abx Thank you for this consultation Other ID MD covering me 02/01-02/03 Discussed Condition With Explained plan to patient Patient wants to go home but told her that it would be unsafe especially since she lives alone and she has been bedridden due to her progressive MS Mariely Feliz MD January 31, 2017 09:22
[2017-01-31] MEDS ORDERED: SOD PHOSPHATE/SOD BIPHOSPHATE (ADULT) ENEMA 133ML RECTAL PRN (09:30)
[2017-01-31] MEDS ORDERED: ACETAMINOPHEN/HYDROcodone 325 MG/10 MG TAB PO PRN (09:30)
[2017-01-31] MEDS ORDERED: MAGNESIUM HYDROXIDE SUSP 30 ML CUP PO PRN (09:30)
[2017-01-31] MEDS ORDERED: POLYETHYLENE GLYCOL 17 GM PKG PO PRN (09:30)
[2017-01-31] MEDS ORDERED: ACETAMINOPHEN 325 MG TAB PO PRN (10:15)
[2017-01-31] MEDS: HEPARIN SODIUM - SQ 10,000 UNITS/ML VIAL SQ SCH ×2 (11:34→21:34)
[2017-01-31] MEDS: SODIUM CHLOR 0.9% 1000 ML INJ 1,000 ML IV SCH (11:36)
[2017-01-31 12:00] VITALS: BP 110/59; PULSE 103; RESP 18; TEMP 98.6; O2SAT 99
[2017-01-31] MEDS: DULoxetine HCl DR 60 MG CAP PO SCH (12:07)
[2017-01-31] MEDS: cefTRIAXone INJ 1,000 MG in SODIUM CHLORIDE 0.9% INJ 100 ML IV SCH (12:08)
[2017-01-31] MEDS ORDERED: BACLOFEN 10 MG TAB PO SCH (13:00)
[2017-01-31] MEDS: BACLOFEN 10 MG TAB PO SCH ×2 (13:17→20:01)
[2017-01-31 16:00] VITALS: BP 122/62; PULSE 110; RESP 20; TEMP 98.2; O2SAT 98
[2017-01-31 20:00] VITALS: BP 113/62; PULSE 100; RESP 17; TEMP 98.4; O2SAT 98
[2017-01-31] MEDS: DOCUSATE SODIUM 50 MG/SENNA 8.6 MG TAB PO SCH (20:09)
[2017-01-31] MEDS ORDERED: MORPHINE SULFATE 30 MG CONTROLLED RELEASE TAB PO SCH (22:00)
[2017-02-01] VITALS: BP 120/72; PULSE 82; RESP 17; TEMP 98; O2SAT 99
[2017-02-01] MEDS: ACETAMINOPHEN/HYDROcodone 325 MG/10 MG TAB PO PRN ×3 (00:22→14:44)
[2017-02-01] MEDS: SODIUM CHLOR 0.9% 1000 ML INJ 1,000 ML IV SCH ×2 (01:40→10:27)
[2017-02-01 07:26] LABS: BICARBONATE 25.3 MEQ/L (21.0-32.0); POTASSIUM 3.8 MEQ/L (3.5-5.1)
[2017-02-01 08:00] VITALS: BP 129/69; PULSE 93; RESP 17; TEMP 97.7; O2SAT 98
[2017-02-01] MEDS: MORPHINE SULFATE 30 MG CONTROLLED RELEASE TAB PO SCH ×2 (08:09→21:14)
[2017-02-01] MEDS: BACLOFEN 10 MG TAB PO SCH ×2 (08:09→21:14)
[2017-02-01] MEDS: PANTOPRAZOLE SOD 40 MG DELAYED RELEASE TAB PO SCH (08:09)
[2017-02-01] MEDS: predniSONE 5 MG TAB PO SCH (08:09)
[2017-02-01] MEDS: PROPRANOLOL HCL 20 MG TAB PO SCH (08:09)
[2017-02-01] MEDS: DULoxetine HCl DR 60 MG CAP PO SCH (08:09)
[2017-02-01] MEDS ORDERED: PHARMACY ORDERED LAB ONE (08:45)
--- NOTE | 2017-02-01 09:13 | HHI.PR ---
Subjective Remarks Patient is very pleasant, she is in the bed, appears in not acute distress. Denies any chest pain, shortness of breath, cough, fever or chills. She says she feels much better and she wants to go home. Denies nausea, vomiting, diarrhea or constipation. Objective Vitals Vital Signs Date Time Temp Pulse Resp B/P Pulse Ox O2 Delivery O2 Flow Rate FiO2 02/01/17 08:00 97.7 93 17 129/69 98 02/01/17 00:00 98.0 82 17 120/72 99 01/31/17 20:00 98.4 100 17 113/62 98 01/31/17 16:00 98.2 110 20 122/62 98 01/31/17 12:00 98.6 103 18 110/59 99 I/O 01/31/17 01/31/17 01/31/17 02/01/17 02/01/17 02/01/17 07:00 15:00 23:00 07:00 15:00 23:00 Intake Total 240 ml 840 ml 240 ml 940 ml Balance 240 ml 840 ml 240 ml 940 ml Intake Oral 240 ml 240 ml 240 ml 240 ml IV Total 600 ml 700 ml # Voids 5 3 2 6 # Bowel Movements 1 2 Result Diagram: 01/31/17 0455 02/01/17 0454 Imaging Last Impressions Head CT 01/30/171930 Signed Impressions: Service Date/Time: January 22:34 - CONCLUSION: Mild white matter changes. No acute intracranial findings. Miguel Ángel Barajas MD Chest X-Ray 01/30/171930 Signed Impressions: Service Date/Time: January 19:49 - CONCLUSION: No acute disease. Miguel Ángel Barajas MD Objective Remarks GENERAL: This is a frail, cachectic, in no apparent distress. SKIN: No rashes, ecchymoses or lesions. Cool and dry. B leg ulcers and wounds HEAD: Atraumatic. Normocephalic. No temporal or scalp tenderness. EYES: Pupils equal round and reactive. Extraocular motions intact. No scleral icterus. No injection or drainage. ENT: Nose without bleeding, purulent drainage or septal hematoma. Throat without erythema, tonsillar hypertrophy or exudate. Uvula midline. Airway patent. NECK: Trachea midline. No JVD or lymphadenopathy. Supple, nontender, no meningeal signs. CARDIOVASCULAR: Regular rate and rhythm without murmurs, gallops, or rubs. RESPIRATORY: Clear to auscultation. Breath sounds equal bilaterally. No wheezes , rales, or rhonchi. GASTROINTESTINAL: Abdomen soft, non-tender, nondistended. No hepato-splenomegaly , or palpable masses. No guarding. MUSCULOSKELETAL: Extremities without clubbing, cyanosis, or edema. No joint tenderness, effusion, or edema noted. No calf tenderness. Negative Homans sign bilaterally. NEUROLOGICAL: Awake and alert. Cranial nerves II through XII intact. Upper and lower ext severe contractures. 1 out of 5 muscle strength in all muscle groups. Normal speech. 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 Monitor VS Consult ID , seen by Dr Feliz, appreciate recommendations If neg Blood cx might stop abx and DC Blood cultures and urine cultures pending Contin MS and baclofen dose was lowered Restart home meds CXR , UA neg DVT ppx heparin SQ DISPO: BACK TO [facility] when cleared by ID Salima Valenzuela MD February 01, 2017 09:13
[2017-02-01] MEDS: cefTRIAXone INJ 1,000 MG in SODIUM CHLORIDE 0.9% INJ 100 ML IV SCH (10:25)
[2017-02-01] MEDS: HEPARIN SODIUM - SQ 10,000 UNITS/ML VIAL SQ SCH ×2 (10:27→21:14)
[2017-02-01 12:00] VITALS: BP 124/89; PULSE 80; RESP 17; TEMP 98.3; O2SAT 98
--- NOTE | 2017-02-01 13:52 | EKG ---
Date Performed: 01/30/2017 Time Performed: 19:54:19 PTAGE: 52 years EKG: Sinus tachycardia Left ventricular hypertrophy and ST-T change Compared to previous tracing , the patient has developed minimal lateral T wave flattening so the tracing is now suggestive of lef t ventricular hypertrophy. Abnormal ECG PREVIOUS TRACING : 11/21/2016 08.49.25 DOCTOR: Harleen Black Interpretating Date/Time 02/01/2017 14:21:17
[2017-02-01 16:00] VITALS: BP 128/79; PULSE 89; RESP 17; TEMP 96.6; O2SAT 98
[2017-02-01 20:00] VITALS: BP 143/79; PULSE 81; RESP 16; TEMP 97.8; O2SAT 99
[2017-02-01] MEDS: DOCUSATE SODIUM 50 MG/SENNA 8.6 MG TAB PO SCH (21:14)
[2017-02-02] VITALS: BP 142/88; PULSE 91; RESP 16; TEMP 97.3; O2SAT 98
[2017-02-02] MEDS: SODIUM CHLOR 0.9% 1000 ML INJ 1,000 ML IV SCH (02:02)
[2017-02-02] MEDS: ACETAMINOPHEN/HYDROcodone 325 MG/10 MG TAB PO PRN ×2 (02:19→08:06)
[2017-02-02 08:00] VITALS: BP 150/76; PULSE 84; RESP 17; TEMP 96.5; O2SAT 99
[2017-02-02] MEDS: PANTOPRAZOLE SOD 40 MG DELAYED RELEASE TAB PO SCH (08:05)
[2017-02-02] MEDS: PROPRANOLOL HCL 20 MG TAB PO SCH (08:05)
[2017-02-02] MEDS: BACLOFEN 10 MG TAB PO SCH (08:05)
[2017-02-02] MEDS: predniSONE 5 MG TAB PO SCH (08:05)
[2017-02-02] MEDS: DULoxetine HCl DR 60 MG CAP PO SCH (08:05)
--- NOTE | 2017-02-02 08:15 | HHI.FPPN ---
Subjective Remarks Patient seen and examined this morning. The patient's vitals are stable. She has been afebrile since January 31 in the a.m. The patient is without complaints or concerns this am. She feels well and is without concern . She desperately wants to go home and spend Mothers Day with her family. Objective Vitals Vital Signs Date Time Temp Pulse Resp B/P Pulse Ox O2 Delivery O2 Flow Rate FiO2 02/02/17 00:00 97.3 91 16 142/88 98 02/01/17 20:00 97.8 81 16 143/79 99 02/01/17 16:00 96.6 89 17 128/79 98 02/01/17 12:00 98.3 80 17 124/89 98 I/O 02/01/17 02/01/17 02/01/17 02/02/17 02/02/17 02/02/17 06:59 14:59 22:59 06:59 14:59 22:59 Intake Total 940 ml 529 ml 782 ml 240 ml Output Total 250 ml Balance 940 ml 529 ml 782 ml -10 ml Intake Oral 240 ml 120 ml 240 ml IV Total 700 ml 409 ml 782 ml Output Urine Total 250 ml # Voids 6 6 3 # Bowel Movements 1 0 Result Diagram: 01/31/17 0455 02/01/17 0454 Imaging Last Impressions Head CT 01/30/171930 Signed Impressions: Service Date/Time: January 22:34 - CONCLUSION: Mild white matter changes. No acute intracranial findings. Miguel Ángel Barajas MD Chest X-Ray 01/30/171930 Signed Impressions: Service Date/Time: January 19:49 - CONCLUSION: No acute disease. Miguel Ángel Barajas MD Objective Remarks GENERAL: This is a frail, cachectic, in no apparent distress. SKIN: No rashes, ecchymoses or lesions. Cool and dry. B leg ulcers and wounds HEAD: Atraumatic. Normocephalic. No temporal or scalp tenderness. EYES: Pupils equal round and reactive. Extraocular motions intact. No scleral icterus. No injection or drainage. ENT: Nose without bleeding, purulent drainage or septal hematoma. Throat without erythema, tonsillar hypertrophy or exudate. Uvula midline. Airway patent. NECK: Trachea midline. No JVD or lymphadenopathy. Supple, nontender, no meningeal signs. CARDIOVASCULAR: Regular rate and rhythm without murmurs, gallops, or rubs. RESPIRATORY: Clear to auscultation. Breath sounds equal bilaterally. No wheezes , rales, or rhonchi. GASTROINTESTINAL: Abdomen soft, non-tender, nondistended. No hepato-splenomegaly , or palpable masses. No guarding. MUSCULOSKELETAL: Extremities without clubbing, cyanosis, or edema. No joint tenderness, effusion, or edema noted. No calf tenderness. NEUROLOGICAL: Awake and alert. Upper and lower ext severe contractures. 1 out of 5 muscle strength in all muscle groups. Normal speech. 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 Blood cultures negative 2 days Contin MS and baclofen dose was lowered Restart home meds CXR , UA neg DVT ppx heparin SQ DISPO: BACK TO [facility] when cleared by ID Discharge Planning Patient medically cleared [facility] Problem List: (1) HTN (hypertension) Status: Chronic (2) Spastic paraplegia Status: Chronic (3) Sepsis Status: Acute (4) Febrile illness, acute Status: Acute Renetta Mcclain MD R3 February 02, 2017 08:15
[2017-02-02] MEDS ORDERED: MORP1TAB25 PO (08:17)
[2017-02-02] MEDS: MORPHINE SULFATE 30 MG CONTROLLED RELEASE TAB PO SCH (10:52)
[2017-02-06] MEDS ORDERED: AVONEX IM SCH (09:00)
[2017-02-06] MEDS ORDERED: [UNRECOGNIZED DRUG - OTHER] IM SCH (09:00)
[2017-02-24] MEDS ORDERED: MULTTAB67 PO (10:36)
[2017-02-24] MEDS ORDERED: TYLE325T PO (10:36)
== END 2017-02-02 11:11 | DRG 872 ==
LOC: NEPC 19:24 → NEDA 21:40 → N07B 01-31 00:03 → UNDODISIN 02-02 10:44
PROVIDERS: ADMIT Family Medicine; ATTEND Family Medicine
DX: A41.89 Other specified sepsis (principal); G82.20 Paraplegia, unspecified; R41.82 Altered mental status, unspecified; G35 Multiple sclerosis; I10 Essential (primary) hypertension; F41.9 Anxiety disorder, unspecified; G89.29 Other chronic pain; L89.892 Pressure ulcer of other site, stage 2; M16.0 Bilateral primary osteoarthritis of hip; Q65.89 Other specified congenital deformities of hip; Z96.651 Presence of right artificial knee joint; M19.90 Unspecified osteoarthritis, unspecified site; Z74.01 Bed confinement status
CPT/HCPCS: 70450; 71010; 76937; 80048; 80053; 81001; 82550; 83605; 83690; 83735; 84484; 85025; 85610; 85730; 87040; 93005; 96365; J0696; J1644; J2543; J3370; J7030; J7050; J7512; P9612

== ENCOUNTER 2017-03-10 11:26 | Inpatient (IN) | payer MEDICARE, OTHER ==
[~2017-03-10 11:26] MED LIST changes: -AQUAOIN2 TOP; +DULC10SU3 RECTAL; -FERR325T PO; +FLEEENE3 RECTAL; +INTE1KIT3 IM; +MAGNSOL2 PO; +MILKSUS PO; -MULT1TAB84 PO; +MULTTAB67 PO; +OMEP40CA2 PO; -PANT40TA3 PO; -PRED20 PO; +TYLE325T PO; -VITA500T PO
[2017-03-10 11:34] VITALS: BP 151/91; PULSE 132; RESP 18; O2SAT 100
[2017-03-10] MEDS ORDERED: SODIUM CHLOR 0.9% 1000 ML INJ 1,000 ML IV SCH ×2 (12:36→15:25)
--- NOTE | 2017-03-10 13:48 | RADRPT ---
EXAM DATE/TIME: 03/10/2017 13:19 [facility] COMPARISON: CT BRAIN W/O CONTRAST, January 30, 2017, 22:34. INDICATIONS : Patient found on floor, confused RADIATION DOSE: 31.22 CTDIvol (mGy) MEDICAL HISTORY : Multple sclerosis. Hypertension. SURGICAL HISTORY : None. ENCOUNTER: Initial ACUITY: 1 day PAIN SCALE: 0/10 LOCATION: cranial TECHNIQUE: Multiple contiguous axial images were obtained of the head. Using automated exposure control and adj ustment of the mA and/or kV according to patient size, radiation dose was kept as low as reasonably a chievable to obtain optimal diagnostic quality images. FINDINGS: CEREBRUM: The ventricles are normal for age. No evidence of midline shift, mass lesion, hemorrhage or acute in farction. No extra-axial fluid collections are seen. POSTERIOR FOSSA: The cerebellum and brainstem are intact. The 4th ventricle is midline. The cerebellopontine angle i s unremarkable. EXTRACRANIAL: The visualized portion of the orbits is intact. SKULL: The calvaria is intact. No evidence of skull fracture. CONCLUSION: 1. No acute intracranial abnormality identified. Bryan Pappas MD on March 10, 2017 at 13:44 Board Certified Radiologist. This report was verified electronically.
--- NOTE | 2017-03-10 14:15 | RADRPT ---
EXAM DATE/TIME: 03/10/2017 13:19 [facility] COMPARISON: CHEST SINGLE AP, January 30, 2017, 19:49. INDICATIONS : Shortness of breath. MEDICAL HISTORY : Multiple sclerosis. SURGICAL HISTORY : None. ENCOUNTER: Initial ACUITY: 1 day PAIN SCORE: 0/10 LOCATION: Bilateral chest FINDINGS: A single view of the chest demonstrates the lungs to be symmetrically aerated without evidence of mas s, infiltrate or effusion. The cardiomediastinal contours are unremarkable. Osseous structures are intact. CONCLUSION: 1. No acute cardiopulmonary findings identified. Bryan Pappas MD on March 10, 2017 at 14:13 Board Certified Radiologist. This report was verified electronically.
[2017-03-10 14:30] VITALS: O2SAT 98
--- NOTE | 2017-03-10 15:07 | PD ---
HPI Chief Complaint: Fall Time Seen by Provider: 15:01 Travel History International Travel<30 days: No Contact w/Intl Traveler<30days: No Traveled to known affect area: No History of Present Illness HPI 52-year-old female that presents to the ED for evaluation of Pastor act. Patient was Pastor acted by police after apparently DCF and police were contacted to check on the patient. Patient apparently sign out herself from the assisted living facility on Friday and she was supposed to go back that same day but she never made it back. Apparently per Pastor act the police found her today crawling on the floor on feces and urine. There was no apparent food and apparently she might be eating dog food. Per patient she was not alone and she has had company as well as eating. Patient does have a history of severe paralysis of the lower extremities and cannot ambulate on her own, she has MS which is chronic. Per Pastor act and police report there was noone in the house. She denies any chest pain or shortness of breath. She does appear to be alert and oriented and answers some other questions or properly but there does appear to be some alteration. No allergies to medication. No fevers chills or sweats. No falls per patient. DCF is involved with the case. PFSH Past Medical History Arthritis: Yes Autoimmune Disease: Yes (ms) Anxiety: No Depression: No Cancer: No Cardiovascular Problems: No Chest Pain: No Congestive Heart Failure: No Cerebrovascular Accident: No Diabetes: No Diminished Hearing: No Endocrine: No Genitourinary: No Hiatal Hernia: No Hypertension: Yes Immune Disorder: Yes (ms) Implanted Vascular Access Dvce: Yes Musculoskeletal: Yes Neurologic: Yes (MS) Psychiatric: No Reproductive: No Respiratory: No Migraines: No Seizures: No Thyroid Disease: No Past Surgical History AICD: No Joint Replacement: Yes (right knee) Pacemaker: No Other Surgery: Yes Social History Alcohol Use: Yes Tobacco Use: No Substance Use: No Allergies-Medications (Allergen,Severity, Reaction): Coded Allergies: No Known Allergies (Unverified , 02/24/17) Reported Meds & Prescriptions Reported Meds & Active Scripts Active Morphine ER (Morphine Sulfate) 30 Mg Tab 30 Mg PO BID Hydrocodone-Acetaminophen 10-325 mg Tab 1 Tab PO Q6H PRN Zanaflex (Tizanidine HCl) 4 Mg Tab 2 Mg PO Q6HR PRN 30 Days Polyethylene Glycol 3350 Powder (Polyethylene Glycol) 17 Gm Pow 17 Gm PO DAILY PRN 30 Days Zinc Sulfate 220 Mg Cap 220 Mg PO DAILY [address] (Duloxetine HCl) 60 Mg Capdr 60 Mg PO DAILY 30 Days Propranolol (Propranolol HCl) 60 Mg Tab 60 Mg PO DAILY 30 Days Senna S (Sennosides-Docusate Sodium) 8.6-50 Mg Tab 1 Cap PO HS 30 Days Reported Enema Disposable (Sodium Phosphates) 1 Raven Raven 1 Applic RECTAL DAILY PRN Multiple Vitamin 1 Tab 1 Tab PO DAILY Tylenol (Acetaminophen) 325 Mg Tab 650 Mg PO Q4H PRN Milk of Magnesia Liq (Magnesium Hydroxide) 400 Mg/5 Ml Susp 30 Ml PO HS PRN Dulcolax Supp (Bisacodyl) 10 Mg Supp 10 Mg RECTAL DAILY IN THE MORNING PRN Magnesium Citrate Liq (Magnesium Citrate) 300 Ml Liq 296 Ml PO DAILY IN THE MORNING PRN Baclofen 10 Mg Tab 10 Mg PO TID Gabapentin 100 Mg Cap 200 Mg PO BID Omeprazole 40 Mg Cap 40 Mg PO DAILY Avonex Inj Kit (Interferon Beta 1a) 30 Mcg/0.5 Ml Syr 30 Mcg IM FRIDAY IN AM Review of Systems ROS Limitations: Altered Mental Status Except as stated in HPI: all other systems reviewed are Neg Physical Exam Exam Limitations: Altered Mental Status Narrative GENERAL: SKIN: Warm and dry. HEAD: Atraumatic. Normocephalic. EYES: Pupils equal and round 4mms reactive to light and accomodation. No scleral icterus. No injection or drainage. ENT: No nasal bleeding or discharge. Mucous membranes pink and moist. Tongue is midline. No uvula deviation. NECK: Trachea midline. No JVD. CARDIOVASCULAR: Regular rate and rhythm. No murmurs, S3, S4. RESPIRATORY: No accessory muscle use. Clear to auscultation. Breath sounds equal bilaterally. GASTROINTESTINAL: Abdomen soft, non-tender, nondistended. Hepatic and splenic margins not palpable. MUSCULOSKELETAL: Extremities without clubbing, cyanosis, or edema. No obvious deformities. Full range of motion of the upper extremities, cannot move the lower extremities secondary to severe spasms which is chronic. 2+ pulses bilaterally. NEUROLOGICAL: Awake and alert to person and place. No obvious cranial nerve deficits. Motor grossly within normal limits. Five out of 5 muscle strength in the arms and legs. Normal speech. PSYCHIATRIC: Appropriate mood and affect; insight and judgment normal. Data Data Last Documented VS Vital Signs Date Time Temp Pulse Resp B/P Pulse Ox O2 Delivery O2 Flow Rate FiO2 03/10/17 15:32 Room Air 03/10/17 14:30 98 03/10/17 11:34 132 18 151/91 Orders Electrocardiogram (03/10/17 12:36) Complete Blood Count With Diff (03/10/17 12:36) Comprehensive Metabolic Panel (03/10/17 12:36) Creatine Kinase (Cpk) (03/10/17 12:36) Troponin I (03/10/17 12:36) Prothrombin Time / Inr (Pt) (03/10/17 12:36) Act Partial Throm Time (Ptt) (03/10/17 12:36) Blood Culture (03/10/17 12:36) Lipase (03/10/17 12:36) Urinalysis - C+S If Indicated (03/10/17 12:36) Cath For Specimen (03/10/17 12:36) Thyroid Stimulating Hormone (03/10/17 12:36) Chest, Single Ap (03/10/17 12:36) Ct Brain W/O Iv Contrast(Rout) (03/10/17 12:36) Iv Access Insert/Monitor (03/10/17 12:36) Ecg Monitoring (03/10/17 12:36) Oximetry (03/10/17 12:36) Drug Screen, Random Urine (03/10/17 12:36) Alcohol (Ethanol) (03/10/17 12:36) Lactic Acid Sepsis Protocol (03/10/17 12:36) Sodium Chlor 0.9% 1000 Ml Inj (Ns 1000 M (03/10/17 12:36) Sodium Chlor 0.9% 1000 Ml Inj (Ns 1000 M (03/10/17 15:25) Ceftriaxone Inj (Rocephin Inj) (03/10/17 15:45) CKMB (03/10/17 14:51) CKMB% (03/10/17 14:51) Labs Laboratory Tests Test 03/10/17 03/10/17 14:51 14:52 White Blood Count 9.8 TH/MM3 Red Blood Count 5.87 MIL/MM3 Hemoglobin 13.6 GM/DL Hematocrit 42.4 % Mean Corpuscular Volume 72.2 FL Mean Corpuscular Hemoglobin 23.1 PG Mean Corpuscular Hemoglobin 32.0 % Concent Red Cell Distribution Width 14.5 % Platelet Count 262 TH/MM3 Mean Platelet Volume 9.6 FL Neutrophils (%) (Auto) 68.7 % Lymphocytes (%) (Auto) 20.8 % Monocytes (%) (Auto) 10.1 % Eosinophils (%) (Auto) 0.1 % Basophils (%) (Auto) 0.3 % Neutrophils # (Auto) 6.7 TH/MM3 Lymphocytes # (Auto) 2.0 TH/MM3 Monocytes # (Auto) 1.0 TH/MM3 Eosinophils # (Auto) 0.0 TH/MM3 Basophils # (Auto) 0.0 TH/MM3 CBC Comment DIFF FINAL Differential Comment Prothrombin Time 12.2 SEC Prothromb Time International 1.1 RATIO Ratio Activated Partial 28.2 SEC Thromboplast Time Sodium Level 139 MEQ/L Potassium Level 3.7 MEQ/L Chloride Level 105 MEQ/L Carbon Dioxide Level 23.9 MEQ/L Anion Gap 10 MEQ/L Blood Urea Nitrogen 26 MG/DL Creatinine 0.65 MG/DL Estimat Glomerular Filtration 116 ML/MIN Rate Random Glucose 125 MG/DL Lactic Acid Level 1.7 mmol/L Calcium Level 10.6 MG/DL Total Bilirubin 0.6 MG/DL Aspartate Amino Transf 49 U/L (AST/SGOT) Alanine Aminotransferase 33 U/L (ALT/SGPT) Alkaline Phosphatase 76 U/L Total Creatine Kinase 1202 U/L Creatine Kinase MB 5.8 NG/ML Creatine Kinase MB % 0.5 % Troponin I LESS THAN 0.02 NG/ML Total Protein 9.2 GM/DL Albumin 3.8 GM/DL Lipase 151 U/L Thyroid Stimulating Hormone 0.576 uIU/ML 3rd Gen Ethyl Alcohol Level LESS THAN 3 MG/DL Urine Color YELLOW Urine Turbidity HAZY Urine pH 5.5 Urine Specific [place] 1.032 Urine Protein 30 mg/dL Urine Glucose (UA) NEG mg/dL Urine Ketones 40 mg/dL Urine Occult Blood NEG Urine Nitrite NEG Urine Bilirubin NEG Urine Urobilinogen 2.0 MG/DL Urine Leukocyte Esterase SMALL Urine RBC 7 /hpf Urine WBC 6 /hpf Urine Calcium Oxalate Crystals RARE /hpf Urine Mucus MANY /lpf Microscopic Urinalysis Comment CULT NOT INDICATED Urine Opiates Screen POS Urine Barbiturates Screen NEG Urine Amphetamines Screen NEG Urine Benzodiazepines Screen NEG Urine Cocaine Screen NEG Urine Cannabinoids Screen NEG MDM Medical Decision Making Medical Screen Exam Complete: Yes Emergency Medical Condition: Yes Medical Record Reviewed: Yes Interpretation(s) CBC & BMP Diagram 03/10/17 14:51 CK elevated in the 1000s troponin negative EKG shows sinus tachycardia with no sign of acute ischemia. Read by me and attending. Ua shows possible UTI tox positive for opiates Last Impressions Head CT 03/10/17 1236 Signed Impressions: Service Date/Time: Friday, March 10, 2017 13:19 - CONCLUSION: 1. No acute intracranial abnormality identified. Bryan Pappas MD Chest X-Ray 03/10/17 1236 Signed Impressions: Service Date/Time: Friday, March 10, 2017 13:19 - CONCLUSION: 1. No acute cardiopulmonary findings identified. Bryan Pappas MD Differential Diagnosis Failure to thrive versus cellulitis versus sepsis versus UTI versus urosepsis versus tachycardia versus dehydration Narrative Course 52-year-old female that presents to the ED for evaluation of Pastor act. Patient was properly examined and was found to have signs and symptoms concerning for sepsis. She does have a history of sepsis in the past and she does appear to be highly tachycardic on exam. Her heart rate in the 130s. Patient does appear to be somewhat altered. She does appear to be oriented to person and place. She does answer some questions appropriately but others don' t really make sense. She does smell of feces. PCF is already involved and will come here and talked to the patient. Labs and imaging will be ordered to rule out any sign of acute disease. Patient does appear to be dehydrated on exam. She was given IV fluids. Labs and imaging came back with possible UTI as well as elevated CK likely from dehydration from not taking care of herself. Patient was given 2 L of fluid. Patient was turned ceftriaxone. Patient is still somewhat tachycardic. Recommend admission for further evaluation of the alteration as well as the dehydration. Patient will likely have to be placed again in an assisted living facility as she obviously cannot take care of herself. Again DCF already involved and have come here to see the patient. Case discussed with Dr. Ramos who agrees to admission. Dr. Bills agrees to admission. Sepsis Criteria SIRS Criteria (2 or more): Heart rate over 90 Diagnosis Primary Impression: Failure to thrive in adult Additional Impressions: Rhabdomyolysis Qualified Code: M62.82 - Non-traumatic rhabdomyolysis UTI (urinary tract infection) Qualified Code: N30.00 - Acute cystitis without hematuria Spastic paraplegia Admitting Information Admitting Physician Requests: Admit Naseem Smith Mar 10, 2017 15:07
[2017-03-10 15:27] LABS: AUTOMATED NEUTROPHIL # 6.7 TH/MM3 (1.8-7.7); BASOPHIL % 0.3 % (0.0-2.0); EOSINOPHIL % 0.1 % (0.0-4.0); HEMATOCRIT 42.4 % (35.0-46.0); HEMO FLAGS DIFF FINAL; LYMPH % 20.8 % (9.0-44.0); MEAN CELL VOLUME 72.2 FL (80.0-100.0); MEAN CORPUSCULAR HEMOGLOBIN 23.1 PG (27.0-34.0); MONO % 10.1 % (0.0-8.0); NEUT % 68.7 % (16.0-70.0); PLATELET COUNT 262 TH/MM3 (150-450); RED BLOOD COUNT 5.87 MIL/MM3 (4.00-5.30); RED CELL DISTRIBUTION WIDTH 14.5 % (11.6-17.2); WHITE BLOOD COUNT 9.8 TH/MM3 (4.0-11.0)
[2017-03-10 15:30] LABS: BLOOD, URINE NEG (NEG); CALCIUM OXALATE CRYSTALS,URINE RARE /hpf; COMMENT (UR) CULT NOT INDICATED; CULTURE IF INDICATED CULT NOT INDICATED; GLUCOSE,URINE NEG (NEG); KETONE, URINE 40 mg/dL (NEG); MUCUS URINE MANY /lpf (OCC); NITRITE,URINE NEG (NEG); PH, URINE 5.5 (5.0-8.5); URINE COLOR YELLOW (YELLW/STRAW)
[2017-03-10 15:33] LABS: AMPHETAMINE, URINE NEG (NEG); BARBITURATES, URINE NEG (NEG); COCAINE, URINE NEG (NEG)
[2017-03-10] MEDS ORDERED: ENEMENE5 RECTAL (15:33)
[2017-03-10 15:37] LABS: APTT (PATIENT) 28.2 SEC (24.3-30.1); INTERNATIONAL NORMALIZED RATIO 1.1 RATIO; PROTHROMBIN TIME - PATIENT 12.2 SEC (9.8-11.6)
[2017-03-10] MEDS ORDERED: cefTRIAXone INJ 1,000 MG in SODIUM CHLORIDE 0.9% INJ 100 ML IV ONE (15:45)
[2017-03-10 16:07] LABS: ALKALINE PHOSPHATASE 76 U/L (45-117); CREATINE KINASE 1202 U/L (26-192); TOTAL BILIRUBIN ADULT 0.6 MG/DL (0.2-1.0)
[2017-03-10 16:08] LABS: ALT (GPT) 33 U/L (10-53); ANION GAP 10 MEQ/L (5-15); AST (GOT) 49 U/L (15-37); BICARBONATE 23.9 MEQ/L (21.0-32.0); BLOOD UREA NITROGEN 26 MG/DL (7-18); CHLORIDE 105 MEQ/L (98-107); GLOMERULAR FILTRATION RATE 116 ML/MIN (>89); POTASSIUM 3.7 MEQ/L (3.5-5.1); SODIUM (NA) 139 MEQ/L (136-145)
[2017-03-10 16:20] LABS: CKMB 5.8 NG/ML (0.5-3.6)
[2017-03-10] MEDS ORDERED: NALOXONE HCL 0.4 MG/ML AMP IV PRN (20:15)
[2017-03-10] MEDS ORDERED: ZOLPIDEM TARTRATE 5 MG TAB PO PRN (20:15)
[2017-03-10] MEDS ORDERED: SENNOSIDES 8.6 MG TAB PO PRN (20:15)
[2017-03-10] MEDS ORDERED: MAGNESIUM HYDROXIDE SUSP 30 ML CUP PO PRN (20:15)
[2017-03-10] MEDS ORDERED: SODIUM CHLORIDE 0.9% FLUSH 10 ML FLUSH IV FLUSH PRN (20:15)
[2017-03-10] MEDS ORDERED: ONDANSETRON HCL 4 MG/2 ML VIAL IVP PRN (20:15)
[2017-03-10] MEDS ORDERED: LACTULOSE SYRUP 20 GM/30 ML CUP PO PRN (20:15)
[2017-03-10] MEDS ORDERED: BISACODYL 10 MG SUPP RECTAL PRN (20:15)
[2017-03-10] MEDS ORDERED: ACETAMINOPHEN 325 MG TAB PO PRN (20:15)
[2017-03-10 20:18] VITALS: BP 137/71; PULSE 113; RESP 20; O2SAT 98
[2017-03-10] MEDS ORDERED: cloNIDine HCL 0.1 MG TAB PO PRN (20:30)
[2017-03-10] MEDS ORDERED: ENALAPRILAT 2.5 MG/2 ML VIAL IV PUSH PRN (20:30)
[2017-03-10 20:32] VITALS: O2SAT 98
[2017-03-10] MEDS: SODIUM CHLOR 0.9% 1000 ML INJ 1,000 ML IV SCH (20:57)
[2017-03-10] MEDS: DOCUSATE SODIUM 50 MG/SENNA 8.6 MG TAB PO SCH (22:14)
[2017-03-10] MEDS: SODIUM CHLORIDE 0.9% FLUSH 10 ML FLUSH IV FLUSH SCH (22:14)
[2017-03-10] MEDS: ENOXAPARIN SODIUM 40 MG/0.4 ML SYRINGE SQ SCH (22:15)
[2017-03-10] MEDS: MORPHINE SULFATE 30 MG CONTROLLED RELEASE TAB PO SCH (22:20)
[2017-03-10] MEDS: GABAPENTIN 100 MG CAP PO SCH (22:24)
[2017-03-10 23:27] VITALS: BP 147/82; PULSE 114; RESP 22; TEMP 99.3; O2SAT 98
[2017-03-11] VITALS (7 sets, daily range): BP systolic 116–186; BP diastolic 66–87; PULSE 54–130; RESP 16–22; TEMP 97.5–99.8; O2SAT 96–100
[2017-03-11] MEDS: ACETAMINOPHEN/HYDROcodone 325 MG/10 MG TAB PO PRN (03:59)
[2017-03-11] MEDS: LORazepam 0.5 MG TAB PO PRN ×2 (05:13→17:11)
[2017-03-11] MEDS: SODIUM CHLOR 0.9% 1000 ML INJ 1,000 ML IV SCH ×3 (07:59→22:36)
[2017-03-11] MEDS: DOCUSATE SODIUM 50 MG/SENNA 8.6 MG TAB PO SCH ×2 (09:00→22:35)
[2017-03-11] MEDS: SODIUM CHLORIDE 0.9% FLUSH 10 ML FLUSH IV FLUSH SCH ×2 (09:00→22:36)
--- NOTE | 2017-03-11 09:38 | MH ---
cc: PREETI MARIE MD, DAVID DATE OF ADMISSION: 03/10/2017 CHIEF COMPLAINT Weakness and Pastor acted HISTORY OF PRESENT ILLNESS Denia Anaya is a 52-year-old -[place] female. Unfortunately she has had a progression of her multiple sclerosis. She has had numerous recurrent hospitalizations at [facility] and here at [place]. She most recently was under skill nursing at [facility]. She ended up going home for and apparently was left there on her own, she is total care due to her contractures from her multiple sclerosis. She was found lying in her own excrement. The patient was subsequently transferred to the emergency room. DCF is reportedly involved. The patient was found to have severe rhabdomyolysis and sinus tachycardia with urinary tract infection On initial urinalysis. She was initiated under the sepsis protocol by the emergency room physician and she was found to have altered mental status. In addition and she was given IV fluids. She was started on intravenous Rocephin and I was subsequently called for admission for rhabdomyolysis. Likely urosepsis and progression of multiple sclerosis with failure to thrive. LABORATORY DATA MCV 72.2, INR 1.1. Creatine kinase 1202. CK MBs 5.8, BUN 26, Urine toxicology shows positive opiates. Urinalysis shows protein, ketones and leukocyte esterase. HOME MEDICATIONS medications are 1. MS Contin. 2. [place] 10 mg p.r.n. 3. Zanaflex. 4. MiraLax 5. ZINC. 6. Cymbalta 60 mg. 7. Propranolol. 8. Senna S. 9. Baclofen 10 mg t.i.d. 10. Gabapentin 200 b.i.d. 11. Omeprazole 12. Avonex intramuscular q. . PAST MEDICAL HISTORY 1. Multiple sclerosis 2. Contractures of the legs 3. Chronic pain syndrome. PAST SURGICAL HISTORY 1. Right total knee replacement 2. Hamstring contracture releases SOCIAL HISTORY Previous history of cannabis use for medicinal reasons for MS. No alcohol or other illicit drug usage. No tobaccoism. She has a [employer] graduate and had has been disabled for quite some time due to MS ALLERGIES NO KNOWN DRUG ALLERGIES. REVIEW OF SYSTEMS Altered mental status increased weakness with increased contractures and negative 14-point review of systems otherwise as the patient is agitated and with increased altered mental status and now is combative. PHYSICAL EXAMINATION VITAL SIGNS: Vitals are temperature 98.5, pulse 129, respirations 20, blood pressure 151/76, pulse 97% on room air. IN GENERAL: She is an alert -[place] female. She is tearful on examination and becomes combative. She otherwise is able to give a history when apleased. HEAD, EYES, EARS, NOSE, AND THROAT: Oropharynx is dry, overall clear with poor dentition, carotids are clear. No JVD. NECK: Neck is supple. No lymphadenopathy. CHEST: Clear. No wheezes, rales, crackles or coughing. CARDIOVASCULAR SYSTEM: Regular. Yet tachycardiac. No murmurs, rubs, clicks or gallops. ABDOMEN: Soft, nontender. No rebound or guarding. No masses. EXTREMITIES: She has contractures in her upper and lower extremities. She has severe ankle contractures and her hamstrings are in contraction as well. She has some discoloration and her ankles as her feet were completely inverted and not discolored. She has good pulses bilaterally in the lower extremities. Good capillary refill. ASSESSMENT: 1. Altered mental status due to metabolic encephalopathy secondary to rhabdomyolysis. 2. Tachycardia secondary to dehydration and/or urosepsis. 3. Multiple sclerosis. 4. Failure to thrive. 5. Contractures. 6. Hyperglycemia. 7. Hypercalcemia. PLAN: 1. Normal saline IV fluids. 2. Regular diet. 3. Rocephin 1 gram IV q.24 h 4. [place] 10 mg which is her home dose p.r.n. 5. Baclofen 10 t.i.d. 6. Cymbalta 60 mg daily. 7. Lovenox 40 daily for DVT prophylaxis 8. Neurontin 200 b.i.d. 9. Ativan as needed severe anxiety. 10. MS Contin 30 mg b.i.d. 11. Protonix 40 p.o. daily for GI prophylaxis. 12. Restart Inderal 60 mg daily. 13. Zanaflex p.r.n. for spasticity 14. Blood cultures 15. BRENDA adorno 16. PT 17. OT 18. Consult Dr. Costello as she is known to him. 19. Consult Psychiatry. 20. Observation admission. Preeti Marie MD RP/harish /8:42 AM /9:22 AM
[2017-03-11] MEDS: DULoxetine HCl DR 60 MG CAP PO SCH (10:05)
[2017-03-11] MEDS: BACLOFEN 10 MG TAB PO SCH ×3 (10:05→17:11)
[2017-03-11] MEDS: PROPRANOLOL HCL 20 MG TAB PO SCH (10:05)
[2017-03-11] MEDS: GABAPENTIN 100 MG CAP PO SCH ×2 (10:05→22:36)
[2017-03-11] MEDS: MORPHINE SULFATE 30 MG CONTROLLED RELEASE TAB PO SCH ×2 (10:05→22:35)
[2017-03-11] MEDS: PANTOPRAZOLE SOD 40 MG DELAYED RELEASE TAB PO SCH (10:05)
--- NOTE | 2017-03-11 12:56 | PD.CONS ---
Provisional Diagnosis Admission Date Mar 10, 2017 at 17:02 [place] I. Delirium due to underlying medical condition, adjustment disorder with depressed mood [place] II. Deferred [place] III. MS History of Present Illness Service Psychiatry Consult Requested By Primary Care Physician Luis Bills MD HPI The patient is a 52-year-old woman, single, unemployed, domiciled alone, without any previous psychiatric history, no previous psychiatric hospitalizations, no previous suicidal attempts, medical history of MS, multiple medical hospitalizations, who presents to the ED for evaluation of Pastor act. Patient was Pastor acted by police after apparently DCF and police were contacted to check on the patient. Patient apparently sign out herself from the assisted living facility on Friday and she was supposed to go back that same day but she never made it back. Apparently per Pastor act the police found her today crawling on the floor on feces and urine and acting very bizarrely. There was no apparent food and apparently she might be eating dog food. Per patient she was not alone and she has had company as well as eating. Patient does have a history of severe paralysis of the lower extremities and cannot ambulate on her own, she has MS which is chronic. Per Pastor act and police report there was no in the house. As per nursing in charge Emilie, after her arrival to the ER patient has had periods of combative behavior, disorganization, she has been yelling, no making any sense, acting paranoid, stating the nurses wanted to kill her, but in the last hours she has been actually oriented and much better. On psychiatric evaluation today patient was found in her bed, she was calm, cooperative, in a good spirit, but very malodorous and disheveled, patient reports good mood, she denies depressive symptoms, she would not elaborate about the reason of her hospitalization. She seems to have periods of confusion alternate with lucidity. She denies suicidal and homicidal ideation, she denies visual and auditory hallucinations. During this evaluation the patient is logical, coherent, relevant, oriented 3 , she knows was the car refinisher, he is able to make a political comment. She seems to be insightful about her MS condition. At times she seems to be distant, guarded and confused. But she is easily redirectable. No agitation, no aggressive behavior, no hostility, no paranoia, no obsessions or psychosis in general are present during this evaluation. Review of Systems Constitutional: DENIES: Diaphoretic episodes, Fatigue, Fever, Weight gain, Weight loss, Chills, Dizziness, Change in appetite, Night Sweats Endocrine: DENIES: Abnorml menstrual pattern, Heat/cold intolerance, Polydipsia , Polyuria, Polyphagia Eyes: DENIES: Blurred vision, Diplopia, Eye inflammation, Eye pain, Vision loss , Photosensitivity, Double Vision Ears, nose, mouth, throat: DENIES: Tinnitus, Hearing loss, Vertigo, Nasal discharge, Oral lesions, Throat pain, Hoarseness, Ear Pain, Running Nose, Epistaxis, Sinus Pain, Toothache, Odynophagia Respiratory: DENIES: Apneas, Cough, Snoring, Wheezing, Hemoptysis, Sputum production, Shortness of breath Cardiovascular: DENIES: Chest pain, Palpitations, Syncope, Dyspnea on Exertion , PND, Lower Extremity Edema, Orthopnea, Claudication Gastrointestinal: DENIES: Abdominal pain, Black stools, Bloody stools, Constipation, Diarrhea, Nausea, Vomiting, Difficulty Swallowing, Anorexia Musculoskeletal: DENIES: Joint pain, Muscle aches, Stiffness, Joint Swelling, Back pain, Neck pain Integumentary: DENIES: Abnormal pigmentation, Pruritus, Rash, Nail changes, Breast masses, Breast skin changes, Nipple discharge Hematologic/lymphatic: DENIES: Bruising, Lymphadenopathy Immunologic/allergic: DENIES: Eczema, Urticaria Neurologic: DENIES: Abnormal gait, Headache, Localized weakness, Paresthesias, Seizures, Speech Problems, Tremor, Poor Balance Psychiatric: DENIES: Anxiety, Confusion, Mood changes, Depression, Hallucinations, Agitation, Suicidal Ideation, Homicidal Ideation, Delusions Past Family Social History Coded Allergies: No Known Allergies (Unverified , 02/24/17) Active Scripts Morphine ER 30 Mg Tab30 Mg PO BID #60 TAB Ref 0 Prov:Renetta Mcclain MD R3 02/02/17 Hydrocodone-Acetaminophen 10-325 mg Tab1 Tab PO Q6H PRN (PAIN SCALE 4 TO 10) # 90 TAB Ref 0 Prov:Lety Mccollum MD 12/12/16 Tizanidine (Zanaflex)4 Mg Tab2 Mg PO Q6HR PRN (Spasticity) 30 Days Prov:Tess Minaya 12/12/16 Polyethylene Glycol 3350 Powder 17 Gm Pow17 Gm PO DAILY PRN (constipation) 30 Days Ref 1 Prov:Tess Minaya 12/12/16 Zinc Sulfate 220 Mg Pbd425 Mg PO DAILY 30 Days Ref 1 Prov:Tess Minaya 12/12/[address] 60 Mg Capdr60 Mg PO DAILY 30 Days Ref 1 Prov:Tess Minaya 12/12/16 Propranolol 60 Mg Tab60 Mg PO DAILY 30 Days Ref 1 Prov:Tess MinayaP 12/12/16 Sennosides-Docusate Sodium (Senna S)8.6-50 Mg Tab1 Cap PO HS 30 Days Ref 1 Prov:Tess Minaya 12/12/16 Reported Medications Sodium Phosphates (Enema Disposable)1 Rvaen Ene1 Applic RECTAL DAILY PRN (if no BM x1 day after supp) 03/10/17 Multiple Vitamin 1 Tab1 Tab PO DAILY 02/24/17 Acetaminophen (Tylenol)325 Mg Eyl782 Mg PO Q4H PRN (PAIN SCALE 1 TO 10) Ref 0 02/24/17 Magnesium Hydroxide Liq (Milk of Magnesia Liq)400 Mg/5 Ml Susp30 Ml PO HS PRN ( IF NO BM WITHIN 3 DAYS) #1 BOTTLE Ref 0 01/30/17 Bisacodyl Supp (Dulcolax Supp)10 Mg Supp10 Mg RECTAL DAILY IN THE MORNING PRN ( I NO BM x1 DAY AFTER MOM) #12 SUPP Ref 0 01/30/17 Magnesium Citrate Liq 300 Ml Owd931 Ml PO DAILY IN THE MORNING PRN (IF NO BM FROM FLEETS) Ref 0 01/30/17 Baclofen 10 Mg Tab10 Mg PO TID Ref 0 01/30/17 Gabapentin 100 Mg Tud084 Mg PO BID #60 CAP Ref 0 01/30/17 Omeprazole 40 Mg Cap40 Mg PO DAILY #30 CAP Ref 0 01/30/17 Interferon Beta-1A Inj Kit (Avonex Inj Kit)30 Mcg/0.5 Ml Syr30 Mcg IM FRIDAY IN AM Ref 0 01/30/17 Discontinued Reported Medications Sodium Phosphates Rectal (Fleet Enema Rectal)7-19 Gm/118 Ml Vsil220 Ml RECTAL DAILY PRN (IF NO BM x1 DAY AFTER SUPP) Ref 0 01/30/17 Current Medications Medications (Trade) Dose Ordered Sig/Raffi Route Start Time Stop Time Status Last Admin (NS 1000 ml Inj) 1,000 ml @ 100 mls/hr Q10H IV 03/10/17 20:15 03/11/17 07:59 (NS Flush) 2 ml UNSCH PRN IV FLUSH 03/10/17 20:15 (NS Flush) 2 ml BID IV FLUSH 03/10/17 21:00 (Tylenol) 650 mg Q4H PRN PO 03/10/17 20:15 (Zofran Inj) 4 mg Q6H PRN IVP 03/10/17 20:15 (Ambien) 5 mg HS PRN PO 03/10/17 20:15 (Lovenox Inj) 40 mg Q24H SQ 03/10/17 21:00 (Narcan Inj) 0.4 mg UNSCH PRN IV 03/10/17 20:15 (Heather-Colace) 1 tab BID PO 03/10/17 21:00 (Milk Of Magnesia Liq) 30 ml Q12H PRN PO 03/10/17 20:15 (Senokot) 17.2 mg Q12H PRN PO 03/10/17 20:15 (Dulcolax Supp) 10 mg DAILY PRN RECTAL 03/10/17 20:15 (Lactulose Liq) 30 ml DAILY PRN PO 03/10/17 20:15 (Lioresal) 10 mg TID PO 03/11/17 09:00 03/11/17 10:05 (Cymbalta Dr) 60 mg DAILY PO 03/11/17 09:00 03/11/17 10:05 (Neurontin) 200 mg BID PO 03/10/17 21:00 03/11/17 10:05 (Excello 10-325 Mg) 1 tab Q6H PRN PO 03/10/17 20:30 03/11/17 03:59 (Oramorph Sr) 30 mg BID PO 03/10/17 21:00 03/11/17 10:05 (Zanaflex) 2 mg Q6HR PRN PO 03/10/17 20:30 (Protonix) 40 mg DAILY PO 03/11/17 09:00 03/11/17 10:05 (Inderal) 60 mg DAILY PO 03/11/17 09:00 03/11/17 10:05 (Ativan) 0.5 mg Q8H PRN PO 03/10/17 20:30 03/11/17 05:13 (Catapres) 0.1 mg Q6H PRN PO 03/10/17 20:30 Enalaprilat 2.5 mg 2.5 mg Q6H PRN IV PUSH 03/10/17 20:30 03/11/17 12:11 (Rocephin Inj/NS Inj) 100 ml @ 200 mls/hr Q24H IV 03/11/17 17:00 Family History Patient denies psychiatric family history Social History Patient was born and raised in [facility], she is single, unemployed, she lives alone in [place], her highest level of education is some college Physical Exam Vital Signs Vital Signs Date Time Temp Pulse Resp B/P Pulse Ox O2 Delivery O2 Flow Rate FiO2 03/11/17 12:04 107 20 186/87 96 03/11/17 07:50 98.5 03/10/17 20:18 Room Air Lab Results Laboratory Tests Test 03/10/17 03/10/17 14:51 14:52 White Blood Count 9.8 TH/MM3 Red Blood Count 5.87 MIL/MM3 Hemoglobin 13.6 GM/DL Hematocrit 42.4 % Mean Corpuscular Volume 72.2 FL Mean Corpuscular Hemoglobin 23.1 PG Mean Corpuscular Hemoglobin 32.0 % Concent Red Cell Distribution Width 14.5 % Platelet Count 262 TH/MM3 Mean Platelet Volume 9.6 FL Neutrophils (%) (Auto) 68.7 % Lymphocytes (%) (Auto) 20.8 % Monocytes (%) (Auto) 10.1 % Eosinophils (%) (Auto) 0.1 % Basophils (%) (Auto) 0.3 % Neutrophils # (Auto) 6.7 TH/MM3 Lymphocytes # (Auto) 2.0 TH/MM3 Monocytes # (Auto) 1.0 TH/MM3 Eosinophils # (Auto) 0.0 TH/MM3 Basophils # (Auto) 0.0 TH/MM3 CBC Comment DIFF FINAL Differential Comment Prothrombin Time 12.2 SEC Prothromb Time International 1.1 RATIO Ratio Activated Partial 28.2 SEC Thromboplast Time Sodium Level 139 MEQ/L Potassium Level 3.7 MEQ/L Chloride Level 105 MEQ/L Carbon Dioxide Level 23.9 MEQ/L Anion Gap 10 MEQ/L Blood Urea Nitrogen 26 MG/DL Creatinine 0.65 MG/DL Estimat Glomerular Filtration 116 ML/MIN Rate Random Glucose 125 MG/DL Lactic Acid Level 1.7 mmol/L Calcium Level 10.6 MG/DL Total Bilirubin 0.6 MG/DL Aspartate Amino Transf 49 U/L (AST/SGOT) Alanine Aminotransferase 33 U/L (ALT/SGPT) Alkaline Phosphatase 76 U/L Total Creatine Kinase 1202 U/L Creatine Kinase MB 5.8 NG/ML Creatine Kinase MB % 0.5 % Troponin I LESS THAN 0.02 NG/ML Total Protein 9.2 GM/DL Albumin 3.8 GM/DL Lipase 151 U/L Thyroid Stimulating Hormone 0.576 uIU/ML 3rd Gen Ethyl Alcohol Level LESS THAN 3 MG/DL Urine Color YELLOW Urine Turbidity HAZY Urine pH 5.5 Urine Specific [place] 1.032 Urine Protein 30 mg/dL Urine Glucose (UA) NEG mg/dL Urine Ketones 40 mg/dL Urine Occult Blood NEG Urine Nitrite NEG Urine Bilirubin NEG Urine Urobilinogen 2.0 MG/DL Urine Leukocyte Esterase SMALL Urine RBC 7 /hpf Urine WBC 6 /hpf Urine Calcium Oxalate Crystals RARE /hpf Urine Mucus MANY /lpf Microscopic Urinalysis Comment CULT NOT INDICATED Urine Opiates Screen POS Urine Barbiturates Screen NEG Urine Amphetamines Screen NEG Urine Benzodiazepines Screen NEG Urine Cocaine Screen NEG Urine Cannabinoids Screen NEG Mental Status Examination Appearance Skinny, disheveled, malodorous woman, age appearing, acute chronically ill apparent, she is calm, cooperative, Speech: Unremarkable Orientation: x3 Memory: Unremarkable Thought Process: Logical, Loose Association Thought Content: Unremarkable Hallucination Type: None Attention and Concentration: Abnormal Suicidal Ideation: No Previous Suicide Attempts: No Homicidal Ideation: No Previous Homicide Attempts: No Insight: Fair Affect: Good Mood: Appropriate Motor Activity: Abnormal gait-specify Assessment & Plan Problem List: (1) Delirium due to another medical condition Assessment & Plan: At the moment of this psychiatric evaluation the patient does not present any symptomatology of objective or subjective depression, anxiety, muna or psychosis. The patient denies suicidal or homicidal ideation , she denies visual and auditory hallucinations. No paranoia, no agitation, no aggressive behavior, obsession, flight of ideas or delusions of reference observed at the moment of the evaluation. She has been allegedly disorganized, acting bizarre, disoriented, verbally hostile hours ago. These describe neuropsychiatric symptoms could be secondary to underlying medical conditions such as MS or urinary tract infection. Brain MRI and neurology consult recommended. UTI already in treatment with ceftriaxone. Patient does not meet criteria for psychiatric admission at this moment. Extensive support, motivation psycho education provided. Pastor at will be lifted. ICD Code: F05 Assessment & Plan Estimated LOS: Davonte Kumar MD Mar 11, 2017 12:56
[2017-03-11] MEDS: cefTRIAXone INJ 1,000 MG in SODIUM CHLORIDE 0.9% INJ 100 ML IV SCH (16:34)
--- NOTE | 2017-03-11 17:06 | EKG ---
Date Performed: 03/10/2017 Time Performed: 12:37:03 PTAGE: 52 years EKG: SINUS TACHYCARDIA LEFT VENTRICULAR HYPERTROPHY AND ST-T CHANGE BASELINE ARTIFACT Likely no significant change. ABNORMAL ECG PREVIOUS TRACING : 01/30/2017 19.54 DOCTOR: Nahomy Hurtado Interpretating Date/Time 03/11/2017 17:04:22
--- NOTE | 2017-03-11 17:08 | MB ---
cc: WILIAN MERRILL M.D. DATE OF CONSULTATION 03/11/2017 REASON FOR CONSULTATION She is a 52-year-old seen in neurological consultation in regards to multiple sclerosis. HISTORY The patient is major handicapped, presumably from multiple sclerosis. She reportedly lives in the nursing facility and was taken home to spend Father's Day at home. She apparently was found by herself and laying on feces and urine. She was brought to the hospital. Unclear if she has been on any medication for MS or not. A CT brain was negative for acute process. She might be known to my associate Dr. Costello. MEDICATIONS The list of medications include: 1. MS Contin. 2. [place]. 3. Zanaflex. 4. MiraLax. 5. Cymbalta. 6. Propranolol. 7. Baclofen. 8. Gabapentin. 9. Omeprazole. 10. Avonex once a week. There is a history of chronic back pain. PHYSICAL EXAMINATION The exam shows the patient to be asleep and when awakened and she became agitated, uncooperative and that is the way she has been in the hospital according to the staff. She is screaming when I try to examine her, she will not follow simple commands, she would not open the eyes and I could not see the disks as she closed the eyes strongly. I could not even see the pupils well. She is obviously severely spastic in the lower extremities, in a position with the hips flexed, knees flexed and ankles also flexed strongly. As I attempted to do some range of motion she started screaming and asking me to go away. She may be having more flexibility with the right than left upper extremity, but this is difficult to be sure. She only answered to me that she was about 43 when I inquired about age. She seemed to know the year she was born, initially said 61 and then she is switch it to 67. LABORATORY DATA Laboratory data reviewed. WBC 9.8, hemoglobin 13.6, platelets 262. Positive opiates in the urine, otherwise negative urine toxicology. Sodium, potassium normal. BUN 26, creatinine 0.65, glucose 125, CPK 1202. ASSESSMENT Acute and chronic encephalopathy. 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 Possible sepsis. Rhabdomyolysis. She is on Rocephin and she needs continuing medical care. Neurologic ch no other intervention at this point. Could continue Avonex though doubt of any benefit at this stage, for the multiple sclerosis. It seems that she follows with my associate Dr. Costello. She is on pain killers which certainly could be worsening her encephalopathy and the goal would be to reduce medications that reach her brain such as [place], Cymbalta, MS Contin. Thank you for asking us to assist in her care. MD REBECCA Cheung/KK /2:15 PM /4:49 PM
--- NOTE | 2017-03-11 20:15 | HHI.HP ---
History of Present Illness Primary Care Physician Luis Bills MD Admission Diagnosis rhabdomyolysis, UTI, altered mental status, [place] Diagnoses: Past Family Social History Allergies: Coded Allergies: No Known Allergies (Unverified , 02/24/17) Physical Exam Vital Signs Vital Signs Date Time Temp Pulse Resp B/P Pulse Ox O2 Delivery O2 Flow Rate FiO2 03/11/17 17:11 99.8 113 130/66 97 03/11/17 13:51 101 20 124/72 97 03/11/17 12:04 107 20 186/87 96 03/11/17 07:50 98.5 129 20 151/76 97 03/11/17 06:11 18 03/11/17 03:51 98.1 130 22 119/77 96 03/10/17 23:27 99.3 114 22 147/82 98 03/10/17 20:32 98 03/10/17 20:18 113 20 137/71 98 Room Air Physical Exam GENERAL: This is a well-nourished, well-developed patient, in no apparent distress. SKIN: No rashes, ecchymoses or lesions. Cool and dry. HEAD: Atraumatic. Normocephalic. No temporal or scalp tenderness. EYES: Pupils equal round and reactive. Extraocular motions intact. No scleral icterus. No injection or drainage. ENT: Nose without bleeding, purulent drainage or septal hematoma. Throat without erythema, tonsillar hypertrophy or exudate. Uvula midline. Airway patent. NECK: Trachea midline. No JVD or lymphadenopathy. Supple, nontender, no meningeal signs. CARDIOVASCULAR: Regular rate and rhythm without murmurs, gallops, or rubs. RESPIRATORY: Clear to auscultation. Breath sounds equal bilaterally. No wheezes , rales, or rhonchi. GASTROINTESTINAL: Abdomen soft, non-tender, nondistended. No hepato-splenomegaly , or palpable masses. No guarding. MUSCULOSKELETAL: Extremities without clubbing, cyanosis, or edema. No joint tenderness, effusion, or edema noted. No calf tenderness. Negative Homans sign bilaterally. NEUROLOGICAL: Awake and alert. Cranial nerves II through XII intact. Motor and sensory grossly within normal limits. Five out of 5 muscle strength in all muscle groups. Normal speech. Laboratory Date/Time Procedure Status Source Growth 03/10/17 15:01 Aerobic Blood Culture - Preliminary Resulted Blood Peripheral NO GROWTH IN 1 DAY 03/10/17 15:01 Anaerobic Blood Culture - Preliminary Resulted Blood Peripheral NO GROWTH IN 1 DAY Result Diagram: 03/10/17 1451 03/10/17 1451 Assessment and Plan Assessment and Plan pt HAS BEEN OBS FOR ONE MN. SHE MEETS INPT CRITERIA OUTLINENED IN MY HISTORY AND PHYSICAL. SHE WILL REQUIRE AT LEAST TWO MORE MIDNIGHTS FOR A/P NOTED AND WILL NEED PLACEMENT. PT WOULD IF DISCHARGED HOME. Luis Bills MD Mar 11, 2017 20:15
[2017-03-11] MEDS: ENOXAPARIN SODIUM 40 MG/0.4 ML SYRINGE SQ SCH (22:35)
[2017-03-12] VITALS (8 sets, daily range): BP systolic 98–152; BP diastolic 53–87; PULSE 64–130; RESP 17–22; TEMP 96.9–101.4; O2SAT 97–98
[2017-03-12 08:15] LABS: BICARBONATE 18.6 MEQ/L (21.0-32.0); POTASSIUM 3.1 MEQ/L (3.5-5.1)
[2017-03-12 08:57] LABS: CKMB 4.4 NG/ML (0.5-3.6)
[2017-03-12] MEDS: GABAPENTIN 100 MG CAP PO SCH ×2 (09:14→21:00)
[2017-03-12] MEDS: BACLOFEN 10 MG TAB PO SCH ×3 (09:14→18:00)
[2017-03-12] MEDS: DULoxetine HCl DR 60 MG CAP PO SCH (09:14)
[2017-03-12] MEDS: MORPHINE SULFATE 30 MG CONTROLLED RELEASE TAB PO SCH ×3 (09:15→23:41)
[2017-03-12] MEDS: PANTOPRAZOLE SOD 40 MG DELAYED RELEASE TAB PO SCH (09:16)
[2017-03-12] MEDS: PROPRANOLOL HCL 20 MG TAB PO SCH (09:16)
[2017-03-12] MEDS: DOCUSATE SODIUM 50 MG/SENNA 8.6 MG TAB PO SCH ×2 (09:16→21:00)
--- NOTE | 2017-03-12 09:37 | HHI.FPPN ---
Subjective Remarks LLE EDEMA AND BLISTER NO PARTICIPATION W THERAPY D/W RN D/W P.T. Objective Vitals Vital Signs Date Time Temp Pulse Resp B/P Pulse Ox O2 Delivery O2 Flow Rate FiO2 03/12/17 08:00 101.4 130 22 145/87 97 03/12/17 00:00 98.4 64 18 128/67 98 03/11/17 23:26 18 03/11/17 17:11 99.8 113 130/66 97 03/11/17 13:51 101 20 124/72 97 03/11/17 12:04 107 20 186/87 96 I/O 03/11/17 03/11/17 03/11/17 03/12/17 03/12/17 03/12/17 07:00 15:00 23:00 07:00 15:00 23:00 Intake Total 100 ml 50 ml Output Total 500 ml Balance -400 ml 50 ml Intake Oral 100 ml 50 ml Output Urine Total 500 ml Result Diagram: 03/10/17 1451 03/12/17 0525 Objective Remarks GENERAL: SKIN: Warm and dry. HEAD: Atraumatic. Normocephalic. EYES: Pupils equal and round. No scleral icterus. No injection or drainage. ENT: No nasal bleeding or discharge. Mucous membranes pink and moist. NECK: Trachea midline. No JVD. CARDIOVASCULAR: Regular rate and rhythm. RESPIRATORY: No accessory muscle use. Clear to auscultation. Breath sounds equal bilaterally. GASTROINTESTINAL: Abdomen soft, non-tender, nondistended. Hepatic and splenic margins not palpable. MUSCULOSKELETAL: bilateral upper and lower extremity severe contractures. LLE with 2 plus edema, good pulses, blister LLE, erthema mid and proximal foot left NEUROLOGICAL: Awake and alert. No obvious cranial nerve deficits. Motor grossly within normal limits. 1 out of 5 muscle strength in the arms and legs. Normal speech. PSYCHIATRIC: Appropriate mood and affect; insight and judgment normal. A/P Assessment and Plan ASSESSMENT: -Altered mental status due to metabolic encephalopathy secondary to rhabdomyolysis. -Tachycardia secondary to dehydration and/or urosepsis. -Rhabdo due to ischemic LLE due to contractures and being down in her apartment -Multiple sclerosis. -Failure to thrive. -Contractures with resultant ischemic LLE and LLE blister -Hyperglycemia. -Hypercalcemia. -Hypokalemia. PLAN: 1. d5 1/2 w K and bicarb 2. Regular diet. 3. Rocephin 1 gram IV q.24 h 4. Locke 10 mg which is her home dose p.r.n. 5. Baclofen 10 t.i.d. 6. Cymbalta 60 mg daily. 7. Lovenox 40 daily for DVT prophylaxis 8. Neurontin 200 b.i.d. 9. Ativan as needed severe anxiety. 10. MS Contin 30 mg b.i.d. 11. Protonix 40 p.o. daily for GI prophylaxis. 12. Restart Inderal 60 mg daily. 13. Zanaflex p.r.n. for spasticity 14. Blood cultures 15. BRENDA vijaye 16. PT - contractures stretching 17. OT 18. Consult Dr. Costello as she is known to him. 19. Consult Psychiatry. 20. Palliative consult, obviously needs hospice. Luis Bills MD Mar 12, 2017 09:37
[2017-03-12] MEDS: SODIUM CHLORIDE 0.9% FLUSH 10 ML FLUSH IV FLUSH SCH ×2 (10:00→21:00)
[2017-03-12] MEDS ORDERED: D5-NS + KCL 20 MEQ INJ 1,000 ML IV SCH (10:00)
[2017-03-12] MEDS ORDERED: D5-1/2 NS + KCL 20 MEQ INJ 1,000 ML IV SCH (10:15)
--- NOTE | 2017-03-12 11:33 | PD.CONS ---
Consult Service Palliative Care . Consult Requested By Dr. Bills . Primary Care Physician Luis Bills MD . Reason for Consultation a. To assist with evaluation and management of symptoms including: debility , pain, altered mental status b. To assist medical decision maker(s) with: better understanding of current medical conditions; weighing benefits/burdens of medical treatment options; making medical treatment decisions. . HPI History of Present Illness Ms. Anaya is a 52-year-old female who presented to [facility] ED on 03/10/2017 as a Pastor act. She has a past medical history that is significant for multiple sclerosis, chronic pain syndrome, contractures , hypertension and osteoarthritis. Per report, the patient asked on a AUNG on Friday03/08/2017 via medical transport with her family. She was supposed to the back that evening but did not return. At that time, [facility] (who is reportedly involved) and the police were contacted to check on her. The police report indicates Mrs. Anaya was found lying on the floor covered in feces, urine and vomit. There was no one else present, but the patient insisted she was not alone. There was concern the patient had been eating dog food to survive because no food was found in the home. The patient has had progression of her multiple sclerosis with multiple recurrent hospitalizations at [facility] as well as [facility]. Patient resides at [facility]. The patient is nonambulatory and completely dependent for care. Additional diagnostic findings while in the ED included: * Vital signs: Pulse 132, respirations 18, BP 151/91, oxygen saturation 100% on room air, oral temperature 99.3 * WBC: 9.8, hemoglobin 13.6, hematocrit 42.4, platelets 262, neutrophils 68.7% * Sodium: 139, potassium 3.7, chloride 105, carbon dioxide 23.9, random glucose 125, calcium 10.6 * BUN: 26, creatinine 0.65, GFR 116 * Lactic acid: 1.7 total bilirubin: 0.6, AST 49, ALT 33, alkaline phosphatase 76 * Total creatine kinase: 1202, CK-MB 5.8, CK-MB % 0.5 * Troponin: <0.02 * Total protein: 9.2, albumin 3.8 * Lipase: 151 * PT: 12.2, INR 1.1, APTT 28.2 * Toxicology: + urine opiates screen * Urinalysis-possible UTI * Blood culture pending * CT head showed no acute intracranial abnormalities * Chest x-ray revealed no acute cardiopulmonary findings. * EKG shows sinus tachycardia with no signs of acute ischemia Patient was tachycardic with signs and symptoms concerning for sepsis. Labs and imaging revealed possible UTI as well as elevated CK likely secondary to dehydration. She received 2 L of IVF and was started on IV Rocephin. Patient was subsequently admitted for further evaluation and medical management. [facility] is already involved and will continue to follow this patient. Ms. Anaya currently resides at at [facility] and will likely return upon discharge. Psychiatry was consulted and Dr. Paez evaluated the patient. Pastor act lifted 03/11/17. Per nursing report the patient initially had periods of combativeness, disorganization, paranoia stating the nurses wanted to kill her, but her orientation progressively improved. On exam Dr. Paez found the patient to be home and cooperative, but malodorous and disheveled. Patient is having periods of confusion alternating with lucidity but is easily redirected. Patient showed insight illness about her MS diagnosis. Recommendations were made for a brain MRI and neurology consult. Dr. Bolton was consulted to assess patient's multiple sclerosis. Patient a be known to Dr. Costello. Patient was agitated and uncooperative on exam, would not follow simple commands. She has multiple sclerosis with severe spastic paraparesis, presumed dementia secondary to MS. Possible sepsis, rhabdomyolysis and acute on chronic encephalopathy. Recommendations for the patient to continue Avonex, although it is likely no longer beneficial at this stage of MS ; recommendations to reduce medications (Assaria, Cymbalta,MS Contin) that may be a contributing to patient's encephalopathy. Palliative Care was consulted to assist with symptom management and to discuss with the patient/family the benefits and burdens of her current illnesses and the options regarding future care. . Function/Cognitive Trajectory Patient states she was diagnoses with MS approximately 15 years ago which is why she is disabled. The patient has had multiple recurrent hospitalizations at [facility] and [facility]. She is currently non-ambulatory with severe spastic paraparesis. The patient is completely dependent for care. Per EMR, there is a documented weight loss of 50+ pounds over the past 6 months. She presented to [place] ED as a Backer Act after being found by the police covered in urine, feces and vomit. Patient was subsequently admitted for medical management rhabdomyolysis, dehydration and/or urosepsis. Patient refusing to participate in therapy. . Review of Systems ROS Limitations: Altered Mental Status, Uncooperative, Poor Historian, Other ( Patient provided limited information. ROS obtained through review of documentation and report) Constitutional: COMPLAINS OF: Weight loss (50+ pound weight loss over the past 6 months per EMR), Generalized weakness Endocrine: DENIES: Polydipsia, Polyuria, Polyphagia Eyes: DENIES: Blurred vision, Double Vision Ears, nose, mouth, throat: DENIES: Hearing loss Respiratory: DENIES: Cough, Sputum production, Shortness of breath Cardiovascular: DENIES: Lower Extremity Edema Gastrointestinal: DENIES: Constipation, Diarrhea, Nausea, Vomiting Musculoskeletal: COMPLAINS OF: Decreased range of motion Hematologic/Lymphatics: DENIES: History of transfusions Neurologic: COMPLAINS OF: Localized weakness, Speech Problems, Tremor, Poor Balance, DENIES: Seizures Psychiatric: COMPLAINS OF: Confusion (intermittent), Agitation (intermittent), DENIES: Suicidal Ideation, Homicidal Ideation Past Family Social History Coded Allergies: No Known Allergies (Unverified , 02/24/17) Past Medical History Multiple sclerosis Bilateral lower extremity paraparesis Hypertension Osteoarthritis Chronic pain syndrome . Past Surgical History Right total knee replacement Hamstring contracture release . Reported Medications Enema Disposable (Sodium Phosphates) 1 Raven Raven 1 Applic RECTAL DAILY PRN Multiple Vitamin 1 Tab 1 Tab PO DAILY Tylenol (Acetaminophen) 325 Mg Tab 650 Mg PO Q4H PRN Milk of Magnesia Liq (Magnesium Hydroxide) 400 Mg/5 Ml Susp 30 Ml PO HS PRN Dulcolax Supp (Bisacodyl) 10 Mg Supp 10 Mg RECTAL DAILY IN THE MORNING PRN Magnesium Citrate Liq (Magnesium Citrate) 300 Ml Liq 296 Ml PO DAILY IN THE MORNING PRN Baclofen 10 Mg Tab 10 Mg PO TID Gabapentin 100 Mg Cap 200 Mg PO BID Omeprazole 40 Mg Cap 40 Mg PO DAILY Avonex Inj Kit (Interferon Beta 1a) 30 Mcg/0.5 Ml Syr 30 Mcg IM FRIDAY IN AM . Current Medications Medications (Trade) Dose Ordered Sig/Raffi Route Start Time Stop Time Status Last Admin (NS Flush) 2 ml UNSCH PRN IV FLUSH 03/10/17 20:15 (NS Flush) 2 ml BID IV FLUSH 03/10/17 21:00 03/11/17 22:36 (Tylenol) 650 mg Q4H PRN PO 03/10/17 20:15 03/12/17 09:15 (Zofran Inj) 4 mg Q6H PRN IVP 03/10/17 20:15 (Ambien) 5 mg HS PRN PO 03/10/17 20:15 (Lovenox Inj) 40 mg Q24H SQ 03/10/17 21:00 03/11/17 22:35 (Narcan Inj) 0.4 mg UNSCH PRN IV 03/10/17 20:15 (Heather-Colace) 1 tab BID PO 03/10/17 21:00 03/11/17 22:35 (Milk Of Magnesia Liq) 30 ml Q12H PRN PO 03/10/17 20:15 (Senokot) 17.2 mg Q12H PRN PO 03/10/17 20:15 (Dulcolax Supp) 10 mg DAILY PRN RECTAL 03/10/17 20:15 (Lactulose Liq) 30 ml DAILY PRN PO 03/10/17 20:15 (Lioresal) 10 mg TID PO 03/11/17 09:00 03/12/17 09:14 (Cymbalta Dr) 60 mg DAILY PO 03/11/17 09:00 03/12/17 09:14 (Neurontin) 200 mg BID PO 03/10/17 21:00 03/12/17 09:14 (Assaria 10-325 Mg) 1 tab Q6H PRN PO 03/10/17 20:30 03/11/17 03:59 (Oramorph Sr) 30 mg BID PO 03/10/17 21:00 03/12/17 09:15 (Zanaflex) 2 mg Q6HR PRN PO 03/10/17 20:30 (Protonix) 40 mg DAILY PO 03/11/17 09:00 03/12/17 09:16 (Inderal) 60 mg DAILY PO 03/11/17 09:00 03/12/17 09:16 (Ativan) 0.5 mg Q8H PRN PO 03/10/17 20:30 03/11/17 17:11 (Catapres) 0.1 mg Q6H PRN PO 03/10/17 20:30 Enalaprilat 2.5 mg 2.5 mg Q6H PRN IV PUSH 03/10/17 20:30 03/11/17 12:11 Ceftriaxone Sodium 1000 mg/ Sodium Chloride 100 ml @ 200 mls/hr Q24H IV 03/11/17 17:00 03/11/17 16:34 (D5-1/2 NS + KCl 20 Meq Inj) 1,000 ml @ 84 mls/hr [id number] IV 03/12/17 10:15 . Family History Patient states her mother has MS . Substance Use Tobacco: Patient denies Alcohol: Patient denies Prescription med abuse: Patient denies Illicits: Previous history of cannabis use for medical use reported. . Psychosocial History Patient was born and raised in [place], [place]. She never or had children. She is single and unemployed. 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 . Spiritual/Cultural Factors Jain rosalinda . Living Will: Copy in medical record Health Care Surrogate: Copy in medical record Durable Power of Lab Rn: Never completed Date completed: 11/04/2016 . Health Care Surrogate(s): Patient's mother, Jennifer Lai, is designated as the healthcare surrogate decision maker. . Documented care wishes: Living will was completed on 11/04/2016 and is accessible in the patients EMR. . Today's verbally stated goals: Aggressive goals to the point of cardiopulmonary resuscitation. . Family/friends goals: No family or friends present, patient requested her family not be contacted at this time. . Ethical and Legal Issues No known ethical or legal issues impacting care at this time. . Physical Exam Vital Signs Date Time Temp Pulse Resp B/P Pulse Ox O2 Delivery O2 Flow Rate FiO2 03/12/17 08:00 101.4 130 22 145/87 97 03/12/17 00:00 98.4 64 18 128/67 98 03/11/17 23:26 18 03/11/17 17:11 99.8 113 130/66 97 03/11/17 13:51 101 20 124/72 97 03/11/17 12:04 107 20 186/87 96 . 03/11/17 03/12/17 19:00 07:00 Intake Total 150 ml Output Total 500 ml Balance -350 ml Intake Oral 150 ml Output Urine Total 500 ml . Exam CONSTITUTIONAL/GENERAL: This is a frail, middle-aged female patient with bilateral lower extremity contractures, in no apparent distress. TUBES/LINES/DRAINS: PIV 1 SKIN: No jaundice, rashes, or lesions. Ecchymoses on upper extremities. No wounds seen anteriorly. Skin temperature appropriate. Not diaphoretic. HEAD: Atraumatic. Normocephalic. EYES: Pupils equal and round and reactive. Extraocular motions intact. No scleral icterus. No injection or drainage. Fundi not examined. ENT: Hearing grossly normal. Nose without bleeding or purulent drainage. T NECK: Trachea midline. CARDIOVASCULAR: Regular rate and rhythm without murmurs, gallops, or rubs. No JVD. Peripheral pulses symmetric. RESPIRATORY/CHEST: Symmetric, unlabored respirations. Clear to auscultation. Breath sounds equal bilaterally. No wheezes, rales, or rhonchi. GASTROINTESTINAL: Abdomen soft, non-tender, nondistended. No guarding. Bowel sounds present. GENITOURINARY: Without palpable bladder distension. MUSCULOSKELETAL: Extremities without clubbing or cyanosis. Trace pedal edema bilaterally. LYMPHATICS: No palpable cervical or supraclavicular adenopathy. NEUROLOGICAL: Awake and alert. Answers questions appropriately, follows commands. Moves all extremities. PSYCHIATRIC: No obvious anxiety/depression. No apparent hallucinations or other psychotic thought process. Appears to have good insight related to her MS. . Diagnostic Tests Laboratory Laboratory Tests Test 03/10/17 03/10/17 03/12/17 14:51 14:52 05:25 White Blood Count 9.8 TH/MM3 (4.0-11.0) Red Blood Count 5.87 MIL/MM3 (4.00-5.30) Hemoglobin 13.6 GM/DL (11.6-15.3) Hematocrit 42.4 % (35.0-46.0) Mean Corpuscular Volume 72.2 FL (80.0-100.0) Mean Corpuscular Hemoglobin 23.1 PG (27.0-34.0) Mean Corpuscular Hemoglobin 32.0 % Concent (32.0-36.0) Red Cell Distribution Width 14.5 % (11.6-17.2) Platelet Count 262 TH/MM3 (150-450) Mean Platelet Volume 9.6 FL (7.0-11.0) Neutrophils (%) (Auto) 68.7 % (16.0-70.0) Lymphocytes (%) (Auto) 20.8 % (9.0-44.0) Monocytes (%) (Auto) 10.1 % (0.0-8.0) Eosinophils (%) (Auto) 0.1 % (0.0-4.0) Basophils (%) (Auto) 0.3 % (0.0-2.0) Neutrophils # (Auto) 6.7 TH/MM3 (1.8-7.7) Lymphocytes # (Auto) 2.0 TH/MM3 (1.0-4.8) Monocytes # (Auto) 1.0 TH/MM3 (0-0.9) Eosinophils # (Auto) 0.0 TH/MM3 (0-0.4) Basophils # (Auto) 0.0 TH/MM3 (0-0.2) CBC Comment DIFF FINAL Differential Comment Prothrombin Time 12.2 SEC (9.8-11.6) Prothromb Time International 1.1 RATIO Ratio Activated Partial 28.2 SEC Thromboplast Time (24.3-30.1) Sodium Level 139 MEQ/L 139 MEQ/L (136-145) (136-145) Potassium Level 3.7 MEQ/L 3.1 MEQ/L (3.5-5.1) (3.5-5.1) Chloride Level 105 MEQ/L 105 MEQ/L (98-107) (98-107) Carbon Dioxide Level 23.9 MEQ/L 18.6 MEQ/L (21.0-32.0) (21.0-32.0) Anion Gap 10 MEQ/L (5-15) 15 MEQ/L (5-15) Blood Urea Nitrogen 26 MG/DL (7-18) 10 MG/DL (7-18) Creatinine 0.65 MG/DL 0.40 MG/DL (0.50-1.00) (0.50-1.00) Estimat Glomerular Filtration 116 ML/MIN 204 ML/MIN Rate (>89) (>89) Random Glucose 125 MG/DL 65 MG/DL (74-106) (74-106) Lactic Acid Level 1.7 mmol/L (0.4-2.0) Calcium Level 10.6 MG/DL 8.8 MG/DL (8.5-10.1) (8.5-10.1) Total Bilirubin 0.6 MG/DL (0.2-1.0) Aspartate Amino Transf 49 U/L (15-37) (AST/SGOT) Alanine Aminotransferase 33 U/L (10-53) (ALT/SGPT) Alkaline Phosphatase 76 U/L (45-117) Total Creatine Kinase 1202 U/L 2379 U/L (26-192) (26-192) Creatine Kinase MB 5.8 NG/ML 4.4 NG/ML (0.5-3.6) (0.5-3.6) Creatine Kinase MB % 0.5 % (0.0-4.0) 0.2 % (0.0-4.0) Troponin I LESS THAN 0.02 NG/ML (0.02-0.05) Total Protein 9.2 GM/DL (6.4-8.2) Albumin 3.8 GM/DL (3.4-5.0) Lipase 151 U/L (73-393) Thyroid Stimulating Hormone 0.576 uIU/ML 3rd Gen (0.358-3.740) Ethyl Alcohol Level LESS THAN 3 MG/DL (0-5) Urine Color YELLOW (YELLW/STRAW) Urine Turbidity HAZY (CLEAR) Urine pH 5.5 (5.0-8.5) Urine Specific [place] 1.032 (1.002-1.035) Urine Protein 30 mg/dL (NEG-TRACE) Urine Glucose (UA) NEG mg/dL (NEG) Urine Ketones 40 mg/dL (NEG) Urine Occult Blood NEG (NEG) Urine Nitrite NEG (NEG) Urine Bilirubin NEG (NEG) Urine Urobilinogen 2.0 MG/DL (LESS THAN 2.0) Urine Leukocyte Esterase SMALL (NEG) Urine RBC 7 /hpf (0-3) Urine WBC 6 /hpf (0-5) Urine Calcium Oxalate Crystals RARE /hpf (NONE) Urine Mucus MANY /lpf (OCC) Microscopic Urinalysis Comment CULT NOT INDICATED Urine Opiates Screen POS (NEG) Urine Barbiturates Screen NEG (NEG) Urine Amphetamines Screen NEG (NEG) Urine Benzodiazepines Screen NEG (NEG) Urine Cocaine Screen NEG (NEG) Urine Cannabinoids Screen NEG (NEG) . Result Diagram: 03/10/17 1451 03/12/17 0525 Microbiology Microbiology Date/Time Procedure Status Source Growth 03/10/17 14:51 Aerobic Blood Culture - Preliminary Resulted Blood Peripheral NO GROWTH IN 1 DAY 03/10/17 14:51 Anaerobic Blood Culture - Preliminary Resulted Blood Peripheral NO GROWTH IN 1 DAY 03/10/17 15:01 Aerobic Blood Culture - Preliminary Resulted Blood Peripheral NO GROWTH IN 1 DAY 03/10/17 15:01 Anaerobic Blood Culture - Preliminary Resulted Blood Peripheral NO GROWTH IN 1 DAY . Imaging Last [address] 03/10/17 1236 Signed Impressions: Service Date/Time: Friday, March 10, 2017 13:19 - CONCLUSION: 1. No acute intracranial abnormality identified. Bryan Pappas MD Chest X-Ray 03/10/17 1236 Signed Impressions: Service Date/Time: Friday, March 10, 2017 13:19 - CONCLUSION: 1. No acute cardiopulmonary findings identified. Bryan Pappas MD . Patient/Family Conference Present at Family Conference: Meet with patient at bedside. . Family Conference Location: Bedside Issues Discussed: * Palliative care role, purpose, approach * Additional medical, psychosocial, and spiritual history * Patients general health, functional status, and cognitive changes in the months leading up to the current hospitalization * Patient/family understanding of the current medical problems * Patient/family understanding of prognosis * Patients goals of care as best understood from advance directives and/or conversations and/or values * Current medical treatment options and benefits/burdens of those options * Likely scenarios comparing ongoing aggressive care with a transition to comfort measures only * Questions answered to the best of my ability * Palliative care contact information provided . Assessment and Plan Disease Oriented Problem List: (1) HTN (hypertension) (2) Sepsis (3) UTI (urinary tract infection) (4) Spastic paraplegia (5) Rhabdomyolysis (6) Multiple sclerosis (7) Osteoarthritis Symptom Scale: (1) Pain (2) Debility (3) Altered mental status, unspecified Pertinent Non-Medical Issues Psychosocial: Patient was born and raised in [place], [place]. She never or had children. She is single and unemployed. 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 Spiritual: Jain rosalinda Legal: Patient's mother (Jennifer Lai) is the designated health care surrogate Ethical issues impacting care: No known ethical issues impacting care. . Important Contacts Jennifer Sanchez, mother: [phone] . Prognosis Patient is a 52 year old female with a 15 year history of multiple sclerosis with severe spastic paraparesis and is presumed dementia secondary to the MS. Acute on chronic encephalopathy is multifactorial. She has been disabled for many years with multiple recurrent hospitalizations at [facility] and [facility]. Patient is nonambulatory and dependent for all care; she does not participate in therapy. Currently hospitalized with rhabdomyolysis, dehydration and/or urosepsis after presenting to the ED as a Pastor act. Patient would be appropriate for hospice when/if her medical treatment goals become hospice appropriate. . Code Status: No Code Plan * NO CODE-DNR/DNI * Decision-making: Patient's mother (Jennifer Lai) is the designated health care surrogate. * Discussed case with Cesia Hook ([facility]), requested copies of written advanced directives be faxed to the palliative care team. * DCF is following; message left for Austen Benson at [phone] with care contact information. * Discussed case with case repairer, Maria G, and patient's nurse. * Living will and healthcare surrogate form completed on 11/04/2016. Documentation was faxed to HIM to be scanned into the patient EMR. * Goals: Aggressive up to the point of cardiopulmonary resuscitation. * Patient demonstrates insight in relation to her medical conditions which coincides with psychiatry's ( Dr. Paez) evaluation. Discussed CODE STATUS with patient at length, including the process of cardiopulmonary resuscitation ( impressions, medications, cardioversion, intubation/mechanical ventilation).Ms. Anaya requests no aggressive interventions in the event she should experience cardiopulmonary arrest referring to her diagnoses of MS. * Symptom managementpain: Patient denies pain on exam but reports ongoing intermittent pain. She does not characterize or rate pain. Current orders for baclofen 10 mg PO 3 times a day, Neurontin 200 mg PO twice a day, Oramorph SR 30 mg PO twice a day and Assaria ([id number]) po q6 hours PRN or pain rated 4-10. Patient has required no PRN Assaria in the past 24 hours. Palliative care will continue to monitor and make recommendations as indicated. * Symptom managementdebility: Multiple sclerosis with severe spastic paraparesis, diagnosed 15 years ago. Patient is nonambulatory, dependent for all care. Physical therapy and occupational therapy are following, however the patient refuses to participate in therapy. * Symptom managementaltered mental status: Patient presented to [facility] ED as a Pastor act after being found alone covered in feces, urine and vomiting.Patient having periods of confusion alternating with lucidity; she is easily redirected. Patient showed insight illness about her MS condition her psychiatry. Psychiatry continues to follow; Recommendations were made for a brain MRI and neurology consult. * Palliative care contact information was provided to the patient * Palliative care will continue to follow this patient throughout her hospitalization to establish trust, assist with symptom management and clarification of medical treatment goals. . Thank you for the opportunity to participate in the care of Ms. Anaya. Emeli Tariq Mar 12, 2017 11:33
[2017-03-12] MEDS: POTASSIUM CHLORIDE INJ 20 MEQ, SODIUM BICARBONATE 8.4% INJ 50 MEQ in DEXT 5%-NACL 0.45%... IV SCH (12:34)
[2017-03-12] MEDS: ACETAMINOPHEN/HYDROcodone 325 MG/10 MG TAB PO PRN (13:34)
--- NOTE | 2017-03-12 15:20 | PD.WCN.NOT ---
Wound Consult Description: Patient seen in G pod CDU for evaluation of LLE blister.assessed patinet with the assistance of MAXIME Bunn CDU. Wound to L medial collins is noted with 100% pink partial thickness skin loss that appears to be resolving. Wound is noted with scant serous drainage without odor. Wound measurements are as follows ~2 x~0.5 x ~<0.1Periwound is noted with scar tissue but is otherwise unremarkable. Patient also noted with L lateral ankle wound that is measuring ~1.5cm x ~ 1.5cm x ~<0.1 cm. Wound noted with 50% pink tissue and 50% clean red non granulation tissue in wound bed. Wound has minimal sanguinous drainage without odor. Periwound is unremarkable . Cleansed both wound to LLE with normal saline and applied oil emulsion gauze in single layer just over wound beds and covered with dry 4x4 gauze pads. Applied skin prep before securing dressings with rolled gauze and tape Communicated with: MAXIME Bunn and Doctor Bills Recommendation: Please cleanse wounds to LLE with normal saline or wound cleanser and pat dry. Apply Xeroform in single layer just over wound beds. Please secure dressings with rolled gauze and tape or secure dressing with paper tape and change dressing every other day or PRN if saturated or dislodged. Page [place] [facility] Mar 12, 2017 15:20
[2017-03-12] MEDS: cefTRIAXone INJ 1,000 MG in SODIUM CHLORIDE 0.9% INJ 100 ML IV SCH (16:25)
[2017-03-12] MEDS: ENOXAPARIN SODIUM 40 MG/0.4 ML SYRINGE SQ SCH (21:00)
[2017-03-13] MEDS: POTASSIUM CHLORIDE INJ 20 MEQ, SODIUM BICARBONATE 8.4% INJ 50 MEQ in DEXT 5%-NACL 0.45%... IV SCH ×2 (00:16→12:54)
[2017-03-13 04:00] VITALS: BP 125/77; PULSE 107; RESP 18; TEMP 99.9; O2SAT 96
[2017-03-13 07:55] LABS: AUTOMATED NEUTROPHIL # 7.5 TH/MM3 (1.8-7.7); BASOPHIL % 0.1 % (0.0-2.0); EOSINOPHIL % 0.3 % (0.0-4.0); HEMATOCRIT 30.9 % (35.0-46.0); HEMO FLAGS DIFF FINAL; LYMPH % 13.3 % (9.0-44.0); LYMPHOCYTE # 1.4 TH/MM3 (1.0-4.8); MEAN CELL VOLUME 73.2 FL (80.0-100.0); MEAN CORPUSCULAR HEMOGLOBIN 23.4 PG (27.0-34.0); MONO % 13.8 % (0.0-8.0); NEUT % 72.5 % (16.0-70.0); PLATELET COUNT 152 TH/MM3 (150-450); RED BLOOD COUNT 4.22 MIL/MM3 (4.00-5.30); RED CELL DISTRIBUTION WIDTH 13.9 % (11.6-17.2); WHITE BLOOD COUNT 10.3 TH/MM3 (4.0-11.0)
[2017-03-13 08:31] LABS: BICARBONATE 26.3 MEQ/L (21.0-32.0); POTASSIUM 3.6 MEQ/L (3.5-5.1)
[2017-03-13 08:36] VITALS: BP 120/68; PULSE 100; RESP 18; TEMP 99.6; O2SAT 100
[2017-03-13] MEDS: DOCUSATE SODIUM 50 MG/SENNA 8.6 MG TAB PO SCH ×2 (09:59→22:32)
[2017-03-13] MEDS: GABAPENTIN 100 MG CAP PO SCH ×2 (09:59→22:31)
[2017-03-13] MEDS: PANTOPRAZOLE SOD 40 MG DELAYED RELEASE TAB PO SCH (09:59)
[2017-03-13] MEDS: BACLOFEN 10 MG TAB PO SCH ×3 (09:59→17:44)
[2017-03-13] MEDS: PROPRANOLOL HCL 20 MG TAB PO SCH (09:59)
[2017-03-13] MEDS: MORPHINE SULFATE 30 MG CONTROLLED RELEASE TAB PO SCH ×2 (10:00→22:31)
--- NOTE | 2017-03-13 10:04 | HHI.HCPN ---
Reason for visit a. To assist with evaluation and management of symptoms including: debility , pain, altered mental status b. To assist medical decision maker(s) with: better understanding of current medical conditions; weighing benefits/burdens of medical treatment options; making medical treatment decisions. . Subjective/Interval History Ms. Anaya is a 52-year-old female who presented to [facility] on 03/10/2017 as a Pastor act after being found alone lying on the floor with altered mental status and covered in feces, urine and vomit. She is a resident at [facility]; she signed out on a AUNG on Friday03/08/17 but did not return later that day as expected. Past medical history is significant for multiple sclerosis with severe spastic paraparesis, chronic pain syndrome, contractures , hypertension and osteoarthritis. Patient was subsequently admitted for further evaluation and medical management of rhabdomyolysis, urinary tract infection and altered mental status. Psychiatry and neurology are following. Darby act was lifted on 03/11/2017. Oral temperature 99.6; Blood cultures negative to date - on Ceftriaxone 1G q24 hours IV. Normal chest x-ray and CT head on 03/10/17 WBC 10.3, hemoglobin 9.9, hematocrit 30.9, platelets 152, neutrophils 72.5% BUN: 8, creatinine 0.42, GFR 192 Patient is alert and oriented on exam, responding to questions appropriately and following commands.normal insight and judgment. Patient denies shortness of breath. Respirations are unlabored @16bpm; oxygen saturation 100% on room air. Heart rate of 100, regular rhythm; BP 120/68. Patient reporting ongoing discomfort in bilateral lower extremities described as "pins and needles"; denies pain elsewhere but grimaces and yells out with anticipatory pain when bilateral lower extremities were visually examined. == Neuropathic pain: currently on Cymbalta 60mg PO daily and Gabapentin 200mg PO 2 times daily for neuropathic pain. Catapres is ordered 0.1 mg PO [id number] PRN for SBP > 160, DBP > 90; Catapres can be used to manage neuropathic pain- recommended dose is 0.1 mg by mouth TID. Opioids are available, however neuropathic pain may be unresponsive or only partially responsive to opioid therapy. == Oramorph SR 30mg PO 2 times daily and PRN [place] (10-325mg) PO q6 hours PRN are also ordered but is not always effective in management of neuropathic pain. Patient has received [place] 10-325mg x 1 in the past 24 hours. Recommendations to administer PRN [place] prior to wound care. Another option would be to use Methadone instead of Oramorph because of its effect on NMDA receptors which will more likely be effective in the management of neuropathic pain than typical opioid such as morphine. Would suggest starting methadone at 5mg PO q12 hours. . Advance Directives Living Will: Copy in medical record Health Care Surrogate: Copy in medical record Durable Power of Vault Custodian: Never completed Advance Directive Specifics Date completed: 11/04/2016 . Health Care Surrogate(s): Patient's mother, Jennifer Lai, is designated as the healthcare surrogate decision maker. . Documented care wishes: Living will was completed on 11/04/2016 and is accessible in the patients EMR. Copy placed in patient's paper chart as well. . Objective Vital Signs Date Time Temp Pulse Resp B/P Pulse Ox O2 Delivery O2 Flow Rate FiO2 03/13/17 08:36 99.6 100 18 120/68 100 03/13/17 04:00 99.9 107 18 125/77 96 03/13/17 00:41 16 03/12/17 21:56 108 17 152/75 03/12/17 20:00 97.0 75 17 110/72 97 03/12/17 16:00 97.3 89 18 103/60 97 03/12/17 14:10 97.3 03/12/17 12:00 96.9 89 18 98/53 98 . Physical Exam CONSTITUTIONAL/GENERAL: This is a frail, middle-aged female patient who is bedbound with bilateral lower extremity contractures TUBES/LINES/DRAINS: PIV 1 SKIN: No jaundice, rashes, or lesions. Wounds on BLE with dressing C/D/I HEAD: Atraumatic. Normocephalic. EYES: Pupils equal and round and reactive. No injection or drainage. Fundi not examined. ENT: Hearing grossly normal. Nose without bleeding or purulent drainage. NECK: Trachea midline. CARDIOVASCULAR: Tachycardic, regular rhythm without murmurs, gallops, or rubs. No JVD. Peripheral pulses symmetric. RESPIRATORY/CHEST: Symmetric, unlabored respirations. Clear to auscultation. Breath sounds equal bilaterally. No wheezes, rales, or rhonchi. GASTROINTESTINAL: Abdomen soft, non-tender, nondistended. No guarding. Bowel sounds present. GENITOURINARY: Without palpable bladder distension. MUSCULOSKELETAL: Extremities without clubbing or cyanosis. Wounds on LLE with dressing intact. Feet are edematous and reddened bilaterally. LYMPHATICS: No palpable cervical or supraclavicular adenopathy. NEUROLOGICAL: Awake and alert. Answers questions appropriately, follows commands. Moves all extremities. PSYCHIATRIC: No obvious anxiety/depression. No apparent hallucinations or other psychotic thought process. Appears to have good insight related to her MS. . Diagnostic Tests Laboratory Laboratory Tests Test 03/10/17 03/10/17 03/12/17 03/13/17 14:51 14:52 05:25 06:35 White Blood Count 9.8 TH/MM3 10.3 TH/MM3 (4.0-11.0) (4.0-11.0) Red Blood Count 5.87 MIL/MM3 4.22 MIL/MM3 (4.00-5.30) (4.00-5.30) Hemoglobin 13.6 GM/DL 9.9 GM/DL (11.6-15.3) (11.6-15.3) Hematocrit 42.4 % 30.9 % (35.0-46.0) (35.0-46.0) Mean Corpuscular Volume 72.2 FL 73.2 FL (80.0-100.0) (80.0-100.0) Mean Corpuscular Hemoglobin 23.1 PG 23.4 PG (27.0-34.0) (27.0-34.0) Mean Corpuscular Hemoglobin 32.0 % 32.0 % Concent (32.0-36.0) (32.0-36.0) Red Cell Distribution Width 14.5 % 13.9 % (11.6-17.2) (11.6-17.2) Platelet Count 262 TH/MM3 152 TH/MM3 (150-450) (150-450) Mean Platelet Volume 9.6 FL 9.9 FL (7.0-11.0) (7.0-11.0) Neutrophils (%) (Auto) 68.7 % 72.5 % (16.0-70.0) (16.0-70.0) Lymphocytes (%) (Auto) 20.8 % 13.3 % (9.0-44.0) (9.0-44.0) Monocytes (%) (Auto) 10.1 % 13.8 % (0.0-8.0) (0.0-8.0) Eosinophils (%) (Auto) 0.1 % (0.0-4.0) 0.3 % (0.0-4.0) Basophils (%) (Auto) 0.3 % (0.0-2.0) 0.1 % (0.0-2.0) Neutrophils # (Auto) 6.7 TH/MM3 7.5 TH/MM3 (1.8-7.7) (1.8-7.7) Lymphocytes # (Auto) 2.0 TH/MM3 1.4 TH/MM3 (1.0-4.8) (1.0-4.8) Monocytes # (Auto) 1.0 TH/MM3 1.4 TH/MM3 (0-0.9) (0-0.9) Eosinophils # (Auto) 0.0 TH/MM3 0.0 TH/MM3 (0-0.4) (0-0.4) Basophils # (Auto) 0.0 TH/MM3 0.0 TH/MM3 (0-0.2) (0-0.2) CBC Comment DIFF FINAL DIFF FINAL Differential Comment Prothrombin Time 12.2 SEC (9.8-11.6) Prothromb Time International 1.1 RATIO Ratio Activated Partial 28.2 SEC Thromboplast Time (24.3-30.1) Sodium Level 139 MEQ/L 139 MEQ/L 138 MEQ/L (136-145) (136-145) (136-145) Potassium Level 3.7 MEQ/L 3.1 MEQ/L 3.6 MEQ/L (3.5-5.1) (3.5-5.1) (3.5-5.1) Chloride Level 105 MEQ/L 105 MEQ/L 103 MEQ/L (98-107) (98-107) (98-107) Carbon Dioxide Level 23.9 MEQ/L 18.6 MEQ/L 26.3 MEQ/L (21.0-32.0) (21.0-32.0) (21.0-32.0) Anion Gap 10 MEQ/L (5-15) 15 MEQ/L (5-15) 9 MEQ/L (5-15) Blood Urea Nitrogen 26 MG/DL (7-18) 10 MG/DL (7-18) 8 MG/DL (7-18) Creatinine 0.65 MG/DL 0.40 MG/DL 0.42 MG/DL (0.50-1.00) (0.50-1.00) (0.50-1.00) Estimat Glomerular Filtration 116 ML/MIN 204 ML/MIN 192 ML/MIN Rate (>89) (>89) (>89) Random Glucose 125 MG/DL 65 MG/DL 145 MG/DL (74-106) (74-106) (74-106) Lactic Acid Level 1.7 mmol/L (0.4-2.0) Calcium Level 10.6 MG/DL 8.8 MG/DL 8.7 MG/DL (8.5-10.1) (8.5-10.1) (8.5-10.1) Total Bilirubin 0.6 MG/DL (0.2-1.0) Aspartate Amino Transf 49 U/L (15-37) (AST/SGOT) Alanine Aminotransferase 33 U/L (10-53) (ALT/SGPT) Alkaline Phosphatase 76 U/L (45-117) Total Creatine Kinase 1202 U/L 2379 U/L (26-192) (26-192) Creatine Kinase MB 5.8 NG/ML 4.4 NG/ML (0.5-3.6) (0.5-3.6) Creatine Kinase MB % 0.5 % (0.0-4.0) 0.2 % (0.0-4.0) Troponin I LESS THAN 0.02 NG/ML (0.02-0.05) Total Protein 9.2 GM/DL (6.4-8.2) Albumin 3.8 GM/DL (3.4-5.0) Lipase 151 U/L (73-393) Thyroid Stimulating Hormone 0.576 uIU/ML 3rd Gen (0.358-3.740) Ethyl Alcohol Level LESS THAN 3 MG/DL (0-5) Urine Color YELLOW (YELLW/STRAW) Urine Turbidity HAZY (CLEAR) Urine pH 5.5 (5.0-8.5) Urine Specific [place] 1.032 (1.002-1.035) Urine Protein 30 mg/dL (NEG-TRACE) Urine Glucose (UA) NEG mg/dL (NEG) Urine Ketones 40 mg/dL (NEG) Urine Occult Blood NEG (NEG) Urine Nitrite NEG (NEG) Urine Bilirubin NEG (NEG) Urine Urobilinogen 2.0 MG/DL (LESS THAN 2.0) Urine Leukocyte Esterase SMALL (NEG) Urine RBC 7 /hpf (0-3) Urine WBC 6 /hpf (0-5) Urine Calcium Oxalate Crystals RARE /hpf (NONE) Urine Mucus MANY /lpf (OCC) Microscopic Urinalysis Comment CULT NOT INDICATED Urine Opiates Screen POS (NEG) Urine Barbiturates Screen NEG (NEG) Urine Amphetamines Screen NEG (NEG) Urine Benzodiazepines Screen NEG (NEG) Urine Cocaine Screen NEG (NEG) Urine Cannabinoids Screen NEG (NEG) . Result Diagram: 03/13/17 0635 03/13/17 0635 Microbiology Microbiology Date/Time Procedure Status Source Growth 03/10/17 14:51 Aerobic Blood Culture - Preliminary Resulted Blood Peripheral NO GROWTH IN 2 DAYS 03/10/17 14:51 Anaerobic Blood Culture - Preliminary Resulted Blood Peripheral NO GROWTH IN 2 DAYS 03/10/17 15:01 Aerobic Blood Culture - Preliminary Resulted Blood Peripheral NO GROWTH IN 2 DAYS 03/10/17 15:01 Anaerobic Blood Culture - Preliminary Resulted Blood Peripheral NO GROWTH IN 2 DAYS . Imaging Last [address] 03/10/17 1236 Signed Impressions: Service Date/Time: Friday, March 10, 2017 13:19 - CONCLUSION: 1. No acute intracranial abnormality identified. Bryan Pappas MD Chest X-Ray 03/10/17 1236 Signed Impressions: Service Date/Time: Friday, March 10, 2017 13:19 - CONCLUSION: 1. No acute cardiopulmonary findings identified. Bryan Pappas MD . Assessment and Plan Disease Oriented Problem List: (1) HTN (hypertension) (2) Sepsis (3) UTI (urinary tract infection) (4) Spastic paraplegia (5) Rhabdomyolysis (6) Multiple sclerosis (7) Osteoarthritis Symptom Scale: (1) Pain (2) Debility (3) Altered mental status, unspecified Pertinent Non-Medical Issues Psychosocial: Patient was born and raised in [place], [place]. She never or had children. She is single and unemployed. 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 Spiritual: [employer] rosalinda Legal: Patient's mother (Jennifer Lai) is the designated health care surrogate Ethical issues impacting care: No known ethical issues impacting care. . Important Contacts Jennifer Sanchez, mother: [phone] . Prognosis Patient is a 52 year old female with a 15 year history of multiple sclerosis with severe spastic paraparesis and is presumed dementia secondary to the MS. Acute on chronic encephalopathy is multifactorial. She has been disabled for many years with multiple recurrent hospitalizations at [facility]. Patient is nonambulatory and dependent for all care; she does not participate in therapy. Currently hospitalized with rhabdomyolysis, dehydration and/or urosepsis after presenting to the ED as a Pastor act. Patient would be appropriate for hospice when/if her medical treatment goals become hospice appropriate. . Code Status: No Code Plan * NO CODE-DNR/DNI * Decision-making: Patient's mother (Jennifer Lai) is the designated health care surrogate. * Discussed case with patient's nurse, Rhonda. * Copy of Living Will and HCS placed in patient's paper chart; nurse aware. Patient DOES NOT wish to complete community. * Goals: Aggressive up to the point of cardiopulmonary resuscitation. * Symptom managementpain: Patient reporting ongoing discomfort in bilateral lower extremities described as "pins and needles"; denies pain elsewhere but grimaces and yells out with anticipatory pain when bilateral lower extremities were visually examined. == Neuropathic pain: currently on Cymbalta 60mg PO daily and Gabapentin 200mg PO 2 times daily for neuropathic pain. Catapres is ordered 0.1 mg PO [id number] PRN for SBP > 160, DBP > 90; Catapres can be used to manage neuropathic pain- recommended dose is 0.1 mg by mouth TID. Opioids are available, however neuropathic pain may be unresponsive or only partially responsive to opioid therapy. == Oramorph SR 30mg PO 2 times daily and PRN [place] (10-325mg) PO q6 hours PRN are also ordered but is not always effective in management of neuropathic pain. Patient has received [place] 10-325mg x 1 in the past 24 hours. Recommendations to administer PRN [place] prior to wound care. Another option would be to use Methadone instead of Oramorph because of its effect on NMDA receptors which will more likely be effective in the management of neuropathic pain than typical opioid such as morphine. Would suggest starting methadone at 5mg PO q12 hours. * Symptom managementdebility: Multiple sclerosis with severe spastic paraparesis, diagnosed 15 years ago. Patient is nonambulatory, dependent for all care. Physical therapy and occupational therapy are following. Patient did not tolerate passive range of motion to bilateral lower extremities on 2016 per PT note. Patient was residing at [facility] prior to this hospitalization; she is unable to live independently secondary to her debility. CM is involved. * Symptom managementaltered mental status: Patient presented to ED as a Pastor act on 03/10/2017. Symptoms have resolved at this time; patient shows good insight and judgment. Pastor act lifted on 03/11/2017. Psychiatry and neurology are following. Brain MRI recommended. * Palliative care will continue to follow this patient throughout her hospitalization to establish trust, assist with symptom management and clarification of medical treatment goals. . Attestation To help prompt me to consider important information that might be impacting today's encounter and assessment, information from prior notes written by myself or my colleagues may have been "brought forward" into today's note. My signature on this note, however, is an attestation that I personally performed the exam, history, and/or decision-making noted today, and, unless otherwise indicated, the interactions with patient, family, and staff as well as the review of records all occurred today. I also attest that the listed assessment and stated plan reflect my best clinical judgment today based on the combination of historical information, prior notes, and today's exam/ interactions. When time spent is documented, it refers only to time spent today by the signer, or if indicated, combined time spent today by collaborating physician/nurse practitioner. . Emeli Tariq Mar 13, 2017 10:04
[2017-03-13] MEDS: DULoxetine HCl DR 60 MG CAP PO SCH (10:57)
[2017-03-13] MEDS: SODIUM CHLORIDE 0.9% FLUSH 10 ML FLUSH IV FLUSH SCH ×2 (10:57→22:29)
[2017-03-13 12:51] VITALS: BP 128/86; PULSE 92; RESP 18; TEMP 100.3; O2SAT 98
--- NOTE | 2017-03-13 13:47 | HHI.FPPN ---
Subjective Remarks no progress refusing therapy Was refusing therapy at SNF as well. d/w RN Objective Vitals Vital Signs Date Time Temp Pulse Resp B/P Pulse Ox O2 Delivery O2 Flow Rate FiO2 03/13/17 12:51 100.3 92 18 128/86 98 03/13/17 08:36 99.6 100 18 120/68 100 03/13/17 04:00 99.9 107 18 125/77 96 03/13/17 00:41 16 03/12/17 21:56 108 17 152/75 03/12/17 20:00 97.0 75 17 110/72 97 03/12/17 16:00 97.3 89 18 103/60 97 03/12/17 14:10 97.3 I/O 03/12/17 03/12/17 03/12/17 03/13/17 03/13/17 03/13/17 07:00 15:00 23:00 07:00 15:00 23:00 Intake Total 50 ml 640 ml Balance 50 ml 640 ml Intake Oral 50 ml 240 ml IV Total 400 ml # Voids 2 2 Result Diagram: 03/13/1735 03/13/1735 Objective Remarks GENERAL: SKIN: Warm and dry. HEAD: Atraumatic. Normocephalic. EYES: Pupils equal and round. No scleral icterus. No injection or drainage. ENT: No nasal bleeding or discharge. Mucous membranes pink and moist. NECK: Trachea midline. No JVD. CARDIOVASCULAR: Regular rate and rhythm. RESPIRATORY: No accessory muscle use. Clear to auscultation. Breath sounds equal bilaterally. GASTROINTESTINAL: Abdomen soft, non-tender, nondistended. Hepatic and splenic margins not palpable. MUSCULOSKELETAL: bilateral upper and lower extremity severe contractures. LLE with 2 plus edema, good pulses, blister LLE, erthema mid and proximal foot left NEUROLOGICAL: Awake and alert. No obvious cranial nerve deficits. Motor grossly within normal limits. 0-1 out of 5 muscle strength in the arms and legs. Normal speech. PSYCHIATRIC: Appropriate mood and affect; insight and judgment normal. Medications and IVs Current Medications Medications (Trade) Dose Ordered Sig/Raffi Route Start Time Stop Time Status Last Admin (NS Flush) 2 ml UNSCH PRN IV FLUSH 03/10/17 20:15 (NS Flush) 2 ml BID IV FLUSH 03/10/17 21:00 03/13/17 10:57 (Tylenol) 650 mg Q4H PRN PO 03/10/17 20:15 03/12/17 09:15 (Zofran Inj) 4 mg Q6H PRN IVP 03/10/17 20:15 (Ambien) 5 mg HS PRN PO 03/10/17 20:15 (Lovenox Inj) 40 mg Q24H SQ 03/10/17 21:00 03/11/17 22:35 (Narcan Inj) 0.4 mg UNSCH PRN IV 03/10/17 20:15 (Heather-Colace) 1 tab BID PO 03/10/17 21:00 03/13/17 09:59 (Milk Of Magnesia Liq) 30 ml Q12H PRN PO 03/10/17 20:15 (Senokot) 17.2 mg Q12H PRN PO 03/10/17 20:15 (Dulcolax Supp) 10 mg DAILY PRN RECTAL 03/10/17 20:15 (Lactulose Liq) 30 ml DAILY PRN PO 03/10/17 20:15 (Lioresal) 10 mg TID PO 03/11/17 09:00 03/13/17 09:59 (Cymbalta Dr) 60 mg DAILY PO 03/11/17 09:00 03/13/17 10:57 (Neurontin) 200 mg BID PO 03/10/17 21:00 03/13/17 09:59 (Wink 10-325 Mg) 1 tab Q6H PRN PO 03/10/17 20:30 03/12/17 13:34 (Oramorph Sr) 30 mg BID PO 03/10/17 21:00 03/13/17 10:00 (Zanaflex) 2 mg Q6HR PRN PO 03/10/17 20:30 (Protonix) 40 mg DAILY PO 03/11/17 09:00 03/13/17 09:59 (Inderal) 60 mg DAILY PO 03/11/17 09:00 03/13/17 09:59 (Ativan) 0.5 mg Q8H PRN PO 03/10/17 20:30 03/11/17 17:11 (Catapres) 0.1 mg Q6H PRN PO 03/10/17 20:30 Enalaprilat 2.5 mg 2.5 mg Q6H PRN IV PUSH 03/10/17 20:30 03/11/17 12:11 Ceftriaxone Sodium 1000 mg/ Sodium Chloride 100 ml @ 200 mls/hr Q24H IV 03/11/17 17:00 03/12/17 16:25 (KCl Inj/Sodium Bicarbonate 8.4% Inj/D5W-1/2 NS 1000 ml Inj) 1,060 ml @ 84 mls/hr Q19D21P IV 03/12/17 11:38 03/12/17 12:34 A/P Assessment and Plan ASSESSMENT: -Altered mental status due to metabolic encephalopathy secondary to rhabdomyolysis. -Tachycardia secondary to dehydration and/or urosepsis. -Rhabdo due to ischemic LLE due to contractures and being down in her apartment -Multiple sclerosis. -Failure to thrive. -Contractures with resultant ischemic LLE and LLE blister -Hyperglycemia. -Hypercalcemia. -Hypokalemia. PLAN: 1. lowerf ivf, d5 1/2 w K and bicarb 2. Regular diet. 3. Rocephin 1 gram IV q.24 h 4. Wink 10 mg which is her home dose p.r.n. 5. Baclofen 10 t.i.d. 6. Cymbalta 60 mg daily. 7. Lovenox 40 daily for DVT prophylaxis 8. Neurontin 200 b.i.d. 9. Ativan as needed severe anxiety. 10. MS Contin 30 mg b.i.d. 11. Protonix 40 p.o. daily for GI prophylaxis. 12. Restart Inderal 60 mg daily. 13. Zanaflex p.r.n. for spasticity 14. Blood cultures 15. BRENDA hose 16. PT - contractures stretching 17. OT 18. Consult Dr. Costello as she is known to him. 19. Consult Psychiatry. 20. Palliative consult, obviously needs hospice. 21. Hospice consult. Luis Bills MD Mar 13, 2017 13:47
[2017-03-13 16:29] VITALS: BP_SYST 97; BP_SYST 99; BP_DIAS 56; BP_DIAS 59; PULSE 96; RESP 18; TEMP 99.5; O2SAT 97
[2017-03-13] MEDS: cefTRIAXone INJ 1,000 MG in SODIUM CHLORIDE 0.9% INJ 100 ML IV SCH (16:29)
[2017-03-13 20:00] VITALS: BP 105/57; PULSE 96; RESP 17; TEMP 97.8; O2SAT 95
[2017-03-13] MEDS: ENOXAPARIN SODIUM 40 MG/0.4 ML SYRINGE SQ SCH (22:29)
[2017-03-14] VITALS: BP 108/61; PULSE 94; RESP 17; TEMP 99.4; O2SAT 97
[2017-03-14 04:00] VITALS: BP 125/65; PULSE 91; RESP 17; TEMP 98.3; O2SAT 96
[2017-03-14 07:11] LABS: BASOPHIL % 0.1 % (0.0-2.0); EOSINOPHIL # 0.1 TH/MM3 (0-0.4); EOSINOPHIL % 1.3 % (0.0-4.0); HEMATOCRIT 30.1 % (35.0-46.0); HEMO FLAGS DIFF FINAL; LYMPH % 16.1 % (9.0-44.0); LYMPHOCYTE # 1.6 TH/MM3 (1.0-4.8); MEAN CELL VOLUME 73.2 FL (80.0-100.0); MEAN CORPUSCULAR HEMOGLOBIN 23.6 PG (27.0-34.0); MEAN CORPUSCULAR HGB CONC 32.2 % (32.0-36.0); MONO % 13.1 % (0.0-8.0); NEUT % 69.4 % (16.0-70.0); PLATELET COUNT 162 TH/MM3 (150-450); RED BLOOD COUNT 4.11 MIL/MM3 (4.00-5.30); RED CELL DISTRIBUTION WIDTH 13.3 % (11.6-17.2); WHITE BLOOD COUNT 10.1 TH/MM3 (4.0-11.0)
[2017-03-14 07:25] LABS: BICARBONATE 27.8 MEQ/L (21.0-32.0); POTASSIUM 3.7 MEQ/L (3.5-5.1)
[2017-03-14 08:00] VITALS: BP 108/64; PULSE 101; RESP 18; TEMP 100.3; O2SAT 97
--- NOTE | 2017-03-14 08:44 | HHI.PR ---
Review/Management Daily Summary 03/14 awakened and pleasantly confused follows simple commands, script supervisor with right hand, left is spastic more than right legs spastic/ continue conservative supportive care, ?hospice please call neuro prn Subjective Subjective Comments No acute events reported No headache No chest pain No dyspnea Active Medications Current Medications Medications (Trade) Dose Ordered Sig/Raffi Route Start Time Stop Time Status Last Admin (NS Flush) 2 ml UNSCH PRN IV FLUSH 03/10/17 20:15 (NS Flush) 2 ml BID IV FLUSH 03/10/17 21:00 03/13/17 10:57 (Tylenol) 650 mg Q4H PRN PO 03/10/17 20:15 03/12/17 09:15 (Zofran Inj) 4 mg Q6H PRN IVP 03/10/17 20:15 (Ambien) 5 mg HS PRN PO 03/10/17 20:15 (Lovenox Inj) 40 mg Q24H SQ 03/10/17 21:00 03/11/17 22:35 (Narcan Inj) 0.4 mg UNSCH PRN IV 03/10/17 20:15 (Heather-Colace) 1 tab BID PO 03/10/17 21:00 03/13/17 09:59 (Milk Of Magnesia Liq) 30 ml Q12H PRN PO 03/10/17 20:15 (Senokot) 17.2 mg Q12H PRN PO 03/10/17 20:15 (Dulcolax Supp) 10 mg DAILY PRN RECTAL 03/10/17 20:15 (Lactulose Liq) 30 ml DAILY PRN PO 03/10/17 20:15 (Lioresal) 10 mg TID PO 03/11/17 09:00 03/13/17 15:32 (Cymbalta Dr) 60 mg DAILY PO 03/11/17 09:00 03/13/17 10:57 (Neurontin) 200 mg BID PO 03/10/17 21:00 03/13/17 22:31 ([place] 10-325 Mg) 1 tab Q6H PRN PO 03/10/17 20:30 03/12/17 13:34 (Oramorph Sr) 30 mg BID PO 03/10/17 21:00 03/13/17 22:31 (Zanaflex) 2 mg Q6HR PRN PO 03/10/17 20:30 (Protonix) 40 mg DAILY PO 03/11/17 09:00 03/13/17 09:59 (Inderal) 60 mg DAILY PO 03/11/17 09:00 03/13/17 09:59 (Ativan) 0.5 mg Q8H PRN PO 03/10/17 20:30 03/11/17 17:11 (Catapres) 0.1 mg Q6H PRN PO 03/10/17 20:30 Enalaprilat 2.5 mg 2.5 mg Q6H PRN IV PUSH 03/10/17 20:30 03/11/17 12:11 Ceftriaxone Sodium 1000 mg/ Sodium Chloride 100 ml @ 200 mls/hr Q24H IV 03/11/17 17:00 03/13/17 16:29 (KCl Inj/Sodium Bicarbonate 8.4% Inj/D5W-1/2 NS 1000 ml Inj) 1,060 ml @ 30 mls/hr Q24H IV 03/12/17 11:38 03/12/17 12:34 Allergies Allergies Coded Allergies No Known Allergies (Unverified02/24/17) Exam I&O / VS 03/13/17 03/13/17 03/14/17 15:00 23:00 07:00 Intake Total 544 ml Balance 544 ml Intake Oral 40 ml IV Total 504 ml # Voids 4 2 Vital Signs Date Time Temp Pulse Resp B/P Pulse Ox O2 Delivery O2 Flow Rate FiO2 03/14/17 04:00 98.3 91 17 125/65 96 03/14/17 00:00 99.4 94 17 108/61 97 03/13/17 23:30 16 03/13/17 20:00 97.8 96 17 105/57 95 03/13/17 16:29 99.5 96 18 97/56 97 99/59 03/13/17 12:51 100.3 92 18 128/86 98 Respiratory: Lungs CTA, Non-labored respirations, BS equal Cardiology: Normal rate, Normal peripheral perfusion, Regular Rhythm Musculoskeletal: Tenderness Objective Micro and Labs Laboratory Tests Test 03/14/17 06:07 White Blood Count 10.1 Red Blood Count 4.11 Hemoglobin 9.7 Hematocrit 30.1 Mean Corpuscular Volume 73.2 Mean Corpuscular Hemoglobin 23.6 Mean Corpuscular Hemoglobin 32.2 Concent Red Cell Distribution Width 13.3 Platelet Count 162 Mean Platelet Volume 9.2 Neutrophils (%) (Auto) 69.4 Lymphocytes (%) (Auto) 16.1 Monocytes (%) (Auto) 13.1 Eosinophils (%) (Auto) 1.3 Basophils (%) (Auto) 0.1 Neutrophils # (Auto) 7.0 Lymphocytes # (Auto) 1.6 Monocytes # (Auto) 1.3 Eosinophils # (Auto) 0.1 Basophils # (Auto) 0.0 CBC Comment DIFF FINAL Differential Comment Sodium Level 137 Potassium Level 3.7 Chloride Level 102 Carbon Dioxide Level 27.8 Anion Gap 7 Blood Urea Nitrogen 8 Creatinine 0.33 Estimat Glomerular Filtration 254 Rate Random Glucose 110 Calcium Level 8.8 Date/Time Procedure Status Source Growth 03/10/17 15:01 Aerobic Blood Culture - Preliminary Resulted Blood Peripheral NO GROWTH IN 3 DAYS 03/10/17 15:01 Anaerobic Blood Culture - Preliminary Resulted Blood Peripheral NO GROWTH IN 3 DAYS Italo Rothman MD Mar 14, 2017 08:44
[2017-03-14] MEDS: SODIUM CHLORIDE 0.9% FLUSH 10 ML FLUSH IV FLUSH SCH (09:00)
[2017-03-14] MEDS: DOCUSATE SODIUM 50 MG/SENNA 8.6 MG TAB PO SCH ×2 (09:00→12:28)
[2017-03-14] MEDS: DULoxetine HCl DR 60 MG CAP PO SCH (09:29)
[2017-03-14] MEDS: PANTOPRAZOLE SOD 40 MG DELAYED RELEASE TAB PO SCH (09:30)
[2017-03-14] MEDS: MORPHINE SULFATE 30 MG CONTROLLED RELEASE TAB PO SCH (09:30)
[2017-03-14] MEDS: BACLOFEN 10 MG TAB PO SCH ×2 (09:30→12:28)
[2017-03-14] MEDS: PROPRANOLOL HCL 20 MG TAB PO SCH (09:31)
[2017-03-14] MEDS: ACETAMINOPHEN/HYDROcodone 325 MG/10 MG TAB PO PRN ×2 (09:31→13:50)
[2017-03-14] MEDS: GABAPENTIN 100 MG CAP PO SCH (09:33)
[2017-03-14] MEDS ORDERED: METHADONE HCL 10 MG/10 ML ORAL SOLUTION PO SCH (10:00)
--- NOTE | 2017-03-14 10:31 | HHI.FPPN ---
Subjective Remarks more alert c/o severe generalized pain d/w RN D/w hospice consultant Objective Vitals Vital Signs Date Time Temp Pulse Resp B/P Pulse Ox O2 Delivery O2 Flow Rate FiO2 03/14/17 08:00 100.3 101 18 108/64 97 03/14/17 04:00 98.3 91 17 125/65 96 03/14/17 00:00 99.4 94 17 108/61 97 03/13/17 23:30 16 03/13/17 20:00 97.8 96 17 105/57 95 03/13/17 16:29 99.5 96 18 97/56 97 99/59 03/13/17 12:51 100.3 92 18 128/86 98 I/O 03/13/17 03/13/17 03/13/17 03/14/17 03/14/17 03/14/17 07:00 15:00 23:00 07:00 15:00 23:00 Intake Total 544 ml Balance 544 ml Intake Oral 40 ml IV Total 504 ml # Voids 2 4 2 Result Diagram: 03/14/1760603/14/1707 Objective Remarks GENERAL: SKIN: Warm and dry. HEAD: Atraumatic. Normocephalic. EYES: Pupils equal and round. No scleral icterus. No injection or drainage. ENT: No nasal bleeding or discharge. Mucous membranes pink and moist. NECK: Trachea midline. No JVD. CARDIOVASCULAR: Regular rate and rhythm. RESPIRATORY: No accessory muscle use. Clear to auscultation. Breath sounds equal bilaterally. GASTROINTESTINAL: Abdomen soft, non-tender, nondistended. Hepatic and splenic margins not palpable. MUSCULOSKELETAL: bilateral upper and lower extremity severe contractures. LLE with 2 plus edema, good pulses, blister LLE, erthema mid and proximal foot left NEUROLOGICAL: Awake and alert. No obvious cranial nerve deficits. Motor grossly within normal limits. 0-1 out of 5 muscle strength in the arms and legs. Normal speech. PSYCHIATRIC: Appropriate mood and affect; insight and judgment normal. Medications and IVs Current Medications Medications (Trade) Dose Ordered Sig/Raffi Route Start Time Stop Time Status Last Admin (NS Flush) 2 ml UNSCH PRN IV FLUSH 03/10/17 20:15 (NS Flush) 2 ml BID IV FLUSH 03/10/17 21:00 03/13/17 10:57 (Tylenol) 650 mg Q4H PRN PO 03/10/17 20:15 03/12/17 09:15 (Zofran Inj) 4 mg Q6H PRN IVP 03/10/17 20:15 (Ambien) 5 mg HS PRN PO 03/10/17 20:15 (Lovenox Inj) 40 mg Q24H SQ 03/10/17 21:00 03/11/17 22:35 (Narcan Inj) 0.4 mg UNSCH PRN IV 03/10/17 20:15 (Heather-Colace) 1 tab BID PO 03/10/17 21:00 03/13/17 09:59 (Milk Of Magnesia Liq) 30 ml Q12H PRN PO 03/10/17 20:15 (Senokot) 17.2 mg Q12H PRN PO 03/10/17 20:15 (Dulcolax Supp) 10 mg DAILY PRN RECTAL 03/10/17 20:15 (Lactulose Liq) 30 ml DAILY PRN PO 03/10/17 20:15 (Lioresal) 10 mg TID PO 03/11/17 09:00 03/14/17 09:30 (Cymbalta Dr) 60 mg DAILY PO 03/11/17 09:00 03/14/17 09:29 (Neurontin) 200 mg BID PO 03/10/17 21:00 03/14/17 09:33 ([place] 10-325 Mg) 1 tab Q6H PRN PO 03/10/17 20:30 03/14/17 09:31 (Oramorph Sr) 30 mg BID PO 03/10/17 21:00 03/14/17 09:30 (Zanaflex) 2 mg Q6HR PRN PO 03/10/17 20:30 (Protonix) 40 mg DAILY PO 03/11/17 09:00 03/14/17 09:30 (Inderal) 60 mg DAILY PO 03/11/17 09:00 03/14/17 09:31 (Ativan) 0.5 mg Q8H PRN PO 03/10/17 20:30 03/11/17 17:11 (Catapres) 0.1 mg Q6H PRN PO 03/10/17 20:30 Enalaprilat 2.5 mg 2.5 mg Q6H PRN IV PUSH 03/10/17 20:30 03/11/17 12:11 Ceftriaxone Sodium 1000 mg/ Sodium Chloride 100 ml @ 200 mls/hr Q24H IV 03/11/17 17:00 03/13/17 16:29 (KCl Inj/Sodium Bicarbonate 8.4% Inj/D5W-1/2 NS 1000 ml Inj) 1,060 ml @ 30 mls/hr Q24H IV 03/12/17 11:38 03/12/17 12:34 (Methadone Liq) 2.5 mg Q12HR PO 03/14/17 10:00 A/P Assessment and Plan ASSESSMENT: -Altered mental status due to metabolic encephalopathy secondary to rhabdomyolysis. -Tachycardia secondary to dehydration and/or urosepsis. -Rhabdo due to ischemic LLE due to contractures and being down in her apartment -Multiple sclerosis. -Failure to thrive. -Contractures with resultant ischemic LLE and LLE blister -Hyperglycemia. -Hypercalcemia. -Hypokalemia. PLAN: 1. d5 1/2 w K and bicarb 2. Regular diet. 3. Rocephin 1 gram IV q.24 h 4. [place] 10 mg which is her home dose p.r.n. 5. Baclofen 10 t.i.d. 6. Cymbalta 60 mg daily. 7. Lovenox 40 daily for DVT prophylaxis 8. Neurontin 200 b.i.d. 9. Ativan as needed severe anxiety. 10. MS Contin 30 mg b.i.d. 11. Protonix 40 p.o. daily for GI prophylaxis. 12. Restart Inderal 60 mg daily. 13. Zanaflex p.r.n. for spasticity 14. Blood cultures 15. BRENDA tila 16. PT - contractures stretching 17. OT 18. Consult Dr. Costello as she is known to him. 19. Consult Psychiatry. 20. Palliative consult, obviously needs hospice. 21. Hospice consult. Luis Bills MD Mar 14, 2017 10:31
[2017-03-14 11:04] VITALS: BP 110/57; PULSE 74; RESP 16; TEMP 98; O2SAT 98
--- NOTE | 2017-03-14 12:18 | HHI.HCPN ---
Reason for visit a. To assist with evaluation and management of symptoms including: debility , pain, altered mental status b. To assist medical decision maker(s) with: better understanding of current medical conditions; weighing benefits/burdens of medical treatment options; making medical treatment decisions. . Subjective/Interval History Stable, discharge planning, possible hospice care center. Pt still with significant neuropathic pain-- methadone was started by palliative, nsg reports held dose this am due to hypotension-- palliative MD to enter orders to not hold. Labs stable/unremarkable. BC cont to be negative x 4 days. Pt seen in room, hospice admission nurse at bedside. Pt alert, mostly oriented, seems to have reasonable insight.She is eating a sandwich. No distress, c/o her "usual" pain naomi to lower extremities, hypersensitive. Review with pt her pain, diagnosis, care needs and discharge options. Explore her medical conditions are life limiting however she could hope to maintain comfort/quality of life via hospice. She endorses wanting better pain control, understanding her disease processes are life limited, she felt reluctant to go to a hospice facility bc she really wanted to return to [facility]hospice admissions spoke w [facility] who has indicated pt will be able to return there) She also is fearful of dying too soon. Explore care center use for symptom management, better pain control; and very likely pt could return to her known facility soon, as she does not currently appear imminent, her medical condition/ rhabdo has been stabilized. She is in agreement with hospice enrollment and care center for short term to get her pain better controlled. assisted nurse to reposition her in bed. D/w hospice nurse, primary nurse. . Advance Directives Living Will: Copy in medical record Health Care Surrogate: Copy in medical record Durable Power of Information Coordinator: Never completed Advance Directive Specifics Date completed: 11/04/2016 . Health Care Surrogate(s): Patient's mother, Jennifer Lai, is designated as the healthcare surrogate decision maker. . Documented care wishes: Living will was completed on 11/04/2016 and is accessible in the patients EMR. Copy placed in patient's paper chart as well. . Objective Vital Signs Date Time Temp Pulse Resp B/P Pulse Ox O2 Delivery O2 Flow Rate FiO2 03/14/17 11:04 98.0 74 16 110/57 98 03/14/17 08:00 100.3 101 18 108/64 97 6/23/17 04:00 98.3 91 17 125/65 96 03/14/17 00:00 99.4 94 17 108/61 97 03/13/17 23:30 16 03/13/17 20:00 97.8 96 17 105/57 95 03/13/17 16:29 99.5 96 18 97/56 97 99/59 03/13/17 12:51 100.3 92 18 128/86 98 Intake & Output 03/14/17 03/14/17 07:00 19:00 # Voids 2 Physical Exam CONSTITUTIONAL/GENERAL: This is a frail , thin, middle-aged female patient who is bedbound with bilateral lower extremity contractures TUBES/LINES/DRAINS: PIV 1 SKIN: No jaundice, rashes, or lesions. Wounds on BLE with dressing C/D/I, Erythema bilat feet CARDIOVASCULAR: Tachycardic, regular rhythm, no murmur. trace edema LE. Peripheral pulses symmetric. RESPIRATORY/CHEST: Symmetric, unlabored respirations. On room air. Clear to auscultation. Breath sounds equal bilaterally. GASTROINTESTINAL: Abdomen soft, non-tender, nondistended. No guarding. Bowel sounds present. MUSCULOSKELETAL: Extremities without clubbing or cyanosis. + multiple Wounds on LLE with dressing intact. edema + erythema bilateral feet, contracted LE NEUROLOGICAL: Awake and alert. Mostly oriented, appears to have reasonable insight. Answers questions appropriately, follows commands. Moves all extremities, limited movement BLE, + intentional tremor noted UE. PSYCHIATRIC: No obvious anxiety/depression. Appears to have reasonable insight to her conditions. . Diagnostic Tests Laboratory Laboratory Tests Test 03/12/17 03/13/17 03/14/17 05:25 06:35 06:07 Sodium Level 139 MEQ/L 138 MEQ/L 137 MEQ/L (136-145) (136-145) (136-145) Potassium Level 3.1 MEQ/L 3.6 MEQ/L 3.7 MEQ/L (3.5-5.1) (3.5-5.1) (3.5-5.1) Chloride Level 105 MEQ/L 103 MEQ/L 102 MEQ/L (98-107) (98-107) (98-107) Carbon Dioxide Level 18.6 MEQ/L 26.3 MEQ/L 27.8 MEQ/L (21.0-32.0) (21.0-32.0) (21.0-32.0) Anion Gap 15 MEQ/L (5-15) 9 MEQ/L (5-15) 7 MEQ/L (5-15) Blood Urea Nitrogen 10 MG/DL (7-18) 8 MG/DL (7-18) 8 MG/DL (7-18) Creatinine 0.40 MG/DL 0.42 MG/DL 0.33 MG/DL (0.50-1.00) (0.50-1.00) (0.50-1.00) Estimat Glomerular Filtration 204 ML/MIN 192 ML/MIN 254 ML/MIN Rate (>89) (>89) (>89) Random Glucose 65 MG/DL 145 MG/DL 110 MG/DL (74-106) (74-106) (74-106) Calcium Level 8.8 MG/DL 8.7 MG/DL 8.8 MG/DL (8.5-10.1) (8.5-10.1) (8.5-10.1) Total Creatine Kinase 2379 U/L (26-192) Creatine Kinase MB 4.4 NG/ML (0.5-3.6) Creatine Kinase MB % 0.2 % (0.0-4.0) White Blood Count 10.3 TH/MM3 10.1 TH/MM3 (4.0-11.0) (4.0-11.0) Red Blood Count 4.22 MIL/MM3 4.11 MIL/MM3 (4.00-5.30) (4.00-5.30) Hemoglobin 9.9 GM/DL 9.7 GM/DL (11.6-15.3) (11.6-15.3) Hematocrit 30.9 % 30.1 % (35.0-46.0) (35.0-46.0) Mean Corpuscular Volume 73.2 FL 73.2 FL (80.0-100.0) (80.0-100.0) Mean Corpuscular Hemoglobin 23.4 PG 23.6 PG (27.0-34.0) (27.0-34.0) Mean Corpuscular Hemoglobin 32.0 % 32.2 % Concent (32.0-36.0) (32.0-36.0) Red Cell Distribution Width 13.9 % 13.3 % (11.6-17.2) (11.6-17.2) Platelet Count 152 TH/MM3 162 TH/MM3 (150-450) (150-450) Mean Platelet Volume 9.9 FL 9.2 FL (7.0-11.0) (7.0-11.0) Neutrophils (%) (Auto) 72.5 % 69.4 % (16.0-70.0) (16.0-70.0) Lymphocytes (%) (Auto) 13.3 % 16.1 % (9.0-44.0) (9.0-44.0) Monocytes (%) (Auto) 13.8 % 13.1 % (0.0-8.0) (0.0-8.0) Eosinophils (%) (Auto) 0.3 % (0.0-4.0) 1.3 % (0.0-4.0) Basophils (%) (Auto) 0.1 % (0.0-2.0) 0.1 % (0.0-2.0) Neutrophils # (Auto) 7.5 TH/MM3 7.0 TH/MM3 (1.8-7.7) (1.8-7.7) Lymphocytes # (Auto) 1.4 TH/MM3 1.6 TH/MM3 (1.0-4.8) (1.0-4.8) Monocytes # (Auto) 1.4 TH/MM3 1.3 TH/MM3 (0-0.9) (0-0.9) Eosinophils # (Auto) 0.0 TH/MM3 0.1 TH/MM3 (0-0.4) (0-0.4) Basophils # (Auto) 0.0 TH/MM3 0.0 TH/MM3 (0-0.2) (0-0.2) CBC Comment DIFF FINAL DIFF FINAL Differential Comment Result Diagram: 03/14/1760603/14/17606 Imaging Last Impressions Head CT 03/10/17 1236 Signed Impressions: Service Date/Time: Friday, March 10, 2017 13:19 - CONCLUSION: 1. No acute intracranial abnormality identified. Bryan Pappas MD Chest X-Ray 03/10/17 1236 Signed Impressions: Service Date/Time: Friday, March 10, 2017 13:19 - CONCLUSION: 1. No acute cardiopulmonary findings identified. Bryan Pappas MD Assessment and Plan Disease Oriented Problem List: (1) HTN (hypertension) (2) Sepsis (3) UTI (urinary tract infection) (4) Spastic paraplegia (5) Rhabdomyolysis (6) Multiple sclerosis (7) Osteoarthritis Symptom Scale: (1) Pain (2) Debility (3) Altered mental status, unspecified Pertinent Non-Medical Issues Psychosocial: Patient was born and raised in [place], [place]. She never or had children. She is single and unemployed. 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 Spiritual: Lutheran rosalinda Legal: Patient's mother (Jennifer Lai) is the designated health care surrogate Ethical issues impacting care: No known ethical issues impacting care. . Important Contacts Jennifer Sanchez, mother: [phone] . Prognosis Patient is a 52 year old female with a 15 year history of multiple sclerosis with severe spastic paraparesis and is presumed dementia secondary to the MS. Acute on chronic encephalopathy is multifactorial. She has been disabled for many years with multiple recurrent hospitalizations at [facility] and [facility]. Patient is nonambulatory and dependent for all care; she does not participate in therapy. Currently hospitalized with rhabdomyolysis, dehydration and/or urosepsis after presenting to the ED as a Pastor act. Patient would be appropriate for hospice when/if her medical treatment goals become hospice appropriate. . Code Status: No Code Plan * NO CODE-DNR/DNI * Decision-making: Patient's mother (Jennifer Lai) is the designated health care surrogate.Pt w some reasonable insight, able to participate in decision making. * Goals: comfort focus, maximize pain control, elected hospice, with short term care center placement for pain control, hospice assisting for possible transfer to care center today * Symptom management pain: Patient reporting ongoing discomfort in bilateral lower extremities described as "pins and needles"; denies pain elsewhere but grimaces and yells out with anticipatory pain when bilateral lower extremities were visually examined. == Neuropathic pain: currently on Cymbalta 60mg PO daily and Gabapentin 200mg PO 2 times daily for neuropathic pain. Catapres is ordered 0.1 mg PO [id number] PRN for SBP > 160, DBP > 90; Catapres can be used to manage neuropathic pain- recommended dose is 0.1 mg by mouth TID. Opioids are available, however neuropathic pain may be unresponsive or only partially responsive to opioid therapy. == Oramorph SR 30mg PO 2 times daily and PRN [place] (10-325mg) PO q6 hours PRN are also ordered but is not always effective in management of neuropathic pain. Patient has received [place] 10 x1 in past 24 hr Methadone has been added 2.5mg PO Q12 hrs, would uptitrate in 3-4 days; instructed nursing NOT to hold for low BP debility: Multiple sclerosis with severe spastic paraparesis, diagnosed 15 years ago. Patient is nonambulatory, dependent for all care. Physical therapy and occupational therapy are following. Patient did not tolerate passive range of motion to bilateral lower extremities on 03/12/2017 per PT note. Patient was residing at [facility] prior to this hospitalization; she is unable to live independently secondary to her debility. CM is involved. not likely to benefit from ongoing aggressive PT/attempts at strengthening. altered mental status: Patient presented to ED as a Pastor act on 03/10/2017. Symptoms have resolved at this time; patient shows good insight and judgment. Pastor act lifted on 03/11/2017. Psychiatry and neurology are following. * Palliative care will continue to follow this patient throughout her hospitalization to establish trust, assist with symptom management and clarification of medical treatment goals. . Time Spent Total Floor Time (mins): 30 Attestation To help prompt me to consider important information that might be impacting today's encounter and assessment, information from prior notes written by myself or my colleagues may have been "brought forward" into today's note. My signature on this note, however, is an attestation that I personally performed the exam, history, and/or decision-making noted today, and, unless otherwise indicated, the interactions with patient, family, and staff as well as the review of records all occurred today. I also attest that the listed assessment and stated plan reflect my best clinical judgment today based on the combination of historical information, prior notes, and today's exam/ interactions. When time spent is documented, it refers only to time spent today by the signer, or if indicated, combined time spent today by collaborating physician/nurse practitioner. Suzy Mills Mar 14, 2017 12:18
[2017-03-14] MEDS: LORazepam 0.5 MG TAB PO PRN (13:50)
--- NOTE | 2017-03-23 11:05 | HHI.DS ---
Discharge Summary Admission Date Mar 10, 2017 at 17:02 Discharge Date: Mar 14, 2017 Admitting Diagnosis rhabdomyolysis, UTI, altered mental status, BA (1) Pressure ulcer of left leg, stage 2 (2) Failure to thrive in adult (3) Delirium due to another medical condition (4) Multiple sclerosis (5) Osteoarthritis (6) Rhabdomyolysis (7) Agitation (8) Debility (9) Spastic paraplegia (10) Altered mental status, unspecified (11) Multiple sclerosis Imaging PE at Discharge GENERAL: SKIN: Warm and dry. HEAD: Atraumatic. Normocephalic. EYES: Pupils equal and round. No scleral icterus. No injection or drainage. ENT: No nasal bleeding or discharge. Mucous membranes pink and moist. NECK: Trachea midline. No JVD. CARDIOVASCULAR: Regular rate and rhythm. RESPIRATORY: No accessory muscle use. Clear to auscultation. Breath sounds equal bilaterally. GASTROINTESTINAL: Abdomen soft, non-tender, nondistended. Hepatic and splenic margins not palpable. MUSCULOSKELETAL: Extremities without clubbing, cyanosis, or edema. No obvious deformities. NEUROLOGICAL: Awake and alert. No obvious cranial nerve deficits. Motor grossly within normal limits. 1 out of 5 muscle strength in the arms and legs. Normal speech. PSYCHIATRIC: Appropriate mood and affect; insight and judgment normal. Hospital Course 52 y AAF, ADMIT WITH - -Altered mental status due to metabolic encephalopathy secondary to rhabdomyolysis. -Tachycardia secondary to dehydration and/or urosepsis. -Rhabdo due to ischemic LLE due to contractures and being down in her apartment -Multiple sclerosis. -Failure to thrive. -Contractures with resultant ischemic LLE and LLE blister -Hyperglycemia. -Hypercalcemia. -Hypokalemia. Hospital course and plan was to - 1. d5 1/2 w K and bicarb 2. Regular diet. 3. Rocephin 1 gram IV q.24 h 4. [place] 10 mg which is her home dose p.r.n. 5. Baclofen 10 t.i.d. 6. Cymbalta 60 mg daily. 7. Lovenox 40 daily for DVT prophylaxis 8. Neurontin 200 b.i.d. 9. Ativan as needed severe anxiety. 10. MS Contin 30 mg b.i.d. 11. Protonix 40 p.o. daily for GI prophylaxis. 12. Restart Inderal 60 mg daily. 13. Zanaflex p.r.n. for spasticity 14. Blood cultures 15. BRENDA hose 16. PT - contractures stretching 17. OT 18. Consult Dr. Costello as she is known to him. 19. Consult Psychiatry. 20. Palliative consult, obviously needs hospice. 21. Hospice consulted, admit now to hospice and discharge Discharge Disposition: Hospice/Med Facility Discharge Instructions DIET: Follow Instructions for: As Tolerated, No Restrictions Activities you can perform: See Additionl Instruction, Continue Bedrest Luis Bills MD Mar 23, 2017 11:05
== END 2017-03-14 14:16 | disposition hospice, inpatient (51) | DRG 557 ==
LOC: NEPC 11:26 → NEDA 17:02 → OBSVTOIN 17:02 → INTOOBSV 17:02 → NEPGCP 21:31 → OBSVTOIN 03-11 20:12 → INTOOBSV 03-11 20:12 → HOCA 03-12 15:10
PROVIDERS: ADMIT Family Medicine; ATTEND Family Medicine
DX: M62.82 Rhabdomyolysis (principal); G93.41 Metabolic encephalopathy; F05 Delirium due to known physiological condition; G82.20 Paraplegia, unspecified; N39.0 Urinary tract infection, site not specified; L97.929 Non-pressure chronic ulcer of unspecified part of left lower leg with unspecified severity; E83.52 Hypercalcemia; R62.7 Adult failure to thrive; E86.0 Dehydration; R00.0 Tachycardia, unspecified; M24.50 Contracture, unspecified joint; G35 Multiple sclerosis; R73.9 Hyperglycemia, unspecified; E87.6 Hypokalemia; I10 Essential (primary) hypertension; Z96.651 Presence of right artificial knee joint; S80.822A Blister (nonthermal), left lower leg, initial encounter; X58.XXXA Exposure to other specified factors, initial encounter; G89.4 Chronic pain syndrome; L89.92 Pressure ulcer of unspecified site, stage 2; M19.90 Unspecified osteoarthritis, unspecified site
CPT/HCPCS: 70450; 71010; 76937; 80048; 80053; 80307; 81001; 82550; 82552; 83605; 83690; 84443; 84484; 85025; 85610; 85730; 87040; 93005; 96374; G8987-GO; G8987-GP; G8988-GO; G8988-GP; J0696; J1650; J3480; J7030; P9612